=== PATIENT | female | born 1930 | race Caucasian/White ===

== ENCOUNTER 2016-11-13 17:50 | Observation (INO) | payer MEDICARE, OTHER ==
[2016-11-13] MEDS ORDERED: NITROGLYCERIN 0.4 MG 25 EA TAB SL ONE (18:14)
[2016-11-13] MEDS ORDERED: ASPIRIN TABLET 325 MG TAB PO ONE (18:14)
[2016-11-13] MEDS ORDERED: SODIUM CHLORIDE 0.9% (FLUSH) 10 ML SYG IV PRN ×2 (18:14→20:46)
--- NOTE | 2016-11-13 18:24 | ED.PDOC ---
History of Present Illness - General Source: patient, RN notes reviewed, Vital Signs reviewed Exam Limitations: no limitations - History of Present Illness Initial Comments: Patient reports as she was sitting down to dinner she hit her left elbow and developed numbness in her L hand and forearm. She then got some L neck, jaw and tongue numbness. This occurs with her migraines but she did not develop a migraine. She went to the nurses station at the assisted living facility. Her vitals were normal but her heart rate was noted to be irregular. No chest pain, SOB, nausea or diaphoresis. She does report that a week or so ago the nurse noted her heart rate was irregular too. She was cardioverted last year by Dr. Salvador in [place]. Symptoms are currently completely resolved. Timing/Duration: 1/2 hour Severity: mild Improving Factors: nothing Worsening Factors: nothing Associated Symptoms: denies symptoms <Diane Vaughan - Last Filed: 11/13/16 18:57> <Phyllis Davey - Last Filed: 11/13/16 20:25> - General Chief Complaint: Respiratory Problem Stated Complaint: palpatations, left arm numbness and face prior Time Seen by Provider: 11/13/16 18:11 - History of Present Illness Allergies/Adverse Reactions: Allergies Sulfa Antibiotics Allergy (Verified 11/13/16 18:03) Lorazepam [From Ativan] Adverse Reaction (Unknown, Verified 04/01/16 12:35) Other Makes her mean Aspirin Adverse Reaction (Verified 11/13/16 18:03) Celecoxib [From Celebrex] Adverse Reaction (Verified 11/13/16 18:03) Morphine Adverse Reaction (Verified 04/01/16 12:35) Other Home Medications: Ambulatory Orders Atenolol 25 mg PO DAILY 09/17/12 Estradiol 0.5 mg PO DAILY 10/25/15 Saline [Florence Saline Nasal] 1 gel NA PRN PRN 10/26/15 Ipratropium/Albuterol [Duoneb] 3 ml INH Q4H PRN 10/27/15 Pryor-3 Fatty Acids [[place] Oil-1000 200 mg] 1 cap PO DAILY 10/27/15 Apixaban [Eliquis] 2.5 mg PO BID #60 tab 10/29/15 Atorvastatin Calcium [Lipitor] 10 mg PO DAILY 04/01/16 Flecainide Acetate 50 mg PO BID 04/01/16 Furosemide [Lasix] 20 mg PO QAM PRN 04/01/16 Tramadol HCl 25 mg PO BEDTIME 04/01/16 Umeclidinium-Vilanterol [Anoro Ellipta 62.5-25 Mcg/INH] 1 aer INH DAILY Anoro Ellipta 62.5-25 Mcg/INH 11/13/16 Apixaban [Eliquis] 2.5 mg PO 11/13/16 Furosemide [Lasix] 20 mg PO 11/13/16 Review of Systems - Review of Systems Constitutional: States: no symptoms reported. Denies: diaphoresis, malaise, weakness EENTM: States: no symptoms reported Respiratory: States: no symptoms reported. Denies: orthopnea, short of breath Cardiology: States: no symptoms reported. Denies: chest pain, palpitations, syncope Gastrointestinal/Abdominal: States: no symptoms reported. Denies: nausea Musculoskeletal: States: no symptoms reported Skin: States: no symptoms reported Neurological: States: see HPI, numbness - now resolved. Denies: headache, paresthesia, tingling, tremors, weakness Endocrine: States: no symptoms reported <Diane Vaughan - Last Filed: 11/13/16 18:57> Past Medical History (General) - Patient Medical History Hx Seizures: No Hx Stroke: No Hx Dementia: No Hx Asthma: No Hx of COPD: Yes Hx Cardiac Disorders: Yes Hx Congestive Heart Failure: Yes Hx Pacemaker: No Hx Hypertension: Yes Hx Thyroid Disease: No Hx Diabetes: No Hx Gastroesophageal Reflux: No Hx Renal Disease: No Hx Cancer: Yes - Lung - R pneumonectomy (top 1/3 removed) Hx of HIV: No Hx MRSA: No - Vaccination History Hx Tetanus, Diphtheria Vaccination: Yes Hx Influenza Vaccination: Yes Hx Pneumococcal Vaccination: Yes Immunizations Up to Date: Yes - Social History Hx Tobacco Use: No Hx Chewing Tobacco Use: No Hx Alcohol Use: No Hx Substance Use: No Hx Substance Use Treatment: No Hx Depression: No Feels Threatened In Home Enviroment: No Feels Threatened In a Relationship: No Hx Physical Abuse: No Hx Emotional Abuse: No Hx Suspected Abuse: No - Female History Patient is a Female of Child Bearing Age (10 -59 yrs old): No Patient : No <Diane Vaughan - Last Filed: 11/13/16 18:57> Family Medical History - Family History Father Living Status: Hx Cardiac Disease: Yes <Diane Vaughan - Last Filed: 11/13/16 18:57> Physical Exam - Physical Exam General Appearance: Alert, Comfortable, No apparent distress, Well Developed, Well Groomed, Well Hydrated, Well Nourished Ears, Nose, Throat: hearing grossly normal, normal ENT inspection Neck: non-tender, full range of motion, supple, normal inspection Respiratory: chest non-tender, lungs clear, normal breath sounds, no respiratory distress, no accessory muscle use Cardiovascular/Chest: normal peripheral pulses, no edema, no gallop, no JVD, no murmur, irregularly irregular Gastrointestinal/Abdominal: normal bowel sounds, non tender, soft, no organomegaly Back Exam: normal inspection, CVA tenderness (R) Extremity: normal range of motion, non-tender, normal inspection, no pedal edema Neurologic: no motor/sensory deficits, alert, normal mood/affect, oriented x 3 Skin Exam: normal color, warm/dry Comments: Vital Signs - 24 hr 11/13/16 11/13/16 18:08 18:13 Temperature 98 F Pulse Rate [ 99 H Left Radial] Respiratory 20 20 Rate O2 Sat by Pulse 98 Oximetry <Diane Vaughan - Last Filed: 11/13/16 18:57> Progress - Progress Progress: 11/13/16 18:57 Labs pending. Care to Dr. Davey. - EKG/XRAY/CT EKG: Sinus, Tachy, nonspecific ST T wave Chg, Unchanged from - 04/01/16 Comments: quality assurance monitor shows frequent PVC's but none seen on EKG XRAY: chest - No acute process <Diane Vaughan - Last Filed: 11/13/16 18:57> - Results/Orders Results/Orders: 11/13/16 11/13/16 11/13/16 18:08 18:13 19:00 Temperature 98 F Pulse Rate [ 99 H 93 H Left Radial] Respiratory 20 20 20 Rate Blood Pressure 136/56 [Right Arm] O2 Sat by Pulse 98 Oximetry 11/13/16 20:00 Temperature Pulse Rate [ 93 H Left Radial] Respiratory 20 Rate Blood Pressure 130/74 [Right Arm] O2 Sat by Pulse 94 L Oximetry 11/13/16 18:14 Sodium Chloride 0.9% (Flush) [Saline Flush Syringe] 10 ml IV PRN PRN 11/13/16 18:15 IV Care:Saline Lock per Protoc QSHIFT Telemetry .ONCE EKG Stat Pulse Ox Stat 11/13/16 18:16 Pulse Oximetry Assessment DAILY Laboratory Results WBC 6.9 K/mm3 (4.8-10.8) 11/13/16 18:20 RBC 5.31 M/mm3 (4.20-5.40) 11/13/16 18:20 Hgb 16.0 gm/dL (12.0-16.0) 11/13/16 18:20 Hct 47.6 % (36.0-47.0) H 11/13/16 18:20 MCV 89.5 fl (81.0-99.0) 11/13/16 18:20 MCH 30.1 pg (27.0-31.0) 11/13/16 18:20 MCHC 33.7 g/dL (33.0-37.0) 11/13/16 18:20 RDW 13.5 % (11.5-14.5) 11/13/16 18:20 Plt Count 214 K/mm3 (130-400) 11/13/16 18:20 MPV 8.2 fl (7.40-10.4) 11/13/16 18:20 Absolute Neuts (auto) 3.80 K/uL (1.8-6.8) 11/13/16 18:20 Absolute Lymphs (auto) 2.50 K/uL (1.0-3.4) 11/13/16 18:20 Absolute Monos (auto) 0.50 K/uL (0.2-0.8) 11/13/16 18:20 Absolute Eos (auto) 0.10 K/uL (0.0-0.4) 11/13/16 18:20 Absolute Basos (auto) 0.00 K/uL (0.0-0.1) 11/13/16 18:20 Neutrophils % 54.5 % (42.0-78.0) 11/13/16 18:20 Lymphocytes % 36.5 % (20.0-50.0) 11/13/16 18:20 Monocytes % 7.4 % (2.0-9.0) 11/13/16 18:20 Eosinophils % 1.0 % (1.0-5.0) 11/13/16 18:20 Basophils % 0.6 % (0.0-2.0) 11/13/16 18:20 PT 12.2 SECONDS (9.4-12.5) 11/13/16 18:20 INR 1.080 11/13/16 18:20 PTT (SP) 39.4 SECONDS (25.1-36.5) H 11/13/16 18:20 Sodium 132 mmol/L (135-145) L 11/13/16 18:20 Potassium 4.4 mmol/L (3.6-5.0) 11/13/16 18:20 Chloride 95 mmol/L (101-111) L 11/13/16 18:20 Carbon Dioxide 28 mmol/L (21-31) 11/13/16 18:20 Anion Gap 13.4 (12-18) 11/13/16 18:20 BUN 14 mg/dL (7-18) 11/13/16 18:20 Creatinine 0.49 mg/dL (0.6-1.3) L 11/13/16 18:20 BUN/Creatinine Ratio 28.6 (10-20) H 11/13/16 18:20 Random Glucose 114 mg/dL (70-105) H 11/13/16 18:20 Serum Osmolality 265.9 mOsm/L (275-295) L 11/13/16 18:20 Calcium 9.8 mg/dL (8.4-10.2) 11/13/16 18:20 Magnesium 1.9 mg/dL (1.8-2.5) 11/13/16 18:20 Creatine Kinase 93 IU/L (26-140) 11/13/16 18:20 CK-MB (CK-2) 4.6 ng/mL (0.0-4.4) H* 11/13/16 18:20 CK-MB (CK-2) % 4.95 % (0.0-4.3) H 11/13/16 18:20 Troponin I < 0.02 ng/mL (0.01-0.05) 11/13/16 18:20 B-Natriuretic Peptide 377.0 pg/ml (0-100) H* 11/13/16 18:20 <Phyllis Davey - Last Filed: 11/13/16 20:25> Departure <Diane Vaughan - Last Filed: 11/13/16 18:57> - Departure Time of Disposition: 20:24 <Phyllis Davey - Last Filed: 11/13/16 20:25> - Departure Clinical Impression: Bigeminy, Hyponatremia CHF (congestive heart failure) Qualifiers: Congestive heart failure type: unspecified congestive heart failure type Congestive heart failure chronicity: chronic Qualified Code(s): I50.9 - Heart failure, unspecified Disposition: Admit Patient Departure Forms: ED Discharge - Pt. Copy, Patient Portal Self Enrollment Referrals: Bora Brown MD [Primary Care Provider] - 1-2 Weeks Home Medications: Ambulatory Orders Atenolol 25 mg PO DAILY 09/17/12 Estradiol 0.5 mg PO DAILY 10/25/15 Saline [[place]orence Saline Nasal] 1 gel NA PRN PRN 10/26/15 Ipratropium/Albuterol [Duoneb] 3 ml INH Q4H PRN 10/27/15 Pryor-3 Fatty Acids [[place] Oil-1000 200 mg] 1 cap PO DAILY 10/27/15 Apixaban [Eliquis] 2.5 mg PO BID #60 tab 10/29/15 Atorvastatin Calcium [Lipitor] 10 mg PO DAILY 04/01/16 Flecainide Acetate 50 mg PO BID 04/01/16 Furosemide [Lasix] 20 mg PO QAM PRN 04/01/16 Tramadol HCl 25 mg PO BEDTIME 04/01/16 Umeclidinium-Vilanterol [Anoro Ellipta 62.5-25 Mcg/INH] 1 aer INH DAILY Anoro Ellipta 62.5-25 Mcg/INH 11/13/16 Apixaban [Eliquis] 2.5 mg PO 11/13/16 Furosemide [Lasix] 20 mg PO 11/13/16 Decision To Admit - Decistion To Admit Decision to Admit Reason: Medical Nature Decision to Admit Date: 11/13/16 Decision to Admit Time: 20:15 <Phyllis Davey - Last Filed: 11/13/16 20:25>
--- NOTE | 2016-11-13 18:47 | RAD ---
EXAM DESCRIPTION: Chest,1 View CLINICAL HISTORY: shortness of breath COMPARISON: October 26, 2015 FINDINGS: Cardiac silhouette is within normal limits. There are surgical clips in the right hilum with right apical capping unchanged compared with the prior exam and compatible with partial lung resection. There is atherosclerosis. EKG leads project over the chest. There is no focal parenchymal or pleural disease. There is no acute osseous process visualized. IMPRESSION: No evidence of acute cardiopulmonary disease. Electronically signed by: Oh Pedroza MD 11/13/2016 6:46 PM CDT
[2016-11-13] MEDS ORDERED: SODIUM CHLORIDE 0.9% 1000ML 1,000 ML IVS PRN (20:46)
[2016-11-13] MEDS ORDERED: LEVALBUTEROL NEBS 0.63 MG/3 ML VIAL INH PRN (20:46)
[2016-11-13] MEDS ORDERED: HYDROcodone 5MG/APAP 325MG 1 EA TAB PO PRN (20:46)
[2016-11-13] MEDS ORDERED: MAGNESIUM HYDROXIDE 30 ML UD PO PRN (20:46)
[2016-11-13] MEDS ORDERED: traMADol HCL 50 MG TAB PO SCH (21:00)
[2016-11-13] MEDS ORDERED: IV SET AND CAP CHANGE INJ INJ SCH (21:00)
[2016-11-13] MEDS: APIXABAN 2.5 MG TAB PO SCH (22:09)
[2016-11-13] MEDS: FUROSEMIDE INJ 20 MG/2 ML VIAL IV SCH (22:09)
[2016-11-14] MEDS ORDERED: LEVALBUTEROL NEBS 1.25 MG/3 ML VIAL INH SCH
[2016-11-14 04:00] VITALS: O2SAT 98
[2016-11-14 06:13] VITALS: BP 106/61; TEMP 98
[2016-11-14] MEDS ORDERED: OMEPRAZOLE CAP 20 MG CAP PO SCH (06:30)
[2016-11-14] MEDS ORDERED: ATENOLOL 25 MG TAB PO SCH (09:00)
[2016-11-14] MEDS: APIXABAN 2.5 MG TAB PO SCH (09:43)
[2016-11-14] MEDS: FUROSEMIDE INJ 20 MG/2 ML VIAL IV SCH (09:43)
--- NOTE | 2016-11-14 18:11 | SSS ---
DATE OF ADMISSION: 11/13/16 DIAGNOSES ON DISCHARGE: 1. Hyponatremia. 2. Cardiac dysrhythmia with PVCs and history of atrial fibrillation. 3. Chronic history of recurring atrial fibrillation on rate control medications as well as Eliquis anticoagulation being followed by Dr. Salvador, apprentice. 4. Mild trauma to the elbow resulting in paresthesias, now resolved. 5. History of chronic obstructive pulmonary disease currently stable. 6. History of hypertension. 7. History of osteoporosis. 8. History of lung cancer in the past with lung resection of the right lobe in 1998. 9. History of migraine headaches with associated neurological symptoms of paresthesias, currently stable. 10. History of chronic hyponatremia showing improvement with gentle fluid restrictions and slight loop diuresis. HISTORY OF PRESENT ILLNESS: This 86 year-old white female was placed in the hospital for overnight observation from the Emergency Room after coming from [place] where she is a resident. She was in the dining room and hit her elbow on the back of a chair and had acute paresthesias extending from the fingers up to the elbow and eventually up to the arm. She eventually noted some numbness on the left cheek and to both sides of her mouth which has subsequently resolved completely even before arriving into the Emergency Room. Nurse at [place] noted some irregularities of her pulse and in the Emergency Room was found to have some isolated PVCs and/or PACs which have been noted in the past. History of atrial fibrillation with an ablation therapy in the past by Dr. Salvador currently on rate control as well as anticoagulant medications. Her sodium was a little on the low side at 132 and was placed for observation to make sure that this did not worsen. She is on special outpatient treatment for her chronic obstructive pulmonary disease and h.s. oxygen. PAST MEDICAL HISTORY: 1. Chronic obstructive pulmonary disease. 2. Peripheral vascular disease. 3. Elevated lipids. 4. Hypertension. 5. Osteoporosis. 6. Osteoarthritis. 7. Lung cancer with right lobe removed in 1998. 8. Chronic migraine headaches. PAST SURGICAL HISTORY: 1. Appendectomy in 1947. 2. Hysterectomy in 1977 with bilateral salpingo-oophorectomy. 3. Right upper lobe lung resection in 1998. 4. Bladder suspension. 5. Cataracts removal bilaterally in 2014. CURRENT MEDICATIONS: Please refer to nurses' notes for an up to date list of medications verified as being taken at home. ALLERGIES: ADVAIR DISKUS, ATIVAN, MACROBID AND MORPHINE. FAMILY HISTORY: Mother of ovarian cancer. SOCIAL HISTORY: The patient is . History of use of tobacco but quit in 1998. REVIEW OF SYSTEMS: Essentially unremarkable compared to previous results. PHYSICAL EXAMINATION: VITAL SIGNS: Afebrile, pulse 78, blood pressure 108/65, pulse oximetry 96% on room air. Weight is 54.4 kilos. GENERAL: The patient is awake, alert and oriented, and communicative and in no acute distress with no paresthesias noted after her elbow was injured at the [facility]. HEENT: Unremarkable. NECK: Supple. No carotid bruits. CHEST: Lungs have some slightly diminished breath sounds, otherwise fairly clear. CARDIOVASCULAR: Heart tones are fairly regular with an occasional extra systole noted in the Emergency Room, but on the morning of discharge was fairly regular with no extra systoles noted. ABDOMEN: Soft with no organomegaly, masses or tenderness. EXTREMITIES: Normal with no significant edema state. NEUROLOGIC: No focal neurological deficits. The patient is awake, alert and oriented, and communicative. LABORATORY: White count is normal at 5,100, hemoglobin 14.2. INR 1.08. Chemistries showed sodium up to 135, potassium 4.1, BUN normal at 12, creatinine 0.41, glucose 91. Serum osmolality is up to 270. Bilirubin 1.1. Troponin zero. Beta natriuretic peptide 377. Albumin 3.6, TSH 3.19. Urine is clean. No cultures obtained. Chest x-ray was unremarkable at this time. HOSPITAL COURSE: The patient was feeling much improved on the morning of discharge and was very much wishing to continue with outpatient therapy. PLAN: The patient is discharged back to [place] to have continued followup with Home Health and with Dr. Brown within the next 2 weeks. To followup with Dr. Salvador if the irregular rapid pulses reoccur. Stay active. Walk daily. Check pulse oximetry while walking at home to see if she needs oxygen and to avoid over using oxygen at bedtime. Return if not improving. #[id number] [facility]
== END 2016-11-14 12:00 ==
LOC: ER 17:50 → MS 20:30 → INTOOBSV 20:30
PROVIDERS: ADMIT Emergency Medicine; ATTEND Emergency Medicine
DX: E87.1 Hypo-osmolality and hyponatremia (principal); I48.91 Unspecified atrial fibrillation; I49.3 Ventricular premature depolarization; R06.02 Shortness of breath; S59.909A Unspecified injury of unspecified elbow, initial encounter; R20.2 Paresthesia of skin; J44.9 Chronic obstructive pulmonary disease, unspecified; I10 Essential (primary) hypertension; M81.0 Age-related osteoporosis without current pathological fracture; G43.909 Migraine, unspecified, not intractable, without status migrainosus; M19.90 Unspecified osteoarthritis, unspecified site; I73.9 Peripheral vascular disease, unspecified; W22.03XA Walked into furniture, initial encounter; Y92.128 Other place in nursing home as the place of occurrence of the external cause; Z79.01 Long term (current) use of anticoagulants; Z79.899 Other long term (current) drug therapy; Z88.3 Allergy status to other anti-infective agents; Z88.6 Allergy status to analgesic agent; Z88.8 Allergy status to other drugs, medicaments and biological substances; Z87.891 Personal history of nicotine dependence; Z85.118 Personal history of other malignant neoplasm of bronchus and lung; Z90.2 Acquired absence of lung [part of]; Z90.49 Acquired absence of other specified parts of digestive tract; Z90.710 Acquired absence of both cervix and uterus; Z98.42 Cataract extraction status, left eye; Z98.41 Cataract extraction status, right eye; Z80.41 Family history of malignant neoplasm of ovary
CPT/HCPCS: 36415 ×3; 71010; 80048; 80053; 81001; 82550; 82553; 83880; 84443; 84484 ×2; 85025 ×2; 85610; 85730; 93005; 94760; 96361 ×2; 96374; 96376; 97116; 97162; 99284; G0378; G8978; G8979; G8980; J1940 ×2; J7030

== ENCOUNTER → 2017-02-20 | Outpatient (CLI) | payer MEDICARE, OTHER | END | disposition home or self-care (01) | LOC: GMAM 10:28 | PROVIDERS: ATTEND Family Medicine | DX: G44.209 Tension-type headache, unspecified, not intractable (principal) ==

== ENCOUNTER → 2017-02-22 | Outpatient (CLI) | payer MEDICARE, OTHER ==
--- NOTE | 2017-02-22 20:18 | CT ---
PROCEDURE: Head HISTORY: HEADACHE Indication: Same as above Comparison: None Technique: CT of the head was done without intravenous contrast was done in the axial plane only This exam was performed according to our departmental dose-optimization program, which includes automated exposure control, adjustment of the mA and/or KV according to the patient's size and/or use of iterative reconstruction technique. FINDINGS: There is no intracranial hemorrhage, midline shift mass effect or acute focal infarct. There is prominence of the sylvian fissures and the cortical sulci reflecting age related volume loss. There is minimal periventricular and deep white matter low attenuation, most likely related to small vessel white matter ischemic disease. Benign intracranial vascular wall calcifications are seen. If clinical concern exists regarding an acute ischemic/vascular pathology being responsible for patient's symptomatology, an MRI of the brain is more sensitive than the current study, in ruling out such a possibility. There is good cabral/white matter differentiation. The ventricular system is normal. The mastoid air cells are unremarkable . The paranasal sinuses are unremarkable . There is no visualization of acute fractures involving the calvarium or the skull base. IMPRESSION: There is no acute intracranial abnormality. Age related and chronic involutional changes are seen. Electronically signed by: Alonso Hernandez MD 02/22/2017 8:17 PM CDT Workstation: [id number]
--- NOTE | 2017-02-22 20:32 | CT ---
PROCEDURE: Sinuses CLINICAL HISTORY: HEADACHE INDICATION: Same as above Comparison: CT of the head done on the same day . TECHNIQUE: CT of the paranasal sinuses was done without intravenous contrast, followed by orthogonal reconstructions. This exam was performed according to our departmental dose-optimization program, which includes automated exposure control, adjustment of the mA and/or KV according to the patient's size and/or use of iterative reconstruction technique. FINDINGS: There is no mucoperiosteal thickening in the bilateral maxillary sinuses. No air-fluid levels are seen in the maxillary sinuses. The ostiomeatal complexes are patent bilaterally . The ethmoidal air cells are unremarkable . The frontal sinus is hypoplastic . The sphenoid sinus is unremarkable . The bony nasal septum is shows minimal deviation to the right side in its anterior one third . There is no significant turbinate hypertrophy. There is no visualization of any nasopharyngeal mass. The visualized mastoid air cells are unremarkable . There are no soft tissue facial abscesses. The visualized portions of the brain are unremarkable. The remaining soft tissues, bilateral orbital and visualized osseous structures are unremarkable IMPRESSION: Unremarkable CT of the paranasal sinuses . Place of interpretation: [facility]. Electronically signed by: Alonso Hernandez MD 02/22/2017 8:30 PM CDT Workstation: [id number]
== END | disposition home or self-care (01) ==
LOC: CT 09:15
PROVIDERS: ATTEND Family Medicine
DX: G44.209 Tension-type headache, unspecified, not intractable (principal)

== ENCOUNTER → 2017-05-16 | Outpatient (CLI) | payer MEDICARE, OTHER | LOC: BFHH 09:47 | PROVIDERS: ATTEND Family Medicine | DX: R73.9 Hyperglycemia, unspecified (principal); I11.0 Hypertensive heart disease with heart failure; I48.91 Unspecified atrial fibrillation; I50.20 Unspecified systolic (congestive) heart failure; E78.5 Hyperlipidemia, unspecified ==

== ENCOUNTER → 2017-07-17 | Outpatient (CLI) | payer MEDICARE, OTHER | LOC: GMA 18:16 | PROVIDERS: ATTEND Nurse Practitioner Family | DX: R32 Unspecified urinary incontinence (principal) ==

== ENCOUNTER 2017-07-27 16:07 | Inpatient (IN) | payer MEDICARE, OTHER ==
[2017-07-27] MEDS ORDERED: IPRATROPIUM/ALBUTEROL 3 ML VIAL NEB ONE (17:09)
[2017-07-27] MEDS ORDERED: methylPREDNISolone SODIUM SUC 125 MG/2 ML VIAL IM ONE (17:11)
[2017-07-27] MEDS ORDERED: diltiaZEM DRIP 125 MG in SODIUM CHLORIDE 0.9% 100ML 100 ML IVPB SCH (17:30)
--- NOTE | 2017-07-27 17:41 | RAD ---
EXAM DESCRIPTION: Chest,1 View CLINICAL HISTORY: SOB COMPARISON: 13 Nov 2016, 05 July 2017 TECHNIQUE: AP portable chest FINDINGS: The exam reveals evidence of partial right lung resection with elevation of the right hemidiaphragm. A background of chronic interstitial lung disease is observed in both lungs. The heart is within range of normal.Mild pulmonary vascular congestion is observed. No overt pulmonary edema is seen. The heart is within range of normal. IMPRESSION: Mild pulmonary vascular congestion is observed with out pulmonary edema. Electronically signed by: Scotty العراقي MD 07/27/2017 5:40 PM [facility]
[2017-07-27] MEDS ORDERED: methylPREDNISolone SODIUM SUC 125 MG/2 ML VIAL IV ONE (17:47)
--- NOTE | 2017-07-27 19:07 | ED.PDOC ---
History of Present Illness - General Chief Complaint: Respiratory Problem Stated Complaint: SHORT OF BREATH, EDEMA, ANOREXIA, WEAKNESS Time Seen by Provider: 07/27/17 17:05 Source: patient Exam Limitations: no limitations - History of Present Illness Comments: SOB SINCE JULY 05. HAS BEEN SEEN HERE AND BY HER PCP. SHE WAS PLACED ON ANTIBIOTICS BUT SHE IS STILL NOT IMPROVING. SHE HAS COPD AND USES OXYGEN AT NIGHT. SHE TESTED NEGATIVE FOR THE FLU. Timing/Duration: other - ONSET SINCE Cough Quality/Degree: moderate, productive cough Possible Cause: no prior episodes Improving Factors: nothing Worsening Factors: nothing Associated Symptoms: cough, shortness of breath, wheezing Respiratory Risk Factors: no cause identified Allergies/Adverse Reactions: Allergies Sulfa Antibiotics Allergy (Verified 11/13/16 18:03) Lorazepam [From Ativan] Adverse Reaction (Unknown, Verified 04/01/16 12:35) Other Makes her mean Aspirin Adverse Reaction (Verified 11/13/16 18:03) Celecoxib [From Celebrex] Adverse Reaction (Verified 11/13/16 18:03) Morphine Adverse Reaction (Verified 04/01/16 12:35) Other Home Medications: Ambulatory Orders Estradiol 0.5 mg PO DAILY 10/25/15 Saline [[place] Saline Nasal] 1 gel NA PRN PRN 10/26/15 Ipratropium/Albuterol [Duoneb] 3 ml INH Q4H PRN 10/27/15 [place]-3 Fatty Acids [[place] Oil-1000 200 mg] 1 cap PO DAILY 10/27/15 Apixaban [Eliquis] 2.5 mg PO BID #60 tab 10/29/15 Atorvastatin Calcium [Lipitor] 10 mg PO DAILY 04/01/16 Flecainide Acetate 50 mg PO BID 04/01/16 Tramadol HCl 50 mg PO Q6HR PRN 04/01/16 Calcium 1 ea DAILY 11/13/16 Furosemide [Lasix] 20 mg PO DAILY PRN 11/13/16 Multiple Vitamin [Multi Vitamin] 1 tab PO DAILY 11/13/16 Ophthalmic Salt Solution [Dacriose] 1 applic BOTH_EYES DAILY 11/13/16 Umeclidinium-Vilanterol [Anoro Ellipta 62.5-25 Mcg/INH] 1 puff INH DAILY Fexofenadine HCl [Jesi Allergy] 180 mg PO DAILY 07/27/17 Flecainide [Tambocor] 25 mg PO BID 07/27/17 Fluticasone Prop 0.05% Nasal [Flonase Nasal Whitney] 50 mcg BRANDON DAILY 07/27/17 Metoprolol Succinate [Toprol Xl] 25 mg PO DAILY 07/27/17 SUMAtriptan SUCCINATE [Imitrex] 50 mg PO DAILY PRN 07/27/17 Trolamine Salicylate [Aspercreme Nighttime] 10 % EX DAILY PRN 07/27/17 Review of Systems - Review of Systems Constitutional: States: no symptoms reported EENTM: States: no symptoms reported Respiratory: States: cough, short of breath, wheezing Cardiology: States: no symptoms reported, edema Gastrointestinal/Abdominal: States: no symptoms reported Genitourinary: States: no symptoms reported Musculoskeletal: States: no symptoms reported Skin: States: no symptoms reported Neurological: States: no symptoms reported Endocrine: States: no symptoms reported Hematologic/Lymphatic: States: no symptoms reported Past Medical History (General) - Patient Medical History Hx Seizures: No Hx Stroke: No Hx Dementia: No Hx Asthma: No Hx of COPD: Yes Hx Cardiac Disorders: Yes Hx Congestive Heart Failure: Yes Hx Pacemaker: No Hx Hypertension: Yes Hx Thyroid Disease: No Hx Diabetes: No Hx Gastroesophageal Reflux: No Hx Renal Disease: No Hx Cancer: Yes - Lung - R pneumonectomy (top 1/3 removed) Hx of HIV: No Hx MRSA: No - Vaccination History Hx Tetanus, Diphtheria Vaccination: Yes Hx Influenza Vaccination: Yes Hx Pneumococcal Vaccination: Yes - Social History Hx Tobacco Use: No Hx Chewing Tobacco Use: No Hx Alcohol Use: No Hx Substance Use: No Hx Substance Use Treatment: No Hx Depression: No Hx Physical Abuse: No Hx Emotional Abuse: No Hx Suspected Abuse: No - Activities of Daily Living Snf/Assisted Living (if applicable):: [place] - Female History Patient : No Family Medical History - Family History Father Living Status: Hx Family Asthma: No Hx Family Congestive Heart Failure: Yes Hx Family Hypertension: Yes Hx Family Stroke: No Hx Cardiac Disease: Yes Hx Family Diabetes: No Hx Family Cancer: No Physical Exam - Physical Exam General Appearance: Alert, Ill Appearing, Well Hydrated, Well Nourished Eye Exam: bilateral normal ENT Exam: normal ENT inspection, TMs normal, pharynx normal, nasal congestion Neck: non-tender, full range of motion, supple, normal inspection, trachea midline Respiratory: chest non-tender, rhonchi, wheezing Cardiovascular/Chest: normal peripheral pulses, tachycardia, irregularly irregular Gastrointestinal/Abdominal: normal bowel sounds, non tender, soft, no organomegaly, no pulsatile mass Extremity: normal range of motion, swelling - SWELLING OF THE FEET Neurologic: no motor/sensory deficits, normal mood/affect, oriented x 3 Skin Exam: normal color, warm/dry Lymphatic: no adenopathy Progress - Results/Orders Results/Orders: THE PATIENT ARRIVED ON ATRIAL FIB WITH RVR AND RESPONDED TO 20 MG OF CARDIZEM. SHE HAS AN ELEVATED BNP AND HAS RECIEVED LASIX. HER CXR WITH MILD VASCULAR CONGESTION. SHE ALSO HAS A HYPONATREMIA OF 121. SHE WILL BE OBSERVED. THE CASE WAS DISCUSSED WITH BECK ELAINE RN-WILL ADMIT Departure - Departure Clinical Impression: COPD (chronic obstructive pulmonary disease) with acute bronchitis, Atrial fibrillation with rapid ventricular response, Hyponatremia CHF (congestive heart failure) Qualifiers: Congestive heart failure type: unspecified congestive heart failure type Congestive heart failure chronicity: acute on chronic Qualified Code(s): I50.9 - Heart failure, unspecified Disposition: Admit Patient Condition: Fair Departure Forms: ED Discharge - Pt. Copy, Patient Portal Self Enrollment Referrals: Bora Brown MD [Primary Care Provider] - 1-2 Weeks Home Medications: Ambulatory Orders Estradiol 0.5 mg PO DAILY 10/25/15 Saline [[place] Saline Nasal] 1 gel NA PRN PRN 10/26/15 Ipratropium/Albuterol [Duoneb] 3 ml INH Q4H PRN 10/27/15 [place]-3 Fatty Acids [[place] Oil-1000 200 mg] 1 cap PO DAILY 10/27/15 Apixaban [Eliquis] 2.5 mg PO BID #60 tab 10/29/15 Atorvastatin Calcium [Lipitor] 10 mg PO DAILY 04/01/16 Flecainide Acetate 50 mg PO BID 04/01/16 Tramadol HCl 50 mg PO Q6HR PRN 04/01/16 Calcium 1 ea DAILY 11/13/16 Furosemide [Lasix] 20 mg PO DAILY PRN 11/13/16 Multiple Vitamin [Multi Vitamin] 1 tab PO DAILY 11/13/16 Ophthalmic Salt Solution [Dacriose] 1 applic BOTH_EYES DAILY 11/13/16 Umeclidinium-Vilanterol [Anoro Ellipta 62.5-25 Mcg/INH] 1 puff INH DAILY Fexofenadine HCl [Jesi Allergy] 180 mg PO DAILY 07/27/17 Flecainide [Tambocor] 25 mg PO BID 07/27/17 Fluticasone Prop 0.05% Nasal [Flonase Nasal [place]] 50 mcg BRANDON DAILY 07/27/17 Metoprolol Succinate [Toprol Xl] 25 mg PO DAILY 07/27/17 SUMAtriptan SUCCINATE [Imitrex] 50 mg PO DAILY PRN 07/27/17 Trolamine Salicylate [Aspercreme Nighttime] 10 % EX DAILY PRN 07/27/17 Decision To Admit - Decistion To Admit Decision to Admit Reason: Admit from ER Decision to Admit Date: 07/27/17 Decision to Admit Time: 19:26
[2017-07-27] MEDS ORDERED: FUROSEMIDE INJ 40 MG/4 ML VIAL IV ONE (19:12)
--- NOTE | 2017-07-27 20:53 | HP ---
SUPERVISING PHYSICIAN: CHIEF COMPLAINT: Shortness of breath, lower extremity edema, anorexia, weakness. HISTORY OF PRESENT ILLNESS: Ms. Martínez is an 87 year-old female patient who presented to the Emergency Department from [facility]. She noted she had been short of breath since July 05. She has been seen previously by her primary care physician and has been placed on antibiotics at some point but has not had any significant improvement. She does have a history of chronic obstructive pulmonary disease and uses oxygen at night. She was recently tested for the flu in the last week and was reported as negative. Laboratory studies initially in the Emergency Department showed that she was with a normal white count of 10,400 but had a left shift. Chemistries showed she was hyponatremic with a sodium of 121 with a serum osmolality of 248. Liver functions showed some slight elevation including AST, ALT and alkaline phosphatase. Troponin showed to be within normal limits at 0.02 but her BNP was elevated at 607. Vital signs initially on presentation showed she was having a heart rate of 148 with temperature of 97.8, blood pressure 147/76, saturation 98% on room air with respirations of 20. She has a history of chronic atrial fibrillation and on Eliquis. EKG showed atrial fibrillation with a rapid ventricular response. She was then given a dose of Cardizem which did convert her to a slower rhythm with a controlled ventricular rate. X-ray completed showed there was some mild pulmonary vascular congestion reserve without any pulmonary edema per radiology interpretation of single view of chest. In addition to the Cardizem she was given a dose of Lasix 40 mg as well as started on a Duoneb treatment and some Solu-Medrol. She is now being admitted to the medical/surgical floor for exacerbation of chronic obstructive pulmonary disease having failed outpatient management along with exacerbation of congestive heart failure with an elevated BNP along with atrial fibrillation that showed a rapid ventricular rate requiring control with Cardizem. She is now being admitted in stable condition. PAST MEDICAL HISTORY: 1. Chronic obstructive pulmonary disease. 2. Peripheral vascular disease. 3. Chronic hyponatremia. 4. Chronic history of recurrent atrial fibrillation on rate controlled medication including anticoagulation with Eliquis and followed by Dr. Salvador, glaze handler.. 5. Hypertension. 6. Osteoporosis. 7. History of lung cancer in the past with lung resection of right lobe in 1998. 8. History of migraine headaches.that have been associated with neurological symptoms in the past with some paresthesias. PAST SURGICAL HISTORY: 1. Appendectomy in 1947. 2. Hysterectomy in 1977 with bilateral salpingo-oophorectomy. 3. Lung resection in 1998 on the right upper lobe. 4. Bladder suspension. 5. Cataracts removal bilaterally in 2014. CURRENT MEDICATIONS: 1. Saline nasal spray as needed. 2. Flecainide acetate 25 mg b.i.d. 3. Lasix 20 mg daily. 4. Tramadol 50 mg every 6 hours as needed for pain. 5. Dacriose one applied to both eyes daily. 6. Aspercreme nighttime 10% as needed. 7. Multivitamin daily. 8. [place] 3 fatty acids, one capsule daily. 9. Estradiol 0.5 mg daily. 10. Calcium one tablet daily. 11. Eliquis 2.5 mg b.i.d. 12. [place] Ellipta 62.5-25 mcg, 1puff inhaled daily. 13. Imitrex 50 mg as needed for headaches. 14. Flonase nasal spray, 50 mcg daily. 15. Lipitor 10 mg daily. 16. Jesi.allergy 180 mg daily. 17. Metoprolol 25 mg daily. 18. Duoneb 3 mLs inhaled every 4 hours as needed. ALLERGIES: Sulfa antibiotics, Lorazepam, aspirin, Celebrex, morphine, Advair Diskus, Macrobid. FAMILY HISTORY: Father and mother are both . Father at age 90 from advanced age. Mother 90 years of age from ovarian cancer. She has a brother who is healthy. She has 5 children, 3 , one stillborn girl. 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 She does have a history of tobacco abuse but quit in 1998. She denies any recent alcohol or illicit drug use. REVIEW OF SYSTEMS: CONSTITUTIONAL: Denies fevers, chills or unintentional weight loss but does note she had some weakness. HEENT: She does have some rhinorrhea intermittently but denies sore throats or cough. CARDIOVASCULAR: Denies chest pains, palpitations but does have a longstanding history of atrial fibrillation on Eliquis with some reported edema. GASTROINTESTINAL: Denies constipation, diarrhea or nausea. GENITOURINARY: Denies dysuria or urinary symptoms. NEUROLOGICAL: Has a history of migraines but no reported vision changes or neurological deficits. She does have some notable weakness but no reported focal weaknesses or any sensory deficits. PHYSICAL EXAMINATION: VITAL SIGNS: Temperature 97.5, pulse initially 148, blood pressure 147/76, respirations 20, saturation 90% on room air. After 25 mg of Cardizem, heart rate was 84, blood pressure 123/61, saturation 97% on 2 liter nasal cannula at rest with respirations of 16. Admission weight 54.4 kg. GENERAL: The patient appears frail and ill but well hydrated and well- nourished. HEENT: Tympanic membranes clear bilaterally. Oropharynx pink, moist with no notable lesions. There was some nasal congestion noted bilaterally. NECK: Full range of motion, non-tender, no jugular venous distention. CHEST: There are some very faint expiratory wheezing heard throughout with some rhonchi heard towards the bilateral bases. CARDIOVASCULAR: Irregular rate and rhythm without appreciable murmurs, rubs, or gallops. ABDOMEN: Soft, non-tender, positive bowel sounds. EXTREMITIES: There is noted nonpitting edema to the bilateral extremities but clubbing or cyanosis. NEUROLOGIC: She is alert and oriented x3 with no notable motor or sensory deficits. Cranial nerves II through XII are grossly intact. Facial features were symmetrical. Extraocular movement within normal limits. No notable nystagmus. LABORATORY: CBC showed normal white count of 10,400 with hemoglobin 14, head trauma 40.1 with platelet count 334,000. Differential does show a left shift. Chemistries showed a hyponatremia with sodium 121, potassium 4.9, carbon dioxide 26, BUN 13, creatinine 0.5, glucose 178, serum osmolality low at 248. Calcium 9.6. Liver functions showed elevation of total bilirubin at 1.3. AST 66, ALT 95, alkaline phosphatase 153, troponin 0.2, BNP initially 607. Urinalysis showed to be within normal limits. MICROBIOLOGY: Sputum culture pending along with blood cultures pending. RADIOLOGY: Chest x-ray single view in the Emergency Department per radiology interpretation showed mild pulmonary vascular congestion without pulmonary edema. ASSESSMENT: 1. Electrolyte imbalance with a moderate hyponatremia with patient possibly being chronically hyponatremic on current multiple medications. 2. Chronic atrial fibrillation with initial rapid ventricular rate controlled with Cardizem on chronic Eliquis. 3. Exacerbation of chronic obstructive pulmonary disease with concerns early pneumonia versus bronchitis having failed outpatient management with a negative flu test requiring initiation of parenteral antibiotics and cortical steroids along with bronchodilators and aggressive pulmonary hygiene. 4. Congestive heart failure acute on chronic, uncertain etiology with no current echocardiogram available for review with radiographic evidence for vascular congestion but no obvious edema requiring initiation of loop diuretics and fluid restriction. 5. Peripheral vascular disease with some peripheral neuropathy. 6. Hyperlipidemia. 7. Hypertension. 8. Osteoporosis and osteoarthritis. 9. History of lung cancer with a previous lung resection of the right lobe in 1998. 10. History of migraine headaches. PLAN: The patient will be admitted to the medical/surgical floor for further evaluation and treatment again with concerns for chronic obstructive pulmonary disease exacerbation with early pneumonia complicated by acute on chronic congestive heart failure exacerbation. She will be started on aggressive pulmonary hygiene every 8 hours, Xopenex p.r.n. as needed along with aggressive pulmonary hygiene and initiating of antibiotic therapy with Rocephin and azithromycin awaiting sputum cultures. She was given 40 of Lasix in the Emergency Department, this will be continued to help assist with removal of some of the vascular congestion and exacerbation of her congestive heart failure with continued Lasix at 40 mg b.i.d. tomorrow. We will plan to repeat x -ray in the morning and repeat laboratory studies. I have also started her on continued Solu-Medrol as she was showing some exacerbation of chronic obstructive pulmonary disease with some wheezing. She will have DVT prophylaxis as per protocol along with the Eliquis. We will anticipate her length of stay to be at least 2 to 3 days and until clinically stable, will continue to monitor nad treat appropriately. #[id number] [facility]
[2017-07-27] MEDS ORDERED: ONDANSETRON INJ 4 MG/2 ML VIAL IV PRN (21:25)
[2017-07-27] MEDS ORDERED: NITROGLYCERIN 0.4 MG 25 EA TAB SL PRN (21:25)
[2017-07-27] MEDS ORDERED: ACETAMINOPHEN 325 MG TAB PO PRN (21:25)
[2017-07-27] MEDS ORDERED: LEVALBUTEROL NEBS 1.25 MG/3 ML VIAL NEB PRN (21:56)
[2017-07-27] MEDS ORDERED: AZITHROMYCIN IV 500 MG in SODIUM CHLORIDE 0.9% 250ML 250 ML IVPB SCH (22:30)
[2017-07-27] MEDS ORDERED: SODIUM CHL 0.9% 100ML MINI-BAG 100 ML IVPB ONE (23:01)
[2017-07-27] MEDS: cefTRIAXone SODIUM 2 GM in SODIUM CHL 0.9% 100ML MINI-BAG 100 ML IVPB SCH (23:04)
[2017-07-27] MEDS: SODIUM CHLORIDE 0.9% (FLUSH) 10 ML SYG IV PRN (23:05)
[2017-07-27] MEDS: IV SET AND CAP CHANGE INJ INJ SCH (23:05)
[2017-07-27] MEDS ORDERED: traMADol HCL 50 MG TAB PO PRN (23:26)
--- NOTE | 2017-07-27 23:28 | PCM.CORE ---
Physician DVT/VTE - Prophylaxis Currently: Patient already on anticoagulation therapy - connie - Nurse DVT Assessment & Total Each Risk Factor Represents 3 Points: Age over 75 years, Medical PT with Hx of [place], CHF, Severe infection/sepsis Each Risk Factor Represents 1 Point: Medical PT at Bed Rest Each Risk Factor is 1 Point: Serious Lung disease (pnemonia <1month, COPD, emphysema,etc) DVT Assessment Score: 8 - 5 or more Very High Risk Treatments: Early Ambulation *, Sequential Compression Device
[2017-07-28] MEDS ORDERED: AZITHROMYCIN IV 500 MG VIAL IVPB ONE ×2 (00:13→23:39)
[2017-07-28] MEDS ORDERED: SODIUM CHLORIDE 0.9% 250ML 250 ML ONE ×2 (00:13→23:38)
[2017-07-28] MEDS: methylPREDNISolone SODIUM SUC 125 MG/2 ML VIAL IV SCH ×3 (00:19→12:17)
[2017-07-28] MEDS: SODIUM CHLORIDE 0.9% (FLUSH) 10 ML SYG IV PRN ×2 (00:19→23:44)
[2017-07-28] MEDS: APIXABAN 2.5 MG TAB PO SCH ×3 (00:25→21:24)
[2017-07-28] MEDS: FLECAINIDE 50 MG TAB PO SCH ×3 (00:25→21:25)
[2017-07-28] MEDS: LEVALBUTEROL NEBS 1.25 MG/3 ML VIAL NEB SCH ×4 (00:58→23:47)
--- NOTE | 2017-07-28 06:32 | RAD ---
EXAM DESCRIPTION: Chest,1 View CLINICAL HISTORY: CHF COMPARISON: 07/27/2017 TECHNIQUE: AP portable chest FINDINGS: Partial right lung resection with elevation of the right hemidiaphragm. A background of chronic interstitial lung disease is observed in both lungs. The heart is not enlarged.Pulmonary vascular congestion. No definite pulmonary edema is seen. No pneumothorax. Leads overlie the chest. Atherosclerotic calcification of the aortic arch. Upper abdominal soft tissues are stable. IMPRESSION: Stable appearance of the chest. Electronically signed by: Fer Arndt 07/28/2017 6:31 AM [facility]
[2017-07-28] MEDS ORDERED: METOPROLOL SUCCINATE XL 25 MG TAB PO SCH (09:00)
[2017-07-28] MEDS: MULTIPLE VITAMIN 1 EA TAB PO SCH (09:25)
[2017-07-28] MEDS: FISH OIL 1,200 MG CAP PO SCH (09:26)
[2017-07-28] MEDS: CALCIUM CARBONATE-VITAMIN D 500 MG TAB PO SCH (09:26)
[2017-07-28] MEDS: ESTRADIOL TAB 1 MG PO SCH (09:26)
[2017-07-28] MEDS: FUROSEMIDE INJ 40 MG/4 ML VIAL IV SCH ×2 (09:27→17:37)
[2017-07-28] MEDS: SODIUM CHLORIDE 0.9% (FLUSH) 10 ML SYG IV SCH ×2 (09:27→21:24)
[2017-07-28] MEDS: NON-FORMULARY MEDICATION 1 EA MIS (Fexofenadine Hcl [Allegra Allergy] 180 MG) PO SCH (09:28)
[2017-07-28] MEDS: OPHTHALMIC SALT SOLUTION 120 ML BTTL BOTH_EYES SCH (09:28)
[2017-07-28] MEDS: FLUTICASONE PROP 0.05% NASAL 16 GM BTTL BNAS SCH (09:28)
[2017-07-28] MEDS: NON-FORMULARY MEDICATION 1 EA MIS (Umeclidinium-Vilanterol [Anoro Ellipta 62.5-25 Mcg/Inh] INH SCH (15:35)
[2017-07-28] MEDS ORDERED: METOPROLOL TARTRATE 50 MG TAB PO SCH ×2 (17:00→21:00)
--- NOTE | 2017-07-28 19:00 | PN ---
DATE: 07/28/17 SUPERVISING PHYSICIAN: Bora Brown M.D. SUBJECTIVE: The patient is sitting up in her bed. She is eating her meal. Continues complaints of shortness of breath and congestion as well as weakness. Denies chest pain, nausea, vomiting, diarrhea or constipation. OBJECTIVE: VITAL SIGNS: She is afebrile, heart rate 101. It was as high as 135 this morning. Blood pressure 93/69, respiratory rate 18 but was 22 earlier today. O2 sat is 94% on 2 liters nasal cannula. The patient has had a negative I and O of about 4 liters and she has lost 2.3 kg since admission. RESPIRATORY: The patient is slightly dyspneic. Her lungs are diminished at the bases with a few scattered crackles. CARDIAC: Irregular rhythm, slightly tachycardic rate. GASTROINTESTINAL: Abdomen is soft, nondistended, non-tender. Bowel sounds are positive. EXTREMITIES: No cyanosis, clubbing or edema. NEUROLOGIC: She is awake, alert and oriented times three. LABORATORY: Sodium has improved from 121 yesterday to 126 today with potassium of 4, chloride 88, carbon dioxide 28, BUN 12, creatinine 0.5, glucose 169, serum osmolality 257. AST 51, ALT 82, alkaline phosphatase 123. WBCs are 6 with hemoglobin 13.6, hematocrit 39.4, neutrophils 86.2%. Sputum culture is pending. RADIOLOGY: Chest x-ray per radiology interpretation shows a stable appearance of the chest. All other labs and films have been reviewed via the EMR. ASSESSMENT: 1. Electrolyte imbalance with a moderate hyponatremia with patient possibly being chronically hyponatremic on current multiple medications. 2. Chronic atrial fibrillation with initial rapid ventricular rate controlled with Cardizem on chronic Eliquis. 3. Exacerbation of chronic obstructive pulmonary disease with concerns early pneumonia versus bronchitis having failed outpatient management with a negative flu test requiring initiation of parenteral antibiotics and cortical steroids along with bronchodilators and aggressive pulmonary hygiene. 4. Congestive heart failure acute on chronic, uncertain etiology with no current echocardiogram available for review with radiographic evidence for vascular congestion but no obvious edema requiring initiation of loop diuretics and fluid restriction. 5. Peripheral vascular disease with some peripheral neuropathy. 6. Hyperlipidemia. 7. Hypertension. 8. Osteoporosis and osteoarthritis. 9. History of lung cancer with a previous lung resection of the right lobe in 1998. 10. History of migraine headaches. PLAN: We will continue present supportive care. I have ordered routine labs for in the morning. She has received 40 mg of Lasix IV twice today. Tomorrow I will give her 40 mg IV. Hopefully by Sunday we will restart her home dosage of Lasix with just 20 mg. She may need to have a higher dose on discharge. She received IV Cardizem today because her heart rate went back up, so I have discontinued her Metoprolol succinate and I have changed it to Metoprolol tartrate, and I have increased it to 50 mg b.i.d. I have also added salt to her dietary tray. I have added Mucinex to help with her coughing. We will continue to monitor her closely and follow as needed. Dr. Brown is the collaborating physician available for consultation. #[id number] [facility]
[2017-07-28] MEDS: guaiFENesin ER TAB 600 MG TAB PO SCH (21:24)
[2017-07-28] MEDS: ATORVASTATIN 10 MG TAB PO SCH (21:24)
[2017-07-28] MEDS: traMADol HCL 50 MG TAB PO PRN (21:25)
[2017-07-28] MEDS ORDERED: SODIUM CHL 0.9% 100ML MINI-BAG 100 ML IVPB ONE (22:16)
[2017-07-28] MEDS: cefTRIAXone SODIUM 2 GM in SODIUM CHL 0.9% 100ML MINI-BAG 100 ML IVPB SCH (22:21)
[2017-07-28] MEDS ORDERED: AZITHROMYCIN IV 500 MG in SODIUM CHLORIDE 0.9% 250ML 250 ML IVPB SCH (23:30)
[2017-07-29] MEDS: NON-FORMULARY MEDICATION 1 EA MIS (Umeclidinium-Vilanterol [Anoro Ellipta 62.5-25 Mcg/Inh] INH SCH (08:36)
[2017-07-29] MEDS: LEVALBUTEROL NEBS 1.25 MG/3 ML VIAL NEB SCH ×2 (08:36→14:24)
[2017-07-29] MEDS ORDERED: FUROSEMIDE 40 MG TAB PO SCH (09:00)
[2017-07-29] MEDS: FLECAINIDE 50 MG TAB PO SCH ×2 (10:34→20:17)
[2017-07-29] MEDS: guaiFENesin ER TAB 600 MG TAB PO SCH ×2 (10:34→20:17)
[2017-07-29] MEDS: FLUTICASONE PROP 0.05% NASAL 16 GM BTTL BNAS SCH (10:34)
[2017-07-29] MEDS: OPHTHALMIC SALT SOLUTION 120 ML BTTL BOTH_EYES SCH (10:34)
[2017-07-29] MEDS: CALCIUM CARBONATE-VITAMIN D 500 MG TAB PO SCH (10:34)
[2017-07-29] MEDS: APIXABAN 2.5 MG TAB PO SCH ×2 (10:34→20:17)
[2017-07-29] MEDS: MULTIPLE VITAMIN 1 EA TAB PO SCH (10:34)
[2017-07-29] MEDS: NON-FORMULARY MEDICATION 1 EA MIS (Fexofenadine Hcl [Allegra Allergy] 180 MG) PO SCH (10:34)
[2017-07-29] MEDS: SODIUM CHLORIDE 0.9% (FLUSH) 10 ML SYG IV SCH ×2 (10:35→20:20)
[2017-07-29] MEDS: ESTRADIOL TAB 1 MG PO SCH (10:35)
[2017-07-29] MEDS: FISH OIL 1,200 MG CAP PO SCH (10:35)
[2017-07-29] MEDS: POTASSIUM CHLORIDE 20 MEQ TAB PO SCH (10:43)
[2017-07-29] MEDS ORDERED: FUROSEMIDE 40 MG TAB ONE (11:15)
[2017-07-29] MEDS ORDERED: CEFEPIME 2 GM VIAL IVPB ONE ×2 (15:42→20:01)
[2017-07-29] MEDS ORDERED: SODIUM CHL 0.9% 50ML MIN-BAG+ 50 ML IVPB ONE ×2 (15:42→20:01)
[2017-07-29] MEDS: CEFEPIME 2 GM in SODIUM CHL 0.9% 50ML MIN-BAG+ 50 ML IVPB SCH ×2 (15:44→23:47)
[2017-07-29] MEDS: FUROSEMIDE 40 MG TAB PO SCH (16:39)
[2017-07-29] MEDS: METOPROLOL TARTRATE 50 MG TAB PO SCH (16:39)
[2017-07-29] MEDS: traMADol HCL 50 MG TAB PO PRN (20:15)
[2017-07-29] MEDS: ATORVASTATIN 10 MG TAB PO SCH (20:17)
[2017-07-29] MEDS: BIFIDOBACTERIUM INFANTIS 4 MG CAP PO SCH (20:18)
--- NOTE | 2017-07-29 20:54 | PN ---
DATE: 07/29/17 SUPERVISING PHYSICIAN: Bora Brown M.D. SUBJECTIVE: The patient is sitting up in her hospital bed. She is eating her meal. Continues complaints of some weakness with a very productive cough. She has no complaints of chest pain, wheezing, abdominal pain, nausea or vomiting. OBJECTIVE: VITAL SIGNS: Temperature 96, heart rate 100, blood pressure 111/61, respiratory rate 18, O2 sat is 985 on 2 liters nasal cannula. She is -1.5 liters on her I and O and her weight has dropped 4.2 kg since admission. RESPIRATORY: Scattered rhonchi throughout with a few scattered crackles, very coarse breath sounds. Slightly dyspneic with talking. She can only speak in short phrases. CARDIAC: Regular rate, irregular rhythm. GASTROINTESTINAL: Abdomen is soft, nondistended, non-tender. Bowel sounds are positive. EXTREMITIES: No cyanosis, clubbing or edema. NEUROLOGIC: She is awake, alert and oriented times three. LABORATORY: WBCs are 13.9 with hemoglobin 13.9, hematocrit 40.6, neutrophils 89.6%. Sodium has improved to 131 with potassium 3.6, chloride 89, carbon dioxide 32, BUN 17, creatinine 0.53. Glucoses have run between 169 and 178. Magnesium 1.9. Preliminary sputum culture shows gram-negative rods. Lab reported that it was suspicious for Pseudomonas. All other labs and films have been reviewed via the EMR. ASSESSMENT: 1. Electrolyte imbalance with a moderate hyponatremia with patient possibly being chronically hyponatremic on current multiple medications and improving with fluid restrictions. 2. Chronic atrial fibrillation with initial rapid ventricular rate controlled with Cardizem and on chronic Eliquis. 3. Exacerbation of chronic obstructive pulmonary disease with concerns for early pneumonia versus bronchitis having failed outpatient management with a negative flu test requiring initiation of parenteral antibiotics and cortical steroids along with bronchodilators and aggressive pulmonary hygiene. Sputum culture is now concerning for questionable Pseudomonas. 4. Congestive heart failure acute on chronic, uncertain etiology with no current echocardiogram available for review. 5. Peripheral vascular disease with some peripheral neuropathy. 6. Hyperlipidemia. 7. Hypertension. 8. Osteoporosis and osteoarthritis. 9. History of lung cancer with a previous lung resection of the right lobe in 1998. 10. History of migraine headaches. PLAN: We will continue present supportive care. I have ordered lab for in the morning. Due to the concerns for possible Pseudomonas infection on her sputum, I have added Cefipime and discontinued her azithromycin and Ceftriaxone. I have also added Align and restarted her Anoro. We have also added percussion and I have consulted Physical Therapy tomorrow to get her up and moving around. She was changed to 40 mg of Lasix p.o. today from her IV Lasix and she will most likely need to go home on a higher dose of Lasix. Her blood sugars have also been elevated. If they continue to be elevated we may need to add sliding scale. I have also ordered a chest x-ray for in the morning and encouraged good pulmonary hygiene. We discussed fluid restrictions again. I encouraged her to continue to monitor her free water intake. We will continue to monitor the patient closely and follow as needed. Dr. Brown is the collaborating physician available for consultation. #[id number] [facility]
[2017-07-30] MEDS: LEVALBUTEROL NEBS 1.25 MG/3 ML VIAL NEB SCH ×4 (00:30→23:31)
[2017-07-30] MEDS ORDERED: ALPRAZolam 0.25 MG TAB PO PRN (06:51)
--- NOTE | 2017-07-30 07:25 | RAD ---
EXAM DESCRIPTION: Chest,1 View CLINICAL HISTORY: Congestive heart failure FINDINGS/ IMPRESSION: Comparison 07/28/2017 and 10/26/2015 Heart size normal. Postsurgical change with clips in the right hilum. 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 There is no acute infiltrate, pulmonary edema or large effusion Electronically signed by: Bora Carrera MD 07/30/2017 7:24 AM [facility]
[2017-07-30] MEDS ORDERED: CEFEPIME 2 GM VIAL IVPB ONE ×2 (08:05→19:39)
[2017-07-30] MEDS ORDERED: SODIUM CHL 0.9% 50ML MIN-BAG+ 50 ML IVPB ONE ×2 (08:05→19:39)
[2017-07-30] MEDS: NON-FORMULARY MEDICATION 1 EA MIS (Umeclidinium-Vilanterol [Anoro Ellipta 62.5-25 Mcg/Inh] INH SCH (08:25)
[2017-07-30] MEDS: POTASSIUM CHLORIDE 20 MEQ TAB PO SCH (08:47)
[2017-07-30] MEDS: CEFEPIME 2 GM in SODIUM CHL 0.9% 50ML MIN-BAG+ 50 ML IVPB SCH ×2 (08:47→20:44)
[2017-07-30] MEDS: METOPROLOL TARTRATE 50 MG TAB PO SCH ×2 (08:47→17:55)
[2017-07-30] MEDS ORDERED: BIFIDOBACTERIUM INFANTIS 4 MG CAP ONE (08:55)
[2017-07-30] MEDS: ESTRADIOL TAB 1 MG PO SCH (09:00)
[2017-07-30] MEDS: BIFIDOBACTERIUM INFANTIS 4 MG CAP PO SCH ×2 (09:00→20:35)
[2017-07-30] MEDS: APIXABAN 2.5 MG TAB PO SCH ×2 (09:01→20:35)
[2017-07-30] MEDS: FUROSEMIDE 40 MG TAB PO SCH ×2 (09:01→17:55)
[2017-07-30] MEDS: guaiFENesin ER TAB 600 MG TAB PO SCH ×2 (09:01→20:34)
[2017-07-30] MEDS: CALCIUM CARBONATE-VITAMIN D 500 MG TAB PO SCH (09:01)
[2017-07-30] MEDS: FISH OIL 1,200 MG CAP PO SCH (09:02)
[2017-07-30] MEDS: MULTIPLE VITAMIN 1 EA TAB PO SCH (09:02)
[2017-07-30] MEDS: SODIUM CHLORIDE 0.9% (FLUSH) 10 ML SYG IV SCH ×2 (09:03→20:35)
[2017-07-30] MEDS: FLECAINIDE 50 MG TAB PO SCH ×2 (09:04→20:33)
[2017-07-30] MEDS: FLUTICASONE PROP 0.05% NASAL 16 GM BTTL BNAS SCH ×2 (09:05→09:06)
[2017-07-30] MEDS ORDERED: methylPREDNISolone SODIUM SUC 125 MG/2 ML VIAL IV ONE (11:56)
[2017-07-30] MEDS: NON-FORMULARY MEDICATION 1 EA MIS (Fexofenadine Hcl [Allegra Allergy] 180 MG) PO SCH (14:45)
[2017-07-30] MEDS: OPHTHALMIC SALT SOLUTION 120 ML BTTL BOTH_EYES SCH (14:45)
--- NOTE | 2017-07-30 18:38 | PN ---
DATE: 07/30/17 SUPERVISING PHYSICIAN: Naman Vazquez M.D. SUBJECTIVE: The patient is resting in the chair. She just finished with physical therapy. She said she is feeling somewhat better, but still has some shortness of breath. She has been afebrile. OBJECTIVE: VITAL SIGNS: Temperature 97.2, pulse 94, blood pressure 115/89, respirations 22, satting 97% on nasal cannula at rest. I's and O's show a negative balance of 622 with 1003 in, 1625 out. Weight is 50.2 kg. CHEST: Lungs are somewhat improved today with very faint rhonchi heard on the bilateral bases with the patient showing no obvious distress. HEART: Slightly irregular rate and rhythm with a controlled ventricular rate as noted on the bedside monitor. ABDOMEN: Soft, non-tender. Positive bowel sounds. EXTREMITIES: No cyanosis, clubbing or edema. NEUROLOGIC: She is alert and oriented times three. LABORATORY: White count is down to 11,600, hemoglobin 14.3, hematocrit 41.0, platelet count 329,000. Differential continues to show a left shift. Chemistries show a persistent hyponatremia although improved at 131 with potassium 3.8. Carbon dioxide was elevated at 33 with BUN 21, creatinine 0.58 with serum osmolality 267, calcium 8.5, magnesium 1.9. MICROBIOLOGY: Final sputum culture showed Pseudomonas aeruginosa with it being sensitive to Cefepime, but resistant to Penicillins, Cefazolin, Ceftriaxone and sensitive to Levaquin, Cipro, Gentamicin and Imipenem and resistant to Tetracycline and Bactrim. Please see that report for full details. RADIOLOGY: Repeat chest x-ray today per radiology interpretation showed superior retraction of the right hilum with right apical pleural-parenchymal opacity compatible with postsurgical/postinflammatory fibrosis pleural thickening. There is no acute infiltrate, pulmonary edema or large effusion. ASSESSMENT: 1. Electrolyte imbalance with a persistent hyponatremia showing improvement with the patient being chronically hyponatremic on multiple medications showing improvement with fluid restrictions and loop diuretics. 2. Chronic atrial fibrillation initially presenting with a rapid ventricular response controlled with Cardizem and on chronic Eliquis showing continued controlled ventricular rhythm. 3. Exacerbation of chronic obstructive pulmonary disease with concerns for pneumonia versus bronchitis having failed to respond to outpatient treatment measures with flu being negative and showing a culture of the sputum with a Pseudomonas aeruginosa with the patient showing good improvement with current antibiotic therapy with Cefepime. 4. Congestive heart failure acute on chronic, uncertain etiology with no current echocardiogram available for review showing good response to loop diuretics and fluid restrictions. 5. Peripheral vascular disease with some peripheral neuropathy. 6. Hyperlipidemia. 7. Hypertension, stable. 8. Osteoporosis and osteoarthritis. 9. History of lung cancer with a previous lung resection of the right lobe in 1998. 10. History of migraine headaches. PLAN: Will continue with aggressive pulmonary hygiene and current antibiotic therapy with Cefepime. She has been started on Align. She now is on p.o. Lasix 40 with consideration to having to increase her home Lasix at discharge. Will plan to repeat labs in the morning as well as chest x-ray. Until then, continue to monitor and treat appropriately. #[id number] [facility]
[2017-07-30] MEDS: ATORVASTATIN 10 MG TAB PO SCH (20:35)
[2017-07-30] MEDS: traMADol HCL 50 MG TAB PO PRN (20:35)
[2017-07-30] MEDS: IV SET AND CAP CHANGE INJ INJ SCH (20:44)
[2017-07-31] MEDS: POTASSIUM CHLORIDE 20 MEQ TAB PO SCH (07:58)
[2017-07-31] MEDS: METOPROLOL TARTRATE 50 MG TAB PO SCH (07:58)
[2017-07-31] MEDS: LEVALBUTEROL NEBS 1.25 MG/3 ML VIAL NEB SCH (08:40)
[2017-07-31] MEDS: NON-FORMULARY MEDICATION 1 EA MIS (Umeclidinium-Vilanterol [Anoro Ellipta 62.5-25 Mcg/Inh] INH SCH (08:40)
[2017-07-31] MEDS ORDERED: SODIUM CHL 0.9% 50ML MIN-BAG+ 50 ML IVPB ONE (08:44)
[2017-07-31] MEDS ORDERED: CEFEPIME 2 GM VIAL IVPB ONE (08:45)
[2017-07-31] MEDS: APIXABAN 2.5 MG TAB PO SCH (09:41)
[2017-07-31] MEDS: FISH OIL 1,200 MG CAP PO SCH (09:41)
[2017-07-31] MEDS: BIFIDOBACTERIUM INFANTIS 4 MG CAP PO SCH (09:41)
[2017-07-31] MEDS: CALCIUM CARBONATE-VITAMIN D 500 MG TAB PO SCH (09:41)
[2017-07-31] MEDS: FLECAINIDE 50 MG TAB PO SCH (09:41)
[2017-07-31] MEDS: ESTRADIOL TAB 1 MG PO SCH (09:41)
[2017-07-31] MEDS: guaiFENesin ER TAB 600 MG TAB PO SCH (09:42)
[2017-07-31] MEDS: MULTIPLE VITAMIN 1 EA TAB PO SCH (09:42)
[2017-07-31] MEDS: NON-FORMULARY MEDICATION 1 EA MIS (Fexofenadine Hcl [Allegra Allergy] 180 MG) PO SCH (09:43)
[2017-07-31] MEDS: OPHTHALMIC SALT SOLUTION 120 ML BTTL BOTH_EYES SCH (09:43)
[2017-07-31] MEDS: FLUTICASONE PROP 0.05% NASAL 16 GM BTTL BNAS SCH (09:44)
[2017-07-31] MEDS: SODIUM CHLORIDE 0.9% (FLUSH) 10 ML SYG IV SCH (09:45)
[2017-07-31] MEDS: FUROSEMIDE 40 MG TAB PO SCH (10:06)
[2017-07-31] MEDS: CEFEPIME 2 GM in SODIUM CHL 0.9% 50ML MIN-BAG+ 50 ML IVPB SCH (10:07)
[2017-07-31] MEDS ORDERED: levoFLOXacin 500 MG TAB PO ONE (10:32)
[2017-07-31 11:49] VITALS: BP 91/58; TEMP 97.7; O2SAT 99
--- NOTE | 2017-08-01 10:41 | DS ---
SUPERVISING PHYSICIAN: Naman Vazquez MD DISCHARGE DIAGNOSIS: 1. Chronic hyponatremia, improving on Acute Care with fluid restriction and loop diuretics, felt to be secondary to multiple medications and chronic lung disease 2. Chronic atrial fibrillation, showing a controlled ventricular rate on admission to Swing Bed on chronic Eliquis, requiring initially on admission Cardizem for ventricular control. 3. Exacerbation of chronic obstructive pulmonary disease with concerns for pneumonia with sputum cultures growing Pseudomonas aeruginosa with the patient having some bronchitis, initially failing to respond to outpatient treatment, having been negative for flu, showing good response to treatment on Acute Care with cefepime, transitioned to oral antibiotics to include Levaquin prior to admission to Swing Bed, requiring admission to Swing Bed for significant deconditioning and weakness. 4. Congestive heart failure acute on chronic, uncertain etiology with no current echocardiogram available at time of admission, but showing good response to loop diuretics and fluid restrictions, but continuing to deconditioning and weakness requiring admission to Swing Bed. 5. Peripheral vascular disease with some peripheral neuropathy. 6. Hyperlipidemia. 7. Hypertension, stable. 8. Osteoporosis and osteoarthritis. 9. History of lung cancer with a previous lung resection of the right upper lobe in 1998. 10. History of migraine headaches. REASON FOR HOSPITALIZATION: Ms. Martínez is an 87-year-old female patient who presented to the Emergency Department from [facility] on 07/27/17 and admitted to Acute Care. It was noted she had been having shortness of breath over several weeks prior to admission and started around July 05. She had been seen previously by her primary care physician and had been placed on antibiotics at some point but had not had any significant improvement. She does have a history of chronic obstructive pulmonary disease and uses oxygen at night. She was recently tested for the flu in the week previous and was reported as negative. Laboratory studies initially in the Emergency Department showed that she had a normal white count of 10,400 but had a left shift. Chemistries were significant for hyponatremia with a sodium of 121 with a serum osmolality of 248. Liver functions were slightly elevated including AST, ALT and alkaline phosphatase. Initial troponin was within normal limits at 0.02, but her BNP was elevated at 607. Vital signs initially on Acute Care showed she was in atrial fibrillation with a rapid ventricular rate of 148 with temperature of 97.8, blood pressure 147/76, saturation 98% on room air with respirations of 20. She has a history of chronic atrial fibrillation and on Eliquis. EKG showed atrial fibrillation with a rapid ventricular response. She was then given a dose of Cardizem which did convert her to a slower rhythm with a controlled ventricular rate. X-ray completed in the Emergency Room showed there was some mild pulmonary vascular congestion without any pulmonary edema as noted on single portable chest. In addition to the Cardizem, she was given a dose of Lasix 40 mg as well as started on a DuoNeb treatment and some Solu-Medrol. She was then admitted to the medical/ surgical floor for exacerbation of chronic obstructive pulmonary disease having failed outpatient management along with exacerbation of congestive heart failure with atrial fibrillation that showed a rapid ventricular rate requiring control with Cardizem. She was admitted in stable condition. She was treated with antibiotics, Lasix and fluid restrictions and showed good clinical response. However, again, with physical therapy consultation, it was noted she was significantly deconditioned and weak from her previous baseline. It was recommended by physical therapy that the patient be admitted to Swing Bed. She was discharged from Acute Care after stabilizing clinically and admitted to Swing Bed. LABORATORY: While on Acute Care, initial white count was 10,400. It did go up to maximum of 13,900, but prior to discharge was down to 3,000. Hemoglobin 15, hematocrit 43.7 which was stable at discharge. Platelet count 317,000. Initial differential did show a left shift. However, this resolved prior to admission to Swing Bed. Chemistries showed a persistent hyponatremia with initial sodium of 121. After treatment with fluid restrictions and diuretics, her sodium was 132. BUN 15, creatinine 0.44. Initial serum osmolality was 248 and at discharge was 268. Calcium normal at 8.7. She did have some elevated liver enzymes with total bilirubin 1.6, AST 66, alkaline phosphatase 153, ALT 95 , which they showed good response with treatment and returning to baseline status prior to discharge. Her BNP was 607 and troponin 0.02. Urinalysis was within normal limits. Dig level less than 0.3. MICROBIOLOGY: Sputum culture, final results showed Pseudomonas aeruginosa that was fairly resistant, but sensitive to cefepime and Levaquin. Please see that final result for full details. RADIOLOGY: Initial chest x-ray in the Emergency Room per radiologic interpretation showed mild pulmonary vascular congestion observed without pulmonary edema. She had multiple chest x-rays and the last x-ray on 07/30/17 per radiologic interpretation showed no acute infiltrate, pulmonary edema or large effusion. Her EKG on admission showed atrial fibrillation with rapid ventricular response. HOSPITAL COURSE: Ms. Janice Martínez was admitted as noted above on 07/27/17 for both underlying congestive heart failure and chronic obstructive pulmonary disease exacerbations. She was started on antibiotics to include Rocephin. After sputum culture showed she had Pseudomonas growth, she was transitioned to cefepime. She responded well to her antibiotic therapy and her leukocytosis resolved. For the congestive heart failure, she was treated with Lasix 40 mg b.i.d. as well as fluid restrictions. She showed good results with diuresis and was improved in regard to her respiratory status as well as radiographically. She had progressed clinically well and was felt to be clinically stable to be discharged, however, physical therapy assessment indicated that she was significantly weak and not safe to go home. Therefore, plans were made for her to be discharged to Swing Bed. PLAN: The patient will be discharged from Acute Care on 07/31/17 and admitted to Swing Bed on the same day for continued physical therapy for significant deconditioning and rehabilitation secondary to underlying exacerbation of congestive heart failure and chronic obstructive pulmonary disease. She was in stable condition at time of discharge. #[id number] [facility]
== END 2017-07-31 12:08 | disposition swing bed (61) | DRG 190 ==
LOC: ER 16:07 → OBSVTOIN 20:52 → MS 20:52
PROVIDERS: ADMIT Nurse Practitioner Family; ATTEND Nurse Practitioner Family
DX: J44.1 Chronic obstructive pulmonary disease with (acute) exacerbation (principal); J18.9 Pneumonia, unspecified organism; E87.1 Hypo-osmolality and hyponatremia; J20.9 Acute bronchitis, unspecified; B96.5 Pseudomonas (aeruginosa) (mallei) (pseudomallei) as the cause of diseases classified elsewhere; Z16.24 Resistance to multiple antibiotics; J44.0 Chronic obstructive pulmonary disease with (acute) lower respiratory infection; I48.2 Chronic atrial fibrillation; I50.9 Heart failure, unspecified; I73.9 Peripheral vascular disease, unspecified; G62.9 Polyneuropathy, unspecified; E78.5 Hyperlipidemia, unspecified; I11.0 Hypertensive heart disease with heart failure; M19.90 Unspecified osteoarthritis, unspecified site; M81.0 Age-related osteoporosis without current pathological fracture; Z85.118 Personal history of other malignant neoplasm of bronchus and lung; Z90.2 Acquired absence of lung [part of]; Z88.2 Allergy status to sulfonamides; Z88.6 Allergy status to analgesic agent; Z88.5 Allergy status to narcotic agent; Z88.8 Allergy status to other drugs, medicaments and biological substances; Z79.899 Other long term (current) drug therapy

== ENCOUNTER 2017-07-31 12:10 | Inpatient (IN) | payer MEDICARE, OTHER ==
[2017-07-31] MEDS ORDERED: LEVALBUTEROL NEBS 1.25 MG/3 ML VIAL INH PRN (13:09)
[2017-07-31] MEDS ORDERED: SODIUM PHOS/BIPHOS ENEMA ADULT 133 ML BTTL PR PRN (13:09)
[2017-07-31] MEDS ORDERED: MAGNESIUM HYDROXIDE 30 ML UD PO PRN (13:09)
[2017-07-31] MEDS ORDERED: ACETAMINOPHEN 500 MG TAB PO PRN (13:09)
--- NOTE | 2017-07-31 13:19 | PCM.CORE ---
Physician DVT/VTE - Prophylaxis Currently: Patient already on anticoagulation therapy - connie - Nurse DVT Assessment & Total Each Risk Factor Represents 3 Points: Age over 75 years, Medical PT with Hx of MS, CHF, Severe infection/sepsis Each Risk Factor is 1 Point: Serious Lung disease (pnemonia <1month, COPD, emphysema,etc) DVT Assessment Score: 7 - 5 or more Very High Risk Treatments: Early Ambulation *, Sequential Compression Device
[2017-07-31] MEDS: LEVALBUTEROL NEBS 1.25 MG/3 ML VIAL INH SCH (17:29)
[2017-07-31] MEDS ORDERED: traMADol HCL 50 MG TAB PO PRN (20:24)
[2017-07-31] MEDS: guaiFENesin ER TAB 600 MG TAB PO SCH (20:55)
[2017-07-31] MEDS: APIXABAN 2.5 MG TAB PO SCH (20:55)
[2017-07-31] MEDS: FLECAINIDE 50 MG TAB PO SCH (20:55)
[2017-07-31] MEDS: BIFIDOBACTERIUM INFANTIS 4 MG CAP PO SCH (20:57)
--- NOTE | 2017-07-31 21:16 | HP ---
SUPERVISING PHYSICIAN: Naman Vazquez M.D. HISTORY OF PRESENT ILLNESS: Ms. Martínez is an 87 year-old female patient that was initially brought to the Emergency Room from [facility] on 07/27/17. She noted that she had been having some shortness of breath over several weeks which started around July 05. She had previously been seen by her primary care physician and had been placed on antibiotics at some point, but had not had any significant improvement. She has a significant history of obstructive pulmonary disease and uses oxygen at night. She had recently been tested for the flu a week previous which was reported negative. Her lab studies in the Emergency Room showed that she was with a normal white count of 10,400 but had a left shift. Her chemistries were noted to be significant for hyponatremia with sodium 121 and serum osmolality of 248. Liver functions were slightly elevated, including AST, ALT and alkaline phosphatase. Initial troponins showed to be within normal limits at 0.02 with an elevated BNP at 607. Initial vital signs showed that she was in atrial fibrillation with a rapid ventricular rate at 148 with temperature of 97.8, blood pressure 147/76, satting 98% on room air with respirations 20. She does have a history of chronic atrial fibrillation and has been on Eliquis. Her EKG again showed atrial fibrillation with rapid ventricular response. At that point, she was given Cardizem and did convert to a slower rhythm with controlled ventricular rate. Her x-ray completed in the Emergency Department showed that she had some mild pulmonary vascular congestion without any pulmonary edema as noted above on single portable chest. In addition to Cardizem, she had a dose of Lasix 40 mg, DuoNeb treatments and Solu-Medrol. She was then admitted to the Medical/Surgical floor for an exacerbation of COPD having failed outpatient management along with exacerbation of congestive heart failure with an elevated BNP with atrial fibrillation showing rapid ventricular response requiring rate control with Cardizem. She was admitted in stable condition. She was treated with antibiotics, Lasix and fluid restrictions and showed good clinical response, however after Physical Therapy consultation it was noted that she was significantly weak and deconditioned, and was not at her baseline status. It was recommended per Physical Therapy that the patient be admitted to Swing Bed for at least 3 to 4 days of physical therapy to assist in returning the patient home to a safe condition. PAST MEDICAL HISTORY: 1. Chronic obstructive pulmonary disease. 2. Peripheral vascular disease. 3. Chronic hyponatremia. 4. Chronic history of recurrent atrial fibrillation on rate control medications as well as anticoagulation with [facility] currently being followed by Dr. Salvador, her lot technician . 5. Hypertension. 6. Osteoporosis. 7. History of lung cancer in the past with lung resection of the right lobe in 1998. 8. History of migraine headaches and having been associated with neurological symptoms in the past with some paresthesias. PAST SURGICAL HISTORY: 1. Appendectomy in 1947. 2. Hysterectomy in 1977 with bilateral salpingo-oophorectomy. 3. Lung resection in 1998 of the right upper lobe. 4. Bladder suspension. 5. Cataract removal bilaterally in 2014. CURRENT MEDICATIONS: Please see the electronic medical records for an updated list of medications. ALLERGIES: SULFA ANTIBIOTICS, LORAZEPAM, ASPIRIN, CELEBREX, MORPHINE, ADVAIR DISKUS AND MACROBID. FAMILY HISTORY: Father and mother are both , father at age 90 from advanced age, mother at 90 years of age as well from ovarian cancer. She also has a brother who is healthy and has 5 children, 3 and 1 stillborn girl. SOCIAL HISTORY: The patient is . 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 She does have a history of tobacco abuse but quit in 1998. She denies any recent alcohol or illicit drug use. PHYSICAL EXAMINATION: VITAL SIGNS: Temperature 97.8, pulse 80, blood pressure 101/58, respirations 18 , satting 99% on nasal cannula at 1 liter and 96% on room air. Admission weight is 49.8 kg. GENERAL: The patient on admission to [facility] Bed was without any acute distress. Well nourished, well hydrated. Clinically stable but showing significant deconditioning and weakness. HEENT: Tympanic membranes are clear bilaterally. Oropharynx was pink and moist without any lesions. NECK: There is no jugular venous distention. CHEST: Lungs were clear to auscultation, just diminished towards the bases bilaterally. CARDIOVASCULAR: Slightly irregular rate and rhythm but with a controlled ventricular rate as noted on bedside monitor prior to discharge from Acute Care. ABDOMEN: Soft, non-tender. Positive bowel sounds. EXTREMITIES: No cyanosis, clubbing or edema. NEUROLOGIC: She was alert and oriented times three. LABORATORY: No additional laboratory studies were pending at time of admission. MICROBIOLOGY: She had a sputum culture on Acute Care that showed Pseudomonas aeruginosa that was sensitive to Cefepime but resistant to Penicillin and cephalosporins, also showing sensitive to Levaquin, Cipro, Gentamicin and Imipenem. RADIOLOGY: No additional radiographic studies on admission. ASSESSMENT: 1. Chronic hyponatremia showing improvement on Acute Care after fluid restrictions and loop diuretics felt to be secondary to multiple medications and chronic lung disease. 2. Chronic atrial fibrillation showing controlled ventricular rate on admission to Swing Bed on chronic Eliquis. 3. Exacerbation of chronic obstructive pulmonary disease with concerns for pneumonia with sputum culture growing Pseudomonas aeruginosa with the patient having some bronchitis initially failing to respond initially to outpatient treatment being negative for flu showing good response to treatment on Acute Care with Cefepime transitioning to oral antibiotics to include Levaquin on admission to Swing Bed, but continuing to show significant deconditioning and weakness, therefore requiring admission to Swing Bed for reconditioning. 4. Congestive heart failure acute on chronic with uncertain etiology with no current echocardiogram available at time of admission but showing good response to loop diuretics and fluid restrictions, but showing continued deconditioning and weakness requiring admission to Swing Bed. 5. Peripheral vascular disease with some peripheral neuropathies. 6. Hyperlipidemia. 7. Hypertension, stable. 8. Osteoarthritis and osteoporosis. 9. History of lung cancer with previous lung resection of the right upper lobe in 1998. 10. History of migraine headaches. PLAN: The patient showed good response to treatment on Acute Care but continues to show significant weakness and deconditioning. After evaluation with Physical Therapy prior to discharge, it was recommended that the patient would benefit from admission to Swing Bed to ensure that once discharged she was safe and decreased risk for falls, and was able to function more at her baseline status. The patient is now going to be admitted to Swing Bed for conditioning, rehabilitation and physical therapy. Physical Therapy consultation with be secured. She will be started on home medications once those have been updated and re-verified. She is already on Eliquis. She will be continued on SCDs and ambulation. Will continue with antibiotic therapy to include Levaquin 250 mg daily for 14 days. She was given a 500 mg loading dose before admission to Swing Bed. Will continue to monitor the patient closely and hold off on any current laboratories as the patient was showing to be stable. Will anticipate length of stay to be at least 3 to 5 days. Once able to be discharged, she will need close clinical followup with her primary care provider, Dr. Brown. Again, she will be continued on antibiotic therapy along with some pulmonary hygiene. Until discharge, will continue to monitor and treat appropriately. #[id number] [facility]
[2017-08-01] MEDS: LEVALBUTEROL NEBS 1.25 MG/3 ML VIAL INH SCH ×3 (08:35→18:00)
[2017-08-01] MEDS: NON-FORMULARY MEDICATION 1 EA MIS (Umeclidinium-Vilanterol [Anoro Ellipta 62.5-25 Mcg/Inh] INH SCH (08:52)
[2017-08-01] MEDS ORDERED: FISH OIL 1,200 MG CAP PO SCH (09:00)
[2017-08-01] MEDS ORDERED: traMADol HCL 50 MG TAB PO PRN (09:00)
[2017-08-01] MEDS ORDERED: NON-FORMULARY MEDICATION 1 EA MIS (Fexofenadine Hcl [Allegra Allergy] 180 MG) PO SCH (09:00)
[2017-08-01] MEDS ORDERED: NON-FORMULARY MEDICATION 1 EA MIS (Umeclidinium-Vilanterol [Anoro Ellipta 62.5-25 Mcg/Inh] INH SCH (09:00)
[2017-08-01] MEDS: levoFLOXacin 500 MG TAB PO SCH (09:47)
[2017-08-01] MEDS: APIXABAN 2.5 MG TAB PO SCH ×2 (09:47→21:50)
[2017-08-01] MEDS: DOCUSATE SODIUM 100 MG CAP PO SCH (09:47)
[2017-08-01] MEDS: FUROSEMIDE 40 MG TAB PO SCH (09:48)
[2017-08-01] MEDS: ATORVASTATIN 10 MG TAB PO SCH (09:48)
[2017-08-01] MEDS: BIFIDOBACTERIUM INFANTIS 4 MG CAP PO SCH ×2 (09:49→21:50)
[2017-08-01] MEDS: ESTRADIOL TAB 1 MG PO SCH (09:50)
[2017-08-01] MEDS: CALCIUM CARBONATE-VITAMIN D 500 MG TAB PO SCH (09:51)
[2017-08-01] MEDS: FLECAINIDE 50 MG TAB PO SCH ×2 (09:51→21:50)
[2017-08-01] MEDS: guaiFENesin ER TAB 600 MG TAB PO SCH ×2 (09:51→21:50)
[2017-08-01] MEDS: METOPROLOL SUCCINATE XL 25 MG TAB PO SCH (10:13)
[2017-08-01] MEDS: MULTIPLE VITAMIN 1 EA TAB PO SCH (10:13)
[2017-08-02] MEDS: LEVALBUTEROL NEBS 1.25 MG/3 ML VIAL INH SCH ×3 (00:22→18:30)
[2017-08-02] MEDS: NON-FORMULARY MEDICATION 1 EA MIS (Umeclidinium-Vilanterol [Anoro Ellipta 62.5-25 Mcg/Inh] INH SCH (08:59)
[2017-08-02] MEDS: FISH OIL 1,200 MG CAP PO SCH (09:04)
[2017-08-02] MEDS: LORATADINE 10 MG TAB PO SCH (09:05)
[2017-08-02] MEDS: BIFIDOBACTERIUM INFANTIS 4 MG CAP PO SCH ×2 (09:05→20:53)
[2017-08-02] MEDS: ATORVASTATIN 10 MG TAB PO SCH (09:05)
[2017-08-02] MEDS: DOCUSATE SODIUM 100 MG CAP PO SCH (09:05)
[2017-08-02] MEDS: MULTIPLE VITAMIN 1 EA TAB PO SCH (09:05)
[2017-08-02] MEDS: ESTRADIOL TAB 1 MG PO SCH (09:05)
[2017-08-02] MEDS: CALCIUM CARBONATE-VITAMIN D 500 MG TAB PO SCH (09:06)
[2017-08-02] MEDS: levoFLOXacin 500 MG TAB PO SCH (09:06)
[2017-08-02] MEDS: FUROSEMIDE 40 MG TAB PO SCH (09:06)
[2017-08-02] MEDS: METOPROLOL SUCCINATE XL 25 MG TAB PO SCH (09:06)
[2017-08-02] MEDS: guaiFENesin ER TAB 600 MG TAB PO SCH ×2 (09:06→20:52)
[2017-08-02] MEDS: APIXABAN 2.5 MG TAB PO SCH ×2 (09:06→20:53)
[2017-08-02] MEDS: FLECAINIDE 50 MG TAB PO SCH ×2 (10:06→20:53)
[2017-08-02] MEDS: traMADol HCL 50 MG TAB PO PRN (20:53)
[2017-08-03] MEDS: LEVALBUTEROL NEBS 1.25 MG/3 ML VIAL INH SCH ×4 (00:30→22:48)
[2017-08-03] MEDS: NON-FORMULARY MEDICATION 1 EA MIS (Umeclidinium-Vilanterol [Anoro Ellipta 62.5-25 Mcg/Inh] INH SCH (09:15)
[2017-08-03] MEDS: FLECAINIDE 50 MG TAB PO SCH ×2 (09:44→20:33)
[2017-08-03] MEDS: guaiFENesin ER TAB 600 MG TAB PO SCH ×2 (09:44→20:34)
[2017-08-03] MEDS: LORATADINE 10 MG TAB PO SCH (09:44)
[2017-08-03] MEDS: METOPROLOL SUCCINATE XL 25 MG TAB PO SCH (09:44)
[2017-08-03] MEDS: BIFIDOBACTERIUM INFANTIS 4 MG CAP PO SCH ×2 (09:44→20:34)
[2017-08-03] MEDS: CALCIUM CARBONATE-VITAMIN D 500 MG TAB PO SCH (09:45)
[2017-08-03] MEDS: FISH OIL 1,200 MG CAP PO SCH (09:45)
[2017-08-03] MEDS: FUROSEMIDE 40 MG TAB PO SCH (09:45)
[2017-08-03] MEDS: MULTIPLE VITAMIN 1 EA TAB PO SCH (09:45)
[2017-08-03] MEDS: ATORVASTATIN 10 MG TAB PO SCH (09:45)
[2017-08-03] MEDS: ESTRADIOL TAB 1 MG PO SCH (09:45)
[2017-08-03] MEDS: DOCUSATE SODIUM 100 MG CAP PO SCH (09:45)
[2017-08-03] MEDS: levoFLOXacin 500 MG TAB PO SCH (09:45)
[2017-08-03] MEDS: APIXABAN 2.5 MG TAB PO SCH ×2 (09:45→20:35)
--- NOTE | 2017-08-03 11:37 | PN ---
SUPERVISING PHYSICIAN: Naman Vazquez MD DATE: 08/03/17 SUBJECTIVE: The patient is sitting in her hospital bed. She has no complaints of chest pain, nausea, vomiting, diarrhea or constipation. She does get occasionally short of breath with exertion and she continues to feel very weak. She is concerned about going home at this time as well as her son is also concerned with her going home due to safety issues. OBJECTIVE: VITAL SIGNS: Afebrile. Heart rate 84. Blood pressure 139/74. Respiratory rate 18. O2 saturation 94% on room air. LUNGS: Diminished breath sounds throughout. A few fine, scattered crackles. CARDIAC: Regular rate and irregular rhythm. GASTROINTESTINAL: Abdomen is soft, nondistended, nontender. Bowel sounds are positive. EXTREMITIES: No cyanosis, clubbing or edema. NEUROLOGIC: Awake, alert and oriented times three. LABORATORY: There are no labs and films to report at this time. ASSESSMENT: 1. Chronic hyponatremia showing improvement on Acute Care after fluid restrictions and loop diuretics felt to be secondary to multiple medications and chronic lung disease. 2. Chronic atrial fibrillation showing controlled ventricular rate on admission to Swing Bed on chronic Eliquis. 3. Exacerbation of chronic obstructive pulmonary disease with concerns for pneumonia with sputum culture growing Pseudomonas aeruginosa with the patient having some bronchitis initially failing to respond initially to outpatient treatment being negative for flu showing good response to treatment on Acute Care with cefepime transitioning to oral antibiotics to include Levaquin on admission to Swing Bed, but continuing to show significant deconditioning and weakness, therefore requiring admission to Swing Bed for reconditioning. 4. Congestive heart failure acute on chronic with uncertain etiology with no current echocardiogram available at time of admission but showing good response to loop diuretics and fluid restrictions, but showing continued deconditioning and weakness requiring admission to Swing Bed. 5. Peripheral vascular disease with some peripheral neuropathies. 6. Hyperlipidemia. 7. Hypertension, stable. 8. Osteoarthritis and osteoporosis. 9. History of lung cancer with previous lung resection of the right upper lobe in 1998. 10. History of migraine headaches. PLAN: We will continue present supportive care. She will continue strengthening and conditioning with physical therapy. The plan is to discharge her to [place] on Sunday if she continues to progress well with her physical therapy. Otherwise, we will continue to monitor the patient closely and follow as needed. Dr. Vazquez is the collaborating physician and available for consultation. #[id number] [facility]
[2017-08-03] MEDS: traMADol HCL 50 MG TAB PO PRN (20:37)
[2017-08-04] MEDS: LEVALBUTEROL NEBS 1.25 MG/3 ML VIAL INH SCH ×2 (08:26→18:33)
[2017-08-04] MEDS: NON-FORMULARY MEDICATION 1 EA MIS (Umeclidinium-Vilanterol [Anoro Ellipta 62.5-25 Mcg/Inh] INH SCH (08:26)
[2017-08-04] MEDS: LORATADINE 10 MG TAB PO SCH (08:43)
[2017-08-04] MEDS: ESTRADIOL TAB 1 MG PO SCH (08:43)
[2017-08-04] MEDS: levoFLOXacin 500 MG TAB PO SCH (08:44)
[2017-08-04] MEDS: CALCIUM CARBONATE-VITAMIN D 500 MG TAB PO SCH (08:44)
[2017-08-04] MEDS: guaiFENesin ER TAB 600 MG TAB PO SCH ×2 (08:44→20:30)
[2017-08-04] MEDS: FLECAINIDE 50 MG TAB PO SCH ×2 (08:44→20:30)
[2017-08-04] MEDS: FUROSEMIDE 40 MG TAB PO SCH (08:44)
[2017-08-04] MEDS: MULTIPLE VITAMIN 1 EA TAB PO SCH (08:44)
[2017-08-04] MEDS: DOCUSATE SODIUM 100 MG CAP PO SCH (08:44)
[2017-08-04] MEDS: APIXABAN 2.5 MG TAB PO SCH ×2 (08:44→20:30)
[2017-08-04] MEDS: BIFIDOBACTERIUM INFANTIS 4 MG CAP PO SCH ×2 (08:45→20:30)
[2017-08-04] MEDS: FISH OIL 1,200 MG CAP PO SCH (08:45)
[2017-08-04] MEDS: ATORVASTATIN 10 MG TAB PO SCH (08:45)
[2017-08-04] MEDS: METOPROLOL SUCCINATE XL 25 MG TAB PO SCH (08:45)
[2017-08-04] MEDS: traMADol HCL 50 MG TAB PO PRN (20:34)
[2017-08-05] MEDS: LORATADINE 10 MG TAB PO SCH (09:01)
[2017-08-05] MEDS: guaiFENesin ER TAB 600 MG TAB PO SCH ×2 (09:02→21:04)
[2017-08-05] MEDS: FUROSEMIDE 40 MG TAB PO SCH (09:02)
[2017-08-05] MEDS: DOCUSATE SODIUM 100 MG CAP PO SCH (09:02)
[2017-08-05] MEDS: levoFLOXacin 500 MG TAB PO SCH (09:03)
[2017-08-05] MEDS: FISH OIL 1,200 MG CAP PO SCH (09:04)
[2017-08-05] MEDS: ESTRADIOL TAB 1 MG PO SCH (09:04)
[2017-08-05] MEDS: BIFIDOBACTERIUM INFANTIS 4 MG CAP PO SCH ×2 (09:04→21:04)
[2017-08-05] MEDS: NON-FORMULARY MEDICATION 1 EA MIS (Umeclidinium-Vilanterol [Anoro Ellipta 62.5-25 Mcg/Inh] INH SCH (09:05)
[2017-08-05] MEDS: FLECAINIDE 50 MG TAB PO SCH ×2 (09:05→21:04)
[2017-08-05] MEDS: ATORVASTATIN 10 MG TAB PO SCH (09:06)
[2017-08-05] MEDS: APIXABAN 2.5 MG TAB PO SCH ×2 (09:06→21:04)
[2017-08-05] MEDS: METOPROLOL SUCCINATE XL 25 MG TAB PO SCH (09:06)
[2017-08-05] MEDS: CALCIUM CARBONATE-VITAMIN D 500 MG TAB PO SCH (09:06)
[2017-08-05] MEDS: MULTIPLE VITAMIN 1 EA TAB PO SCH (09:06)
[2017-08-05] MEDS: LEVALBUTEROL NEBS 1.25 MG/3 ML VIAL INH SCH ×3 (11:15→15:35)
[2017-08-05] MEDS: traMADol HCL 50 MG TAB PO PRN (21:08)
[2017-08-06] MEDS: LEVALBUTEROL NEBS 1.25 MG/3 ML VIAL INH SCH ×2 (00:32→11:33)
[2017-08-06] MEDS: BIFIDOBACTERIUM INFANTIS 4 MG CAP PO SCH (08:20)
[2017-08-06] MEDS: LORATADINE 10 MG TAB PO SCH (08:20)
[2017-08-06] MEDS: FUROSEMIDE 40 MG TAB PO SCH (08:20)
[2017-08-06] MEDS: levoFLOXacin 500 MG TAB PO SCH (08:21)
[2017-08-06] MEDS: METOPROLOL SUCCINATE XL 25 MG TAB PO SCH (08:21)
[2017-08-06] MEDS: ATORVASTATIN 10 MG TAB PO SCH (08:21)
[2017-08-06] MEDS: guaiFENesin ER TAB 600 MG TAB PO SCH (08:21)
[2017-08-06] MEDS: APIXABAN 2.5 MG TAB PO SCH (08:22)
[2017-08-06] MEDS: DOCUSATE SODIUM 100 MG CAP PO SCH (08:22)
[2017-08-06] MEDS: FLECAINIDE 50 MG TAB PO SCH (08:22)
[2017-08-06] MEDS: MULTIPLE VITAMIN 1 EA TAB PO SCH (08:22)
[2017-08-06] MEDS: CALCIUM CARBONATE-VITAMIN D 500 MG TAB PO SCH (08:23)
[2017-08-06] MEDS: ESTRADIOL TAB 1 MG PO SCH (08:23)
[2017-08-06] MEDS: FISH OIL 1,200 MG CAP PO SCH (08:27)
[2017-08-06] MEDS: NON-FORMULARY MEDICATION 1 EA MIS (Umeclidinium-Vilanterol [Anoro Ellipta 62.5-25 Mcg/Inh] INH SCH (09:07)
[2017-08-06 10:21] VITALS: BP 112/78; TEMP 97.9; O2SAT 95
--- NOTE | 2017-08-07 08:40 | DS ---
SUPERVISING PHYSICIAN: Bora Brown MD DISCHARGE DIAGNOSIS: 1. Chronic atrial fibrillation with a controlled ventricular rate on Eliquis. 2. Chronic hyponatremia on Acute Care showing improvement with fluid restrictions and diuretics, felt to be secondary to multiple medications and chronic lung disease. 3. Exacerbation of chronic obstructive pulmonary disease with concerns for pneumonia with sputum culture growing Pseudomonas aeruginosa with the patient having some bronchitis having failed to respond to outpatient treatment previously being negative for flu having been admitted to Acute Care and treated with cefepime and transitioned to Levaquin and admitted to Swing Bed for ongoing strengthening and conditioning with the patient continuing to show improvement. 4. Congestive heart failure, acute on chronic, with uncertain etiology with no current echocardiogram available at time of admission, but showing good response to loop diuretics and fluid restrictions and needing some physical therapy for deconditioning and weakness, showing improvement and stable. 5. Peripheral vascular disease with some peripheral neuropathies. 6. Hyperlipidemia. 7. Hypertension, stable. 8. Osteoarthritis and osteoporosis. 9. History of lung cancer with previous lung resection of the right upper lobe in 1998. 10. History of migraine headaches. REASON FOR HOSPITALIZATION: Ms. Martínez is an 87-year-old female patient that was initially brought to the Emergency Room from [facility] on 07/27/17. She noted that she had been having some shortness of breath over several weeks which started around July 05. She had previously been seen by her primary care physician and had been placed on antibiotics at some point, but had not had any significant improvement. She has a significant history of obstructive pulmonary disease and uses oxygen at night. She had recently been tested for the flu a week previous which was reported negative. Her lab studies in the Emergency Room showed that she was with a normal white count of 10,400 but had a left shift. Liver functions were slightly elevated, including AST, ALT and alkaline phosphatase. Initial troponins showed to be within normal limits at 0.02 with an elevated BNP at 607. She was admitted to the Medical/Surgical Floor for treatment of atrial fibrillation as her EKG showed she was in rapid ventricular response. At some point, she was given Cardizem in the Emergency Room and converted to a slower rhythm with controlled ventricular rate. Her x-ray completed in the Emergency Department showed that she had some mild pulmonary vascular congestion without any pulmonary edema. In addition to Cardizem, she had a dose of Lasix 40 mg, DuoNeb treatments and Solu-Medrol. She was then admitted to the Medical/ Surgical floor for an exacerbation of chronic obstructive pulmonary disease having failed outpatient management along with exacerbation of congestive heart failure with an elevated BNP with atrial fibrillation showing rapid ventricular response requiring rate control with Cardizem. She was admitted in stable condition. She was treated with antibiotics, Lasix and fluid restrictions and showed good clinical response, however, she needed continued physical therapy as she was showing significant deconditioning and weakness from her baseline status. It was recommended per Physical Therapy that the patient be admitted to Swing Bed for at least 3 to 4 days of physical therapy to assist in returning the patient home to a safe condition. LABORATORY: There were no laboratory studies. RADIOLOGY: There were no radiographic studies on Swing Bed. HOSPITAL COURSE: Ms. Martínez was admitted to Swing Bed on 07/31/17 for severe deconditioning and weakness. She was able to perform her physical therapy exercises and progressed well and met her goals on 08/06/17. She was felt well enough and safe to be discharged home to continue with home health with [facility]. PLAN: Ms. Martínez was discharged to have close clinical followup with Dr. Brown on 08/13/17 at 9:45 AM. She was to have continued care and physical therapy and [facility] and resume her home medications as instructed. She was to take her new prescriptions as directed. She was told to return to the hospital should she have any concerning symptoms or call Dr. Brown's office. At discharge, she was to continue on antibiotics for treatment of underlying Pseudomonas that grew out of her sputum for a total of 14 days with Levaquin 250 mg for an additional 8 days to complete the course. All other medications prior to admission were continued as previous. Diet at discharge was regular diet as tolerated. She was to increase activity as tolerated. Condition at discharge was stable and improved. #[id number] [facility]
== END 2017-08-06 10:22 | disposition home health service (06) | DRG 947 ==
LOC: MS 12:10
PROVIDERS: ADMIT Nurse Practitioner Family; ATTEND Nurse Practitioner Family
DX: R53.1 Weakness (principal); J15.1 Pneumonia due to Pseudomonas; E87.1 Hypo-osmolality and hyponatremia; J44.0 Chronic obstructive pulmonary disease with (acute) lower respiratory infection; I48.2 Chronic atrial fibrillation; I11.0 Hypertensive heart disease with heart failure; I50.9 Heart failure, unspecified; G62.9 Polyneuropathy, unspecified; M81.0 Age-related osteoporosis without current pathological fracture; M19.90 Unspecified osteoarthritis, unspecified site; E78.5 Hyperlipidemia, unspecified; Z99.81 Dependence on supplemental oxygen; Z85.118 Personal history of other malignant neoplasm of bronchus and lung; Z79.01 Long term (current) use of anticoagulants; Z90.2 Acquired absence of lung [part of]; Z88.2 Allergy status to sulfonamides; Z88.6 Allergy status to analgesic agent; Z88.5 Allergy status to narcotic agent; Z88.1 Allergy status to other antibiotic agents; Z88.8 Allergy status to other drugs, medicaments and biological substances; Z87.891 Personal history of nicotine dependence

== ENCOUNTER → 2017-08-13 | Outpatient (CLI) | payer MEDICARE, OTHER | LOC: GMAM 14:35 | PROVIDERS: ATTEND Family Medicine | DX: I50.32 Chronic diastolic (congestive) heart failure (principal) ==

== ENCOUNTER → 2018-01-08 | Outpatient (CLI) | payer MEDICARE, OTHER | LOC: GMAJS 14:23 | PROVIDERS: ATTEND Physician Assistant | DX: N39.0 Urinary tract infection, site not specified (principal); Z91.81 History of falling ==

== ENCOUNTER 2018-03-08 13:25 | Emergency (ER) | payer MEDICARE, OTHER ==
[2018-03-08 14:06] VITALS: TEMP 97.6
--- NOTE | 2018-03-08 15:10 | CT ---
EXAM DESCRIPTION: Head CLINICAL HISTORY: 87 years, Female, fell and hit head-on anti-coagulant COMPARISON: February 22, 2017 TECHNIQUE: Head CT was performed without IV contrast. This exam was performed according to our departmental dose-optimization program, which includes automated exposure control, adjustment of the mA and/or kV according to patient size and/or use of iterative reconstruction technique. FINDINGS: There is no acute intracranial hemorrhage. No midline shift or other mass effect. The ventricles and basilar cisterns are well maintained. No posterior fossa lesion. Chronic ischemic changes are noted in the periventricular white matter without cortical infarct or intracranial mass. Visualized paranasal sinuses and orbits are unremarkable. Vascular calcifications are present. No calvarial fracture. IMPRESSION: Vascular calcifications and chronic ischemic changes, but no acute intracranial abnormality at this time. If symptoms persist or worsen, followup head CT in 24 hr or MRI is recommended. Electronically signed by: Jorge Luis Montana MD 03/08/2018 3:09 PM CDT
[2018-03-08] MEDS ORDERED: LIDOCAINE 2 % GEL 5 ML TUBE TOP ONE (15:28)
--- NOTE | 2018-03-08 15:39 | ED.PDOC ---
History of Present Illness - General Chief Complaint: Head Injury Stated Complaint: fell and hit head-laceration to top of head Time Seen by Provider: 03/08/18 15:25 Source: patient Exam Limitations: no limitations - History of Present Illness Initial Comments: Janice Martínez 87 y/o female sted that she slipped and fell at her apartment today as she was turning around and hit her head on a side table noted bleeding on his scalp after incident.No LOC,remembers incident ,no headache no blurry vision,No N/V. Occurred: just prior to arrival Severity: moderate Head Injury Location: parietal Method of Injury: fell Other Pain/Injuries: none Loss of Consciousness: no loss of consciousness Associated Symptoms: denies symptoms Allergies/Adverse Reactions: Allergies Sulfa Antibiotics Allergy (Verified 07/27/17 22:29) Lorazepam [From Ativan] Adverse Reaction (Unknown, Verified 07/27/17 22:29) Other Makes her mean Aspirin Adverse Reaction (Verified 07/27/17 22:29) Celecoxib [From Celebrex] Adverse Reaction (Verified 07/27/17 22:29) Morphine Adverse Reaction (Verified 07/27/17 22:29) Other Home Medications: Ambulatory Orders Estradiol 0.5 mg PO DAILY 10/25/15 Ipratropium/Albuterol [Duoneb] 3 ml INH Q4H PRN 10/27/15 [place]-3 Fatty Acids [Blain Oil-1000 200 mg] 1 cap PO DAILY 10/27/15 Apixaban [Eliquis] 2.5 mg PO BID #60 tab 10/29/15 Atorvastatin Calcium [Lipitor] 10 mg PO DAILY 04/01/16 Flecainide Acetate 25 mg PO BID 04/01/16 Tramadol HCl 50 mg PO Q6HR PRN 04/01/16 Calcium 1 ea DAILY 11/13/16 Furosemide [Lasix] 20 mg PO DAILY 11/13/16 Multiple Vitamin [Multi Vitamin] 1 tab PO DAILY 11/13/16 Ophthalmic Salt Solution [Dacriose] 1 applic BOTH_EYES DAILY PRN 11/13/16 Umeclidinium-Vilanterol [Anoro Ellipta 62.5-25 Mcg/INH] 1 puff INH DAILY Fexofenadine HCl [Jesi Allergy] 180 mg PO DAILY 07/27/17 Metoprolol Succinate [Toprol Xl] 25 mg PO DAILY 07/27/17 Trolamine Salicylate [Aspercreme Nighttime] 10 % EX DAILY PRN 07/27/17 Bifidobacterium Infantis [Align] 4 mg PO BID cap 07/31/17 Levofloxacin [Levaquin] 250 mg PO DAILY #13 tablet 07/31/17 guaiFENesin ER TAB [Mucinex Tab] 1,200 mg PO BID tab 07/31/17 levoFLOXacin [Levaquin] 250 mg PO DAILY #8 tab 08/06/17 Review of Systems - Review of Systems Constitutional: States: no symptoms reported EENTM: States: no symptoms reported Respiratory: States: no symptoms reported Cardiology: States: no symptoms reported Gastrointestinal/Abdominal: States: no symptoms reported Genitourinary: States: no symptoms reported Musculoskeletal: States: no symptoms reported Skin: States: see HPI Neurological: States: no symptoms reported Endocrine: States: no symptoms reported Past Medical History (General) - Patient Medical History Hx Seizures: No Hx Stroke: No Hx Dementia: No Hx Asthma: No Hx of COPD: Yes Hx Cardiac Disorders: Yes Hx Congestive Heart Failure: Yes Hx Pacemaker: No Hx Hypertension: Yes Hx Thyroid Disease: No Hx Diabetes: No Hx Gastroesophageal Reflux: No Hx Renal Disease: No Hx Cancer: Yes - Lung - R pneumonectomy (top 1/3 removed) Hx of HIV: No Hx MRSA: No Surgical History: appendectomy, cholecystectomy, other - hysterectomy; pneumonectomy - Vaccination History Hx Tetanus, Diphtheria Vaccination: - unknown Hx Influenza Vaccination: Yes Hx Pneumococcal Vaccination: Yes - Social History Hx Tobacco Use: Yes Hx Chewing Tobacco Use: No Hx Alcohol Use: No Hx Substance Use: No Hx Substance Use Treatment: No Hx Depression: No Hx Physical Abuse: No Hx Emotional Abuse: No Hx Suspected Abuse: No - Activities of Daily Living Intermediate/Assisted Living (if applicable):: [place] - Female History Patient : No Family Medical History - Family History Father Living Status: Hx Family Asthma: No Hx Family Congestive Heart Failure: Yes Hx Family Hypertension: Yes Hx Family Stroke: No Hx Cardiac Disease: Yes Hx Family Diabetes: No Hx Family Cancer: Yes - mom-ovarian;prostate-ddad Physical Exam - Physical Exam General Appearance: Alert, Comfortable, No apparent distress Head Injury: other - scalp laceration Eye Exam: bilateral normal ENT Exam: hearing grossly normal, no evidence of ENT injury, no dental injury Neck Exam: non-tender, full range of motion, normal alignment, normal inspection Cardiovascular/Respiratory: no M/R/G, normal breath sounds, no respiratory distress, irregularly irregular Gastrointestinal/Abdominal: normal bowel sounds, non tender, soft, no organomegaly Back Exam: normal inspection, no CVA tenderness Extremity: normal range of motion, no pedal edema, no calf tenderness 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, 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: normal hearing, normal speech, PERRL Coordination/Gait: normal gait Motor/Sensory: no motor deficit, no sensory deficit, no pronator drift Skin Exam: normal color, warm/dry Lymphatic: no adenopathy - [place] Coma Score Best Eye Response (Loma): (4) open spontaneously Best Verbal Response (Vivien): (5) oriented Best Motor Response (Vivien): (6) obeys commands [place] Total: 15 Progress - Progress Progress: 03/08/18 15:42 Vital Signs - 8 hr 03/08/18 14:02 Temperature 97.6 F Pulse Rate [ 94 H Right Brachial] Respiratory 20 Rate Blood Pressure 132/59 [Right Arm] O2 Sat by Pulse 93 L Oximetry - EKG/XRAY/CT CT Ordered: Yes - head-no hemorrhage or infarct;vascular calcification Procedures - Laceration/Wound Repair Parietal Wound Length (cm): 3 - scalp Wound's Depth, Shape: superficial Wound Explored: no foreign body removed Irrigated w/ Saline (cc's): 20 Betadine Prep?: No Anesthesia: 1% Lidocaine Volume Anesthetic (cc's): 2 - GEL Wound Repaired With: heber Number of Sutures: 7 Layer Closure?: No Sterile Dressing Applied?: Yes Departure - Departure Clinical Impression: Laceration of scalp without complication Qualifiers: Encounter type: initial encounter Qualified Code(s): S01.01XA - Laceration without foreign body of scalp, initial encounter Fall Qualifiers: Encounter type: initial encounter Qualified Code(s): W19.XXXA - Unspecified fall, initial encounter Time of Disposition: 16:08 Disposition: Discharge to Home or Self Care Departure Forms: ED Discharge - Pt. Copy, Patient Portal Self Enrollment Instructions: DI for Closed Head Injury, Laceration Repair With [place] ([place]) Referrals: Bora Brown MD [Primary Care Provider] - 1-2 Weeks Home Medications: Ambulatory Orders Estradiol 0.5 mg PO DAILY 10/25/15 Ipratropium/Albuterol [Duoneb] 3 ml INH Q4H PRN 10/27/15 [place]-3 Fatty Acids [Blain Oil-1000 200 mg] 1 cap PO DAILY 10/27/15 Apixaban [Eliquis] 2.5 mg PO BID #60 tab 10/29/15 Atorvastatin Calcium [Lipitor] 10 mg PO DAILY 04/01/16 Flecainide Acetate 25 mg PO BID 04/01/16 Tramadol HCl 50 mg PO Q6HR PRN 04/01/16 Calcium 1 ea DAILY 11/13/16 Furosemide [Lasix] 20 mg PO DAILY 11/13/16 Multiple Vitamin [Multi Vitamin] 1 tab PO DAILY 11/13/16 Ophthalmic Salt Solution [Dacriose] 1 applic BOTH_EYES DAILY PRN 11/13/16 Umeclidinium-Vilanterol [Anoro Ellipta 62.5-25 Mcg/INH] 1 puff INH DAILY Fexofenadine HCl [Jesi Allergy] 180 mg PO DAILY 07/27/17 Metoprolol Succinate [Toprol Xl] 25 mg PO DAILY 07/27/17 Trolamine Salicylate [Aspercreme Nighttime] 10 % EX DAILY PRN 07/27/17 Bifidobacterium Infantis [Align] 4 mg PO BID cap 07/31/17 Levofloxacin [Levaquin] 250 mg PO DAILY #13 tablet 07/31/17 guaiFENesin ER TAB [Mucinex Tab] 1,200 mg PO BID tab 07/31/17 levoFLOXacin [Levaquin] 250 mg PO DAILY #8 tab 08/06/17 Additional Instructions: Removal of heber 15 March 2018 [facility] ER;may take Tylenol 500 mg one tablet every 6 hours as needed for pain;May use ice pack to affected area 20 minutes 3 x a day every 3 hours during waking hours only for today
[2018-03-08] MEDS ORDERED: TETANUS,DIPHTHERIA,PERTUSSIS 1 EA SYG IM ONE (16:07)
[2018-03-08 16:32] VITALS: BP 160/84; O2SAT 98
== END 2018-03-08 16:32 | disposition home or self-care (01) ==
LOC: ER 13:25
DX: S01.01XA Laceration without foreign body of scalp, initial encounter (principal); J44.9 Chronic obstructive pulmonary disease, unspecified; I50.9 Heart failure, unspecified; I11.0 Hypertensive heart disease with heart failure; Z87.891 Personal history of nicotine dependence; Z79.899 Other long term (current) drug therapy; Z85.118 Personal history of other malignant neoplasm of bronchus and lung; Z88.2 Allergy status to sulfonamides; Z88.8 Allergy status to other drugs, medicaments and biological substances; Z88.6 Allergy status to analgesic agent; Z88.5 Allergy status to narcotic agent; W01.0XXA Fall on same level from slipping, tripping and stumbling without subsequent striking against object, initial encounter; Y92.039 Unspecified place in apartment as the place of occurrence of the external cause

== ENCOUNTER → 2018-08-27 | Outpatient (CLI) | payer MEDICARE, OTHER | LOC: BFHH 08:36 | PROVIDERS: ATTEND Family Medicine | DX: I11.0 Hypertensive heart disease with heart failure (principal); I50.20 Unspecified systolic (congestive) heart failure; E11.9 Type 2 diabetes mellitus without complications; E78.5 Hyperlipidemia, unspecified ==

== ENCOUNTER → 2018-10-03 | Outpatient (CLI) | payer MEDICARE, OTHER ==
--- NOTE | 2018-10-03 15:37 | US ---
EXAM DESCRIPTION: Venous,Lower Extremity LT CLINICAL HISTORY: UNSP PVD COMPARISON: None Available. TECHNIQUE: Left lower extremity venous duplex FINDINGS: Doppler evaluation of the left lower extremity deep veins was performed. Normal color flow is seen in the common femoral, superficial femoral, profunda femoral and greater saphenous veins. Normal flow is seen in the popliteal vein and veins below the knee in the calf. Normal venous compressibility and flow augmentation. IMPRESSION: Negative for evidence of deep venous thrombosis on left lower extremity venous Doppler sonogram. Electronically signed by: Shakeel Thakkar MD 10/03/2018 3:34 PM CDT
--- NOTE | 2018-10-03 15:41 | US ---
Exam: Bilateral lower extremity arterial Doppler sonogram CLINICAL HISTORY: Unspecified peripheral vascular disease TECHNIQUE: Doppler sonographic evaluation of the right lower extremities was performed. FINDINGS: Right Submitted sonographic images reveal calcified plaque in the right common femoral and superficial femoral arteries with extensive calcified plaque in the popliteal artery. Calcified vessels below the right knee. The following peak systolic flow flow velocity measurements were obtained: Common femoral artery velocity equals 114 centimeters per second , triphasic. Superficial femoral artery velocity equals 92-114 centimeters per second , biphasic. Popliteal artery velocity equals 73 centimeters per second , biphasic. Peroneal artery velocity equals 41 centimeters per second , monophasic. Posterior tibial artery velocity equals 41 centimeters per second , monophasic. Dorsalis pedis artery velocity equals 27 centimeters per second , monophasic. IMPRESSION: Monophasic flow in the right lower extremity arteries below the knee. Moderate atherosclerotic plaque in the common femoral and superficial femoral arteries with more severe plaque in the popliteal artery. Electronically signed by: Shakeel Thakkar MD 10/03/2018 3:38 PM CDT
--- NOTE | 2018-10-03 15:45 | US ---
EXAM DESCRIPTION: Venous,Lower Extremity RT CLINICAL HISTORY: UNSP PVD COMPARISON: None Available. TECHNIQUE: Right lower extremity venous duplex FINDINGS: Doppler evaluation of the right lower extremity deep veins was performed. Normal color flow is seen in the common femoral, superficial femoral, profunda femoral and greater saphenous veins. Normal flow is seen in the popliteal vein and veins below the knee in the calf. Normal venous compressibility and flow augmentation. IMPRESSION: Negative for evidence of deep venous thrombosis on right lower extremity venous Doppler sonogram. Electronically signed by: Shakeel Thakkar MD 10/03/2018 3:42 PM CDT
--- NOTE | 2018-10-03 15:45 | US ---
Exam: Bilateral lower extremity arterial Doppler sonogram CLINICAL HISTORY: Unspecified peripheral vascular disease TECHNIQUE: Doppler sonographic evaluation of the left lower extremity was performed. FINDINGS: Left Submitted sonographic images reveal extensive calcified plaque in the left common femoral artery with milder plaque in the superficial femoral artery. Prominent plaque in the left popliteal artery. Calcified vessels below the left knee. The following peak systolic flow flow velocity measurements were obtained: Common femoral artery velocity equals 132 centimeters per second , biphasic. Superficial femoral artery velocity equals 62-104 centimeters per second , biphasic. Popliteal artery velocity equals 74 centimeters per second , biphasic. Peroneal artery velocity equals 22 centimeters per second , monophasic. Posterior tibial artery velocity equals 51 centimeters per second , monophasic. Dorsalis pedis artery velocity equals 21 centimeters per second , biphasic. IMPRESSION: Atherosclerotic plaque in the common femoral and superficial femoral and popliteal arteries. No focal high-grade stenosis. Monophasic flow in the posterior tibial and peroneal arteries. Electronically signed by: Shakeel Thakkar MD 10/03/2018 3:42 PM CDT
== END ==
LOC: US 09:39
PROVIDERS: ATTEND Family Medicine
DX: I70.201 Unspecified atherosclerosis of native arteries of extremities, right leg (principal); R60.0 Localized edema

== ENCOUNTER → 2018-10-25 | Outpatient (CLI) | payer MEDICARE, OTHER | LOC: GMAM 13:29 | PROVIDERS: ATTEND Family Medicine | DX: R06.02 Shortness of breath (principal) ==

== ENCOUNTER → 2019-03-19 | Outpatient (CLI) | payer MEDICARE, OTHER | LOC: BFHOS 08:31 | PROVIDERS: ATTEND Family Medicine | DX: J44.1 Chronic obstructive pulmonary disease with (acute) exacerbation (principal); I11.0 Hypertensive heart disease with heart failure; I50.32 Chronic diastolic (congestive) heart failure; I50.20 Unspecified systolic (congestive) heart failure; I25.10 Atherosclerotic heart disease of native coronary artery without angina pectoris; I48.2 Chronic atrial fibrillation; R73.09 Other abnormal glucose ==

== ENCOUNTER 2019-04-17 07:01 | Observation (INO) | payer MEDICARE, OTHER ==
--- NOTE | 2019-04-17 07:53 | CT ---
EXAM DESCRIPTION: Head CLINICAL HISTORY: Aphasia, right arm paresthesia COMPARISON: March 08, 2018 TECHNIQUE: Non contrast cranial CT This exam was performed according to our departmental dose-optimization program, which includes automated exposure control, adjustment of the mA and/or kV according to patient size and/or use of iterative reconstruction technique. FINDINGS: Age-related atrophic changes with modest prominence of the ventricular system and sylvian fissures without mass effect or midline shift is present. Periventricular white matter low-density changes of aging and small vessel disease slightly more prominent on the left than the right are unchanged from previous years study. No parenchymal or subarachnoid or subdural or ventricular hemorrhage or mass effect is seen. Periventricular low density is most prominent in the left trigone region and in the right supraventricular region but both areas little changed from previous February 2018 study. Bony calvarium is intact. Petrous ridges and upper paranasal sinuses are stable without acute consolidation or inflammation. The third and fourth ventricles remain midline. IMPRESSION: 1. Age-related changes with atrophy and periventricular low-density changes of small vessel disease and normal aging with no acute intracranial process noted. Electronically signed by: Bora Arita MD 04/17/2019 7:52 AM CDT
--- NOTE | 2019-04-17 08:56 | ED.PDOC ---
History of Present Illness - General Chief Complaint: General Stated Complaint: right sided weakness x's 2 days Time Seen by Provider: 04/17/19 07:15 Source: patient, RN notes reviewed, Vital Signs reviewed Exam Limitations: clinical condition - History of Present Illness Timing/Duration: other - 2 days of RUE weakness. With new aphasia this AM per the patient and facial droop per assisted living. Severity: mild Improving Factors: nothing Worsening Factors: nothing Associated Symptoms: denies symptoms Allergies/Adverse Reactions: Allergies Fluticasone [From Advair Diskus] Allergy (Verified 04/17/19 07:13) Macrolides and Ketolides Allergy (Verified 04/17/19 07:13) Milk Protein Extract [From Advair Diskus] Allergy (Verified 04/17/19 07:13) Salmeterol [From Advair Diskus] Allergy (Verified 04/17/19 07:13) Sulfa Antibiotics Allergy (Verified 04/17/19 07:13) Sulfacetamide [From Sulfacet-R] Allergy (Verified 04/17/19 07:13) Sulfur [From Sulfacet-R] Allergy (Verified 04/17/19 07:13) Lorazepam [From Ativan] Adverse Reaction (Unknown, Verified 04/17/19 07:13) Other Makes her mean Aspirin Adverse Reaction (Verified 10/11/18 10:11) Celecoxib [From Celebrex] Adverse Reaction (Verified 04/17/19 07:13) Morphine Adverse Reaction (Verified 04/17/19 07:13) Other Home Medications: Ambulatory Orders Estradiol 0.5 mg PO DAILY 10/25/15 Ipratropium/Albuterol [Duoneb] 3 ml INH Q4H PRN 10/27/15 [place]-3 Fatty Acids [[place] Oil-1000 200 mg] 1 cap PO DAILY 10/27/15 Apixaban [Eliquis] 2.5 mg PO BID #60 tab 10/29/15 Atorvastatin Calcium [Lipitor] 10 mg PO BEDTIME 04/01/16 Tramadol HCl 50 mg PO Q6HR PRN 04/01/16 Calcium 1 ea DAILY 11/13/16 Furosemide [Lasix] 20 mg PO DAILY 11/13/16 Umeclidinium-Vilanterol [Anoro Ellipta 62.5-25 Mcg/INH] 1 puff INH DAILY 11/13/16 Fexofenadine HCl [Jesi Allergy] 180 mg PO DAILY 07/27/17 Metoprolol Succinate [Toprol Xl] 25 mg PO DAILY 07/27/17 Trolamine Salicylate [Aspercreme Nighttime] 10 % EX DAILY PRN 07/27/17 Docusate Sodium 100 mg PO DAILY PRN 10/11/18 Flecainide Acetate 100 mg PO BID 10/11/18 Gabapentin 100 mg PO BID 10/11/18 Sumatriptan Succinate 50 mg PO DAILY PRN 10/11/18 guaiFENesin ER TAB [Mucinex Tab] 1,200 mg PO BID PRN 10/11/18 Review of Systems - Review of Systems Constitutional: States: no symptoms reported EENTM: States: no symptoms reported Respiratory: States: no symptoms reported Cardiology: States: no symptoms reported Gastrointestinal/Abdominal: States: no symptoms reported Genitourinary: States: no symptoms reported Musculoskeletal: States: no symptoms reported Skin: States: no symptoms reported Neurological: States: see HPI, paresthesia Endocrine: States: no symptoms reported Hematologic/Lymphatic: States: no symptoms reported Past Medical History (General) - Patient Medical History Hx Seizures: No Hx Stroke: No Hx Dementia: No Hx Asthma: No Hx of COPD: Yes Hx Cardiac Disorders: Yes - A-Fib, tachycardia, Hx Congestive Heart Failure: Yes Hx Pacemaker: No Hx Hypertension: Yes Hx Thyroid Disease: No Hx Diabetes: No Hx Gastroesophageal Reflux: Yes Hx Renal Disease: No Hx Cancer: No Hx of HIV: No Hx Hepatitis C: No Hx MRSA: No Surgical History: noncontributory - Vaccination History Hx Tetanus, Diphtheria Vaccination: - unknown Hx Influenza Vaccination: Yes - 2018 Hx Pneumococcal Vaccination: Yes - Social History Hx Tobacco Use: Yes - Quit 1997 Hx Chewing Tobacco Use: No Hx Alcohol Use: No Hx Substance Use: No Hx Substance Use Treatment: No Hx Depression: No Hx Physical Abuse: No Hx Emotional Abuse: No Hx Suspected Abuse: No - Activities of Daily Living Alf/Assisted Living (if applicable):: [place] - Female History Patient : No Family Medical History - Family History Father Family History: Unknown Living Status: Hx Family Asthma: No Hx Family Congestive Heart Failure: Yes Hx Family Hypertension: Yes Hx Family Stroke: No Hx Cardiac Disease: Yes Hx Family Diabetes: No Hx Family Cancer: Yes - mom-ovarian;prostate-ddad Physical Exam - Physical Exam General Appearance: Alert, Comfortable, No apparent distress Eye Exam: bilateral normal Neck: non-tender, full range of motion Respiratory: chest non-tender, lungs clear Cardiovascular/Chest: normal peripheral pulses, regular rate, rhythm Gastrointestinal/Abdominal: non tender, soft 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 Also with mild aphasia for NIH 3. CT head, EKG, labs without acute changes. Also possibly on Eliquis or other anticoagulant for Afib. Discussed with Gena Raygoza and Dr. Brown regarding findings who recommend tele neuro consult and admission for MRI head. 04/17/19 09:11 Dr. Mata with neurology recommends MRI, will see patient via telemetry, and drop a note. - EKG/XRAY/CT EKG: Sinus, LBBB CT: no acute changes. Departure - Departure Clinical Impression: CVA (cerebral vascular accident) Disposition: Discharge to Home or Self Care Departure Forms: ED Discharge - Pt. Copy, Patient Portal Self Enrollment Referrals: Bora Brown MD [Primary Care Provider] - 1-2 Weeks Home Medications: Ambulatory Orders Estradiol 0.5 mg PO DAILY 10/25/15 Ipratropium/Albuterol [Duoneb] 3 ml INH Q4H PRN 10/27/15 [place]-3 Fatty Acids [[place] Oil-1000 200 mg] 1 cap PO DAILY 10/27/15 Apixaban [Eliquis] 2.5 mg PO BID #60 tab 10/29/15 Atorvastatin Calcium [Lipitor] 10 mg PO BEDTIME 04/01/16 Tramadol HCl 50 mg PO Q6HR PRN 04/01/16 Calcium 1 ea DAILY 11/13/16 Furosemide [Lasix] 20 mg PO DAILY 11/13/16 Umeclidinium-Vilanterol [Anoro Ellipta 62.5-25 Mcg/INH] 1 puff INH DAILY 11/13/16 Fexofenadine HCl [Jesi Allergy] 180 mg PO DAILY 07/27/17 Metoprolol Succinate [Toprol Xl] 25 mg PO DAILY 07/27/17 Trolamine Salicylate [Aspercreme Nighttime] 10 % EX DAILY PRN 07/27/17 Docusate Sodium 100 mg PO DAILY PRN 10/11/18 Flecainide Acetate 100 mg PO BID 10/11/18 Gabapentin 100 mg PO BID 10/11/18 Sumatriptan Succinate 50 mg PO DAILY PRN 10/11/18 guaiFENesin ER TAB [Mucinex Tab] 1,200 mg PO BID PRN 10/11/18 Decision To Admit - Decistion To Admit Decision to Admit Reason: Admit from ER - CVA symptoms, needing MRI Decision to Admit Date: 04/17/19 Decision to Admit Time: 09:12
--- NOTE | 2019-04-17 09:25 | HP ---
SUPERVISING PHYSICIAN: Fer Silveira M.D. CHIEF COMPLAINT: Right sided weakness. HISTORY OF PRESENT ILLNESS: This is an 89 year-old female patient that lives at [facility]. She has had 2 to 3 days of right upper extremity weakness that has progressively worsened. She has also had some aphasia with slurred speech. The staff at [facility] reported that she had a facial droop. In the Emergency Room, her initial vital signs showed temperature 97.6, heart rate 80, blood pressure 177/78, respiratory rate 18, O2 sat 97%. Lab studies were done and her electrolytes were basically within normal limits. Her troponin was negative. CBC was within normal limits. Urinalysis was negative. Head CT was obtained that showed age-related changes with atrophy and periventricular low density changes of small vessel disease with normal aging. No acute intracranial process noted. Telemedicine for Neurology was consulted and after her examination they felt that she would benefit from admitting to the hospital under observation and obtaining an MRI with some neurologic checks overnight. I was called for admission. The patient was placed in observation. PAST MEDICAL HISTORY: 1. Chronic obstructive pulmonary disease. 2. Peripheral vascular disease. 3. Atrial fibrillation with a controlled rate on Metoprolol and Eliquis, followed by Dr. Salvador. 4. Hypertension. 5. Osteoporosis. 6. History of lung cancer in the past with a lung resection. 7. History of migraine headaches. 8. Congestive heart failure of diastolic etiology. Last echocardiogram on record was from 2006 and showed a 55% ejection fraction. PAST SURGICAL HISTORY: 1. Appendectomy. 2. Hysterectomy. 3. Lung resection of the right upper lobe secondary to lung cancer. 4. Bladder suspension. 5. Cataract removal. OUTPATIENT MEDICATIONS: Per the EMR and awaiting verification. ALLERGIES: FLUTICASONE, MACROLIDES, SULFA, LORAZEPAM, ASPIRIN, CELEBREX AND MORPHINE. SOCIAL HISTORY: She lives at [facility]. She is . She quit smoking in 1998. She denies any alcohol or illicit drug use. REVIEW OF SYSTEMS: GENERAL: Denies fever, fatigue or weight changes. HEENT: Negative for sinus symptoms, ear pain, vision changes or sore throat. RESPIRATORY: Negative for coughing, wheezing or shortness of breath. CARDIAC: Negative for palpitations, tachycardia or chest pain. GASTROINTESTINAL: Negative for nausea, vomiting or diarrhea. GENITOURINARY: Negative for hematuria, dysuria or polyuria. SKIN: Negative for lesions or rashes. NEUROLOGIC: As per the history of present illness. PHYSICAL EXAMINATION: VITAL SIGNS: Temperature 97.6, heart rate 79, blood pressure 148/62, respiratory rate 18, O2 sat 95% on room air. GENERAL: This is an 89 year-old female patient who is lying in her hospital bed. She is in no acute distress. HEENT: Normocephalic and atraumatic. Pupils are equal and reactive. Oropharynx is clear. NECK: Supple without mass. RESPIRATORY: Essentially clear to auscultation bilaterally. CHEST: There is equal rise and fall of the chest with inspiration and expiration. CARDIOVASCULAR: Regular rate, slightly irregular rhythm. GASTROINTESTINAL: Abdomen is soft, nondistended, non-tender. Bowel sounds are positive. NEUROLOGIC: Cranial nerves II-XII are grossly intact. There is a facial droop. 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 There is no drift. SKIN: Warm and dry. LABORATORY: As per the history of present illness. RADIOLOGY: Brain MRI shows age appropriate atrophy with moderate old small vessel ischemic type changes. No MRI evidence of acute intracranial ischemia, mass or mass effect. Chest x-ray shows no acute infiltrate or consolidation. All other labs and films have been reviewed via the EMR. ASSESSMENT: 1. Transient ischemic attack with slurred/slow speech, mild facial drooping and mild right sided weakness. 2. Chronic obstructive pulmonary disease without exacerbation. 3. History of atrial fibrillation with a controlled rate on Eliquis and Metoprolol. 4. Peripheral vascular disease with peripheral neuropathy. 5. Hypertension that is controlled on medications. 6. History of lung cancer with a right upper lobe lung resection. 7. Congestive heart failure without signs or symptoms of exacerbation. Her last echocardiogram on the chair that she has mild diastolic dysfunction with an ejection fraction of 55%. PLAN: We will admit the patient to the hospital and place her in observation. The TIA guidelines have been initiated and her MRI has been completed. We will get a carotid ultrasound and her Eliquis has been continued. She is on an aspirin so I do not think she needs any further antiplatelet aggregation. I will schedule her for p.r.n. breathing treatments. 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 In addition to the carotid ultrasound in the morning I will also do an echocardiogram as we do not have a recent echo on the chart. I have added a PPI for ulcer prophylaxis. Will continue to monitor closely and follow as needed. #[id number] BETTY
[2019-04-17] MEDS ORDERED: SODIUM CHLORIDE 0.9% (FLUSH) 10 ML SYG IV PRN (09:45)
[2019-04-17] MEDS ORDERED: ONDANSETRON INJ 4 MG/2 ML VIAL IV PRN (09:45)
[2019-04-17] MEDS ORDERED: HALOPERIDOL LACTATE INJ 5 MG/ML VIAL IM ONE (09:53)
[2019-04-17] MEDS ORDERED: IV SET AND CAP CHANGE INJ INJ SCH (10:00)
--- NOTE | 2019-04-17 12:32 | MRI ---
EXAM DESCRIPTION: Brain w/oContrast CLINICAL HISTORY: tia COMPARISON: None TECHNIQUE: Multiplanar, multi sequence MR images of the head are obtained without IV gadolinium contrast using standard imaging protocol. FINDINGS: The midline structures are not displaced. Sulci are age appropriate. The lateral, third, and fourth ventricles are normal in size, shape, and anatomic positioning. Normal cabral-white differentiation is seen. Normal flow voids are seen in the major intracranial vessels including the dural venous sinuses. There is no evidence of mass, mass effect, hydrocephalus, or acute intracranial hemorrhage. No abnormal extra-axial fluid collections are seen. Moderate confluent and scattered focal areas of increased FLAIR/T2 signal are seen in the periventricular white matter and white matter of the centrum semiovale. No diffusion restriction is seen. Gradient echo images show no abnormal signal. The pituitary is unremarkable. Visualized paranasal sinuses are unremarkable. The visualized orbits and mastoid air cells are unremarkable. IMPRESSION: Age-appropriate atrophy with moderate old small vessel ischemic type changes. No MRI evidence of acute intracranial ischemia, mass, or mass effect. Electronically signed by: Cr Castano MD 04/17/2019 12:30 PM CDT
--- NOTE | 2019-04-17 12:58 | RAD ---
EXAM DESCRIPTION: Chest,1 View CLINICAL HISTORY: ams COMPARISON: October 14, 2018 IMPRESSION: Single AP portable upright view of the chest shows cardiac silhouette and pulmonary vasculature to be within normal limits. Lungs are hyperinflated. Surgical clips in the right hilar region with elevation of the hilum is seen. Moderate apical pleural thickening in the medial aspect of the right chest is similar to previous exam given differences in patient positioning with mild shift of the trachea towards the right. No bone destructive changes. No acute infiltrate or consolidation. No pleural effusion or pneumothorax. Electronically signed by: Cr Castano MD 04/17/2019 12:56 PM CDT
[2019-04-17] MEDS ORDERED: [UNRECOGNIZED DRUG - OTHER] PO PRN (18:55)
[2019-04-17] MEDS ORDERED: TROLAMINE SALICYLATE 10% EX PRN (18:55)
[2019-04-17] MEDS ORDERED: SUMAtriptan SUCCINATE 50 MG TAB PO PRN (18:55)
[2019-04-17] MEDS ORDERED: traMADol HCL 50 MG TAB PO PRN (18:55)
[2019-04-17] MEDS ORDERED: NYSTATIN POWDER 15GM BTTL TOP SCH (19:00)
[2019-04-17] MEDS ORDERED: POLYETHY-PROP GLYCOL OPHTH SOL 1 DROP BOTH_EYES SCH (19:00)
[2019-04-17] MEDS ORDERED: APIXABAN 5 MG TAB PO ONE (19:34)
[2019-04-17] MEDS ORDERED: FLECAINIDE 50 MG TAB PO ONE (19:35)
[2019-04-17] MEDS: FLECAINIDE ACETATE 100 MG PO SCH (20:51)
[2019-04-17] MEDS: SODIUM CHLORIDE 0.9% (FLUSH) 10 ML SYG IV SCH (20:52)
[2019-04-17] MEDS: NON-FORMULARY MEDICATION 1 EA MIS (Apixaban [Eliquis] 2.5 MG) PO SCH (20:52)
[2019-04-18] MEDS ORDERED: PANTOPRAZOLE SODIUM IV 40 MG VIAL IV SCH (06:30)
[2019-04-18] MEDS ORDERED: METOPROLOL TARTRATE 25 MG TAB PO SCH (09:00)
[2019-04-18] MEDS ORDERED: OMEGA PO SCH (09:00)
[2019-04-18] MEDS ORDERED: FATTY ACIDS PO SCH (09:00)
[2019-04-18] MEDS ORDERED: NON-FORMULARY MEDICATION 1 EA MIS (Fluticasone-Umeclidinium-Vilan [Trelegy Ellipta 100-62. INH SCH (09:00)
[2019-04-18] MEDS ORDERED: APIXABAN 5 MG TAB PO ONE (09:44)
[2019-04-18] MEDS ORDERED: FLECAINIDE 50 MG TAB PO ONE (09:44)
[2019-04-18] MEDS ORDERED: FISH OIL 1,200 MG CAP ONE (09:45)
[2019-04-18] MEDS ORDERED: METOPROLOL TARTRATE 25 MG TAB ONE (09:45)
[2019-04-18] MEDS: FLECAINIDE ACETATE 100 MG PO SCH (09:52)
[2019-04-18] MEDS: NON-FORMULARY MEDICATION 1 EA MIS (Apixaban [Eliquis] 2.5 MG) PO SCH (09:53)
[2019-04-18] MEDS ORDERED: [UNRECOGNIZED DRUG - OTHER] PO PRN (09:53)
[2019-04-18] MEDS: SODIUM CHLORIDE 0.9% (FLUSH) 10 ML SYG IV SCH (09:54)
[2019-04-18 14:17] VITALS: O2SAT 97
--- NOTE | 2019-04-18 14:29 | US ---
EXAM DESCRIPTION: Carotid Duplex CLINICAL HISTORY: 89 years, Female, tia with r-sided weakness COMPARISON: [None.] FINDINGS: Indirect estimation of percent stenosis is inferred from velocity parameters and cross referenced to published or self-generated correlations among velocity parameters. Peak systolic velocity right common carotid artery 118 centimeters/second. Peak systolic velocity right internal carotid artery 98 centimeters/second. Right ICA to CCA ratio 0.8. Antegrade flow in the right vertebral artery. Grayscale images show a moderate amount of plaque in the right carotid bifurcation. Peak systolic velocity left common carotid artery 114 centimeters/second. Peak systolic velocity left internal carotid artery 148 centimeters/second. Left ICA to CCA ratio 1.3. [Antegrade] flow in the left vertebral artery. Grayscale images show a small amount of plaque in the left carotid bifurcation. IMPRESSION: Mild (less than 50%) right-sided carotid artery stenosis and moderate (50-69%) left-sided carotid artery stenosis by velocity criteria. Grayscale images demonstrate stenosis in the right carotid bifurcation approaching 60%.. Electronically signed by: Jorge Luis Montana MD 04/18/2019 2:27 PM CDT
[2019-04-18 14:58] VITALS: BP 131/72; TEMP 98.1
[2019-04-18] MEDS ORDERED: FLECAINIDE 50 MG TAB PO SCH (21:00)
[2019-04-18] MEDS ORDERED: APIXABAN 5 MG TAB PO SCH (21:00)
--- NOTE | 2019-04-20 14:29 | DS ---
SUPERVISING PHYSICIAN: Fer Silveira MD ADMISSION DIAGNOSES: 1. Transient ischemic attack with slurred/slow speech, mild facial drooping and mild right sided weakness. 2. Chronic obstructive pulmonary disease without exacerbation. 3. History of atrial fibrillation with a controlled rate on Eliquis and Metoprolol. 4. Peripheral vascular disease with peripheral neuropathy. 5. Hypertension that is controlled on medications. 6. History of lung cancer with a right upper lobe lung resection. 7. Congestive heart failure without signs or symptoms of exacerbation. Her last echocardiogram on the chair that she has mild diastolic dysfunction with an ejection fraction of 55%. DISCHARGE DIAGNOSES: 1. Transient ischemic attack with slurred/slow speech, mild facial drooping and mild right sided weakness with complete resolution of symptoms and no recurrence during hospitalization. 2. Chronic obstructive pulmonary disease without exacerbation. 3. History of atrial fibrillation with a controlled rate on Eliquis and Metoprolol. 4. Peripheral vascular disease with peripheral neuropathy. 5. Hypertension that is controlled on medications. 6. History of lung cancer with a right upper lobe lung resection. 7. History of congestive heart failure with current echocardiogram showing a preserved ejection fraction of 55 to 60%. REASON FOR HOSPITALIZATION: This is an 89 year-old female patient that lives at [facility]. She has had 2 to 3 days of right upper extremity weakness that has progressively worsened. She has also had some aphasia with slurred speech. The staff at [facility] reported that she had a facial droop. In the Emergency Room, her initial vital signs showed temperature 97.6, heart rate 80, blood pressure 177/78, respiratory rate 18, O2 sat 97%. Lab studies were done and her electrolytes were basically within normal limits. Her troponin was negative. CBC was within normal limits. Urinalysis was negative. Head CT was obtained that showed age-related changes with atrophy and periventricular low density changes of small vessel disease with normal aging. No acute intracranial process noted. Telemedicine for Neurology was consulted and after her examination they felt that she would benefit from admitting to the hospital under observation and obtaining an MRI with some neurologic checks overnight. The patient was placed in observation in stable condition. LABORATORY: CBC was showing to be unremarkable with white count of 7,600, hemoglobin 14.8, hematocrit 45.1. Coagulation showed to be within normal limits.Chemistries on discharge showed a mildly low sodium of 134, otherwise electrolytes were within normal limits. BUN 0.47. Liver functions all within normal limits. Glucose 112, calcium 8.9. HDL 69, LDL 77, cholesterol 168, triglycerides 57. Urinalysis showed to be within normal limits. RADIOLOGY: CT of the head without contrast on admission to the Emergency Room and per radiology interpretation showed age-related changes of atrophy and periventricular low density changes of small vascular disease and normal aging with no acute intracranial process noted. This was followed up with a brain MRI with and without contrast and per radiology interpretation showed no MRI evidence of intracranial ischemia, mass or mass effect. She also had a carotid artery ultrasound study completed that showed mild less than 50% right-sided carotid artery stenosis and moderate 50 to 60% left-sided carotid artery stenosis with the right carotid bifurcation approach of 60%. She also had a chest x-ray and per radiology interpretation showed no acute infiltrate or consolidations for effusions or pneumothorax. EKG showed a sinus rhythm with a left bundle branch block. Previous comparison showed atrial fibrillation with patient having chronic atrial fibrillation with rate being controlled on this admission. HOSPITAL COURSE: Ms. Martínez was admitted for possible TIA-like symptoms. She was worked up completely with imaging studies, diagnostics, and found to have no acute findings. Her symptoms had essentially resolved prior to admission from the Emergency Room. She had no recurrence of symptoms. She had neurological checks every 4 hours, she was on telemetry and showing to be stable with no other acute findings and was felt able to continue with outpatient management. She was started on Lipitor but aspirin has been held due to the fact that she was on anticoagulation with Eliquis for her chronic atrial fibrillation and given her age of 89 and she is high-risk for falls, further anticoagulation with aspirin was relatively contraindicated. Given that no acute symptoms were noted and she had no other symptoms occur, she was felt clinically stable enough to discharge to outpatient management. PLAN: Ms. Martínez is discharged on 04/18/19 to return back to [facility]. She was to resume a low-cholesterol, low-fat diet. She was to increase activities as tolerated by physical therapy. She was to start Lipitor 20 mg daily and to followup with Dr. Brown in 7 days or sooner in as needed or in regards to continuation of the medication. All other medications including Eliquis were to be continued on discharge as prior to hospitalization. Condition on discharge was stable and improved. Disposition: The patient is discharged back to [facility]. #[id number] MTDD
== END 2019-04-18 15:45 ==
LOC: ER 07:01 → MS 09:19
PROVIDERS: ADMIT Nurse Practitioner Acute Care; ATTEND Nurse Practitioner Family
DX: G45.9 Transient cerebral ischemic attack, unspecified (principal); R47.81 Slurred speech; M62.81 Muscle weakness (generalized); J44.9 Chronic obstructive pulmonary disease, unspecified; I48.91 Unspecified atrial fibrillation; I73.9 Peripheral vascular disease, unspecified; G62.9 Polyneuropathy, unspecified; I11.0 Hypertensive heart disease with heart failure; I50.30 Unspecified diastolic (congestive) heart failure; I44.7 Left bundle-branch block, unspecified; I44.0 Atrioventricular block, first degree; I34.0 Nonrheumatic mitral (valve) insufficiency; I36.1 Nonrheumatic tricuspid (valve) insufficiency; M81.0 Age-related osteoporosis without current pathological fracture; K21.9 Gastro-esophageal reflux disease without esophagitis; Z79.01 Long term (current) use of anticoagulants; Z79.51 Long term (current) use of inhaled steroids; Z79.82 Long term (current) use of aspirin; Z79.899 Other long term (current) drug therapy; Z85.118 Personal history of other malignant neoplasm of bronchus and lung; Z90.2 Acquired absence of lung [part of]; Z90.49 Acquired absence of other specified parts of digestive tract; Z90.710 Acquired absence of both cervix and uterus; Z88.2 Allergy status to sulfonamides; Z88.6 Allergy status to analgesic agent; Z88.8 Allergy status to other drugs, medicaments and biological substances; Z87.891 Personal history of nicotine dependence; Z82.49 Family history of ischemic heart disease and other diseases of the circulatory system; Z80.41 Family history of malignant neoplasm of ovary; Z80.42 Family history of malignant neoplasm of prostate
CPT/HCPCS: 96374; 96372; J1630; 80053 ×2; 80061; 36415 ×2; 81001; 85025 ×2; 85730; 85610; 84484; 71045; 70450; 93880; 94760 ×2; 97162; 99285; 93306; 70551; 93005

== ENCOUNTER 2019-04-21 21:33 | Observation (INO) | payer MEDICARE, OTHER ==
--- NOTE | 2019-04-21 23:00 | RAD ---
EXAM DESCRIPTION: Abdomen Series CLINICAL HISTORY: 89 years Female confusion, aggitation COMPARISON: Radiograph of the chest dated April 17, 2019. TECHNIQUE: Three images of the abdomen were obtained which included an AP view of the chest FINDINGS: Gas is seen throughout the bowel. Bowel is normal in caliber. No intraperitoneal free air. Surgical clips right hilum with retraction right hilum superiorly and loss of volume right hemithorax. Apical pleural thickening and nodularity on right. Additional surgical clips right midlung. Appearance unchanged when correlated with the prior study. Fibrotic changes right perihilar region unchanged. Overlying clothing artifact. IMPRESSION: Nonspecific bowel gas pattern. No bowel obstruction or perforation. Postsurgical changes right hemithorax unchanged when correlated with the prior study. No new findings seen. Electronically signed by: Skylar Mcrae MD 04/21/2019 10:59 PM CDT
--- NOTE | 2019-04-21 23:01 | CT ---
EXAM: CT Head Without Intravenous Contrast CLINICAL HISTORY: The patient is 89 years old and is Female; confusion, agitation TECHNIQUE: Axial computed tomography images of the head/brain without intravenous contrast. Sagittal and coronal reformatted images were created and reviewed. This CT exam was performed using one or more of the following dose reduction techniques: automated exposure control, adjustment of the mA and/or kV according to patient size, and/or use of iterative reconstruction technique. COMPARISON: CT of the head April 17, 2019. FINDINGS: BRAIN: Diffuse cerebral atrophy is noted. There are nonspecific periventricular white matter changes, which are likely related to chronic small vessel disease. The cabral-white differentiation is maintained. There are no extra-axial fluid collections or acute hemorrhage. There is diffuse prominence of the ventricles, which is likely related to central atrophy. VENTRICLES: Unremarkable. No ventriculomegaly. BONES/JOINTS: No acute fracture. SOFT TISSUES: Unremarkable. SINUSES: Unremarkable as visualized. No acute sinusitis. MASTOID AIR CELLS: Unremarkable as visualized. No mastoid effusion. ORBITS: Unremarkable as visualized. IMPRESSION: 1. No acute intracranial findings visualized. 2. Nonspecific periventricular white matter changes, likely related to chronic small vessel disease. 3. Diffuse cerebral atrophy. Electronically signed by: Tasha Delcid MD 04/21/2019 10:59 PM CDT
--- NOTE | 2019-04-22 00:26 | ED.PDOC ---
History of Present Illness - General Chief Complaint: Neuro Symptoms/Deficits Stated Complaint: alterered mental status Time Seen by Provider: 04/21/19 21:37 Source: patient, EMS notes reviewed, family Exam Limitations: no limitations - History of Present Illness Initial Comments: the patient is an 89-year-old female presenting to the emergency room secondary to increased agitation essentially over the last couple of days. Additionally over the last 5 days or so the patient has had increasing generalized weakness requiring significantly more help to get around and to get to the bathroom. She was actually hospitalized here last week for strokelike symptoms and had a fairly complete workup at that time. Reports from the son and from the retirement today reports that she has been having some drooling issues. She has been eating seemingly well. They report that she is slurring her speech but she has not done any of that since her arrival here. They report that she was being aggressive toward other people at the retirement and even with her dog. She denies this but her son does agree that she has been more aggressive. She actually saw her primary care doctor earlier today and they are trying to get her into a rehabilitation program for the generalized weakness. She denies any recent trauma. She is alert and active, interactive and joking a lot. Timing/Duration: unsure Severity: moderate Improving Factors: nothing Worsening Factors: nothing Associated Symptoms: weakness Allergies/Adverse Reactions: Allergies Fluticasone [From Advair Diskus] Allergy (Verified 04/17/19 07:13) Macrolides and Ketolides Allergy (Verified 04/17/19 07:13) Milk Protein Extract [From Advair Diskus] Allergy (Verified 04/17/19 07:13) Salmeterol [From Advair Diskus] Allergy (Verified 04/17/19 07:13) Sulfa Antibiotics Allergy (Verified 04/17/19 07:13) Sulfacetamide [From Sulfacet-R] Allergy (Verified 04/17/19 07:13) Sulfur [From Sulfacet-R] Allergy (Verified 04/17/19 07:13) Lorazepam [From Ativan] Adverse Reaction (Unknown, Verified 04/17/19 07:13) Other Makes her mean Aspirin Adverse Reaction (Verified 10/11/18 10:11) Celecoxib [From Celebrex] Adverse Reaction (Verified 04/17/19 07:13) Morphine Adverse Reaction (Verified 04/17/19 07:13) Other Home Medications: Ambulatory Orders Estradiol 0.5 mg PO DAILY 10/25/15 [place]-3 Fatty Acids [[place] Oil-1000 200 mg] 1 cap PO DAILY 10/27/15 Apixaban [Eliquis] 2.5 mg PO BID #60 tab 10/29/15 Tramadol HCl 50 mg PO Q6HR PRN 04/01/16 Calcium 1 ea DAILY 11/13/16 Trolamine Salicylate [Aspercreme Nighttime] 10 % EX DAILY PRN 07/27/17 Docusate Sodium 100 mg PO DAILY PRN 10/11/18 Flecainide Acetate 100 mg PO BID 10/11/18 guaiFENesin ER TAB [Mucinex Tab] 1,200 mg PO BID PRN 10/11/18 Acetaminophen Arthritis [Tylenol Arthritis Pain] 650 mg PO Q8HR PRN 04/17/19 Cgnsvttqyxp-Uyvubcegnlgi-Hqfey [Trelegy Ellipta 100-62.5-25 Mcg/INH] 1 aer INH DAILY 04/17/19 Furosemide [Lasix] 20 mg PO DAILY PRN 04/17/19 Furosemide [Lasix] 20 mg PO NOON PRN 04/17/19 Metoprolol Tartrate 25 mg PO DAILY 04/17/19 Nystatin (Topical) [Nystop] 100,000 unit TOP PRN 04/17/19 Polyethy-Prop Glycol Ophth [Systane Ophth] 1 drop BOTH_EYES PRN 04/17/19 Sumatriptan Succinate [Imitrex] 50 mg PO DAILY PRN 04/17/19 Atorvastatin Calcium [Lipitor] 20 mg PO DAILY #30 tab 04/18/19 Review of Systems - Review of Systems Constitutional: States: weakness - generalized EENTM: States: no symptoms reported Respiratory: States: no symptoms reported Cardiology: States: no symptoms reported Gastrointestinal/Abdominal: States: other - the patient has chronic right lateral abdominal pain that has been present for 3 years. Genitourinary: States: no symptoms reported Musculoskeletal: States: no symptoms reported - chronic issues only aside from the increasing weakness Skin: States: no symptoms reported Neurological: States: see HPI Endocrine: States: no symptoms reported All other Systems: No Change from Baseline Past Medical History (General) - Patient Medical History Hx Seizures: No Hx Stroke: No Hx Dementia: No Hx Asthma: No Hx of COPD: Yes Hx Cardiac Disorders: Yes - A-Fib, tachycardia, Hx Congestive Heart Failure: Yes Hx Pacemaker: No Hx Hypertension: Yes Hx Thyroid Disease: No Hx Diabetes: No Hx Gastroesophageal Reflux: Yes Hx Renal Disease: No Hx Cancer: Yes - lung Hx of HIV: No Hx Hepatitis C: No Hx MRSA: No - Vaccination History Hx Tetanus, Diphtheria Vaccination: - unknown Hx Influenza Vaccination: Yes - 2018 Hx Pneumococcal Vaccination: Yes Immunizations Up to Date: Yes - Social History Hx Tobacco Use: Yes - Quit 1997 Hx Chewing Tobacco Use: No Hx Alcohol Use: No Hx Substance Use: No Hx Substance Use Treatment: No Hx Depression: No Hx Physical Abuse: No Hx Emotional Abuse: No Hx Suspected Abuse: No - Activities of Daily Living Half-Way/Assisted Living (if applicable):: [facility] - Female History Patient is a Female of Child Bearing Age (10 -59 yrs old): No Patient : No Family Medical History - Family History Father Family History: Unknown Living Status: Hx Family Asthma: No Hx Family Congestive Heart Failure: Yes Hx Family Hypertension: Yes Hx Family Stroke: No Hx Cardiac Disease: Yes Hx Family Diabetes: No Hx Family Cancer: Yes - mom-ovarian;prostate-ddad Physical Exam - Physical Exam General Appearance: Alert, Comfortable, Frail, No apparent distress - the patient jokesconstantly Eye Exam: bilateral normal Ears, Nose, Throat: hearing grossly normal, normal ENT inspection Neck: supple, other - she does have significant scoliosis Respiratory: lungs clear, normal breath sounds, no respiratory distress, no accessory muscle use Cardiovascular/Chest: normal peripheral pulses, regular rate, rhythm, no edema Peripheral Pulses: radial,right: 2+, radial,left: 2+, dorsalis pedis,right: 2+, dorsalis pedis,left: 2+ Gastrointestinal/Abdominal: soft, other - mild right lateral abdominal discomfort where the rib cage meets the pelvic rim Rectal Exam: deferred Back Exam: no vertebral tenderness, other - she does have significant scoliosis Extremity: normal range of motion - given her chronic arthritic changes, no pedal edema, normal capillary refill, other Neurologic: cargo agent II-XII nml as tested, alert, oriented x 3 Skin Exam: normal color Comments: Vital Signs - 24 hr 04/21/19 04/22/19 22:05 00:00 Temperature 98.5 F Pulse Rate [ 84 73 Left] Respiratory 18 18 Rate Blood Pressure 111/57 130/47 [Left Arm] O2 Sat by Pulse 99 95 Oximetry Progress - Progress Progress: 04/22/19 00:32 the patient is an 89-year-old female presenting to the emergency room secondary to progressive decline physically along with increased agitation and possibly some mild increased drooling and slurring of speech. She seems to be swallowing well here. Speech is clear here. She is alert and oriented and pleasant here. She does have significant weakness but no focal weakness. The patient will be admitted overnight for observation, to see if she exhibits any significant mental status or neurological changes over the next 24 hours. I'm avoiding sedatives on this patient. Continue routine home medications otherwise. Continue telemetry monitoring. Her primary care doctor can r eevaluate her in the morning. I do believe that she would significantly benefit from a rehabilitation program. 04/22/19 00:35 carmen vance [id number] - Results/Orders Results/Orders: Laboratory Tests 04/21/19 04/21/19 04/21/19 21:56 21:56 21:56 WBC 8.9 RBC 4.83 Hgb 15.2 Hct 44.2 MCV 91.5 MCH 31.5 H MCHC 34.4 RDW 12.5 Plt Count 193 MPV 8.1 Absolute Neuts (auto) 6.10 Absolute Lymphs (auto) 1.60 Absolute Monos (auto) 1.10 H Absolute Eos (auto) 0.00 Absolute Basos (auto) 0.00 Neutrophils % 69.1 Lymphocytes % 18.1 L Monocytes % 12.2 H Eosinophils % 0.2 L Basophils % 0.4 PT 10.4 INR 1.04 PTT (SP) 33.0 H Sodium 132 L Potassium 4.0 Chloride 96 L Carbon Dioxide 24 Anion Gap 16.0 BUN 14 Creatinine 0.49 L BUN/Creatinine Ratio 28.6 H Random Glucose 108 H Serum Osmolality 265.5 L Lactic Acid Calcium 9.5 Magnesium 1.7 L Total Bilirubin 1.0 AST 24 ALT 18 Alkaline Phosphatase 83 Creatine Kinase 71 CK-MB (CK-2) 2.5 CK-MB (CK-2) % Not Reportable Troponin I < 0.02 B-Natriuretic Peptide 345.0 H* Serum Total Protein 7.2 Albumin 3.8 Globulin 3.4 Albumin/Globulin Ratio 1.1 TSH 4.48 04/21/19 21:56 WBC RBC Hgb Hct MCV MCH MCHC RDW Plt Count MPV Absolute Neuts (auto) Absolute Lymphs (auto) Absolute Monos (auto) Absolute Eos (auto) Absolute Basos (auto) Neutrophils % Lymphocytes % Monocytes % Eosinophils % Basophils % PT INR PTT (SP) Sodium Potassium Chloride Carbon Dioxide Anion Gap BUN Creatinine BUN/Creatinine Ratio Random Glucose Serum Osmolality Lactic Acid 1.1 Calcium Magnesium Total Bilirubin AST ALT Alkaline Phosphatase Creatine Kinase CK-MB (CK-2) CK-MB (CK-2) % Troponin I B-Natriuretic Peptide Serum Total Protein Albumin Globulin Albumin/Globulin Ratio TSH head CT shows no acute changes. There are multiple chronic senescent type changes. Head CT is consistent with the one performed last week. No obvious larger territory acute infarct and no hemorrhage. Acute abdominal series shows chronic right lung changes from previous surgery. Nonspecific bowel gas pattern. No free air. No obstruction. EKG shows sinus rhythm at 83 bpm with a first-degree AV block. Poor R progression in anterior leads. No definitive ST segment or T-wave changes indicative of acute ischemia. Normal axis. Departure - Departure Clinical Impression: Inability to perform activities of daily living, Generalized weakness, Agitation Altered mental status, unspecified Qualifiers: Altered mental status type: unspecified Qualified Code(s): R41.82 - Altered mental status, unspecified Disposition: Admit Patient Departure Forms: ED Discharge - Pt. Copy, Patient Portal Self Enrollment Referrals: Bora Vance MD [Primary Care Provider] - 1-2 Weeks Home Medications: Ambulatory Orders Estradiol 0.5 mg PO DAILY 10/25/15 [place]-3 Fatty Acids [[place] Oil-1000 200 mg] 1 cap PO DAILY 10/27/15 Apixaban [Eliquis] 2.5 mg PO BID #60 tab 10/29/15 Tramadol HCl 50 mg PO Q6HR PRN 04/01/16 Calcium 1 ea DAILY 11/13/16 Trolamine Salicylate [Aspercreme Nighttime] 10 % EX DAILY PRN 07/27/17 Docusate Sodium 100 mg PO DAILY PRN 10/11/18 Flecainide Acetate 100 mg PO BID 10/11/18 guaiFENesin ER TAB [Mucinex Tab] 1,200 mg PO BID PRN 10/11/18 Acetaminophen Arthritis [Tylenol Arthritis Pain] 650 mg PO Q8HR PRN 04/17/19 Agemzsoodwu-Mponpftzrrux-Lxuad [Trelegy Ellipta 100-62.5-25 Mcg/INH] 1 aer INH DAILY 04/17/19 Furosemide [Lasix] 20 mg PO DAILY PRN 04/17/19 Furosemide [Lasix] 20 mg PO NOON PRN 04/17/19 Metoprolol Tartrate 25 mg PO DAILY 04/17/19 Nystatin (Topical) [Nystop] 100,000 unit TOP PRN 04/17/19 Polyethy-Prop Glycol Ophth [Systane Ophth] 1 drop BOTH_EYES PRN 04/17/19 Sumatriptan Succinate [Imitrex] 50 mg PO DAILY PRN 04/17/19 Atorvastatin Calcium [Lipitor] 20 mg PO DAILY #30 tab 04/18/19 Decision To Admit - Decistion To Admit Decision to Admit Reason: Medical Nature Decision to Admit Date: 04/22/19 Decision to Admit Time: 00:35
[2019-04-22] MEDS ORDERED: SODIUM CHLORIDE 0.9% (FLUSH) 10 ML SYG IV PRN (02:48)
[2019-04-22] MEDS ORDERED: IV SET AND CAP CHANGE INJ INJ SCH (03:00)
[2019-04-22 05:39] VITALS: O2SAT 100
[2019-04-22] MEDS: ACETAMINOPHEN 500 MG TAB PO PRN ×2 (10:30→17:30)
[2019-04-22] MEDS ORDERED: ACETAMINOPHEN 500 MG TAB ONE (11:37)
--- NOTE | 2019-04-22 14:25 | SSS ---
SUPERVISING PHYSICIAN: Naman Vazquez MD CHIEF COMPLAINT: Weakness and slurred speech. HISTORY OF PRESENT ILLNESS: This is an 89-year-old female who came to the Emergency Room really early this morning secondary to agitation and weakness over the past several days. She was hospitalized here from April 17 through April 19 for a workup for strokes. A CT scan did not show any stroke and it was ruled that it could potentially have been a transient ischemic attack. She has been having some drooling issues as well. She was seen by her primary care physician yesterday and they were thinking about doing rehab, but at the time, she actually did not want to do that. However, due to the continuation of symptoms, she came to the Emergency Room last night. She was seen by the ER physician and was not having those symptoms that were previously described. CT scan of the brain did not show any acute findings. For that reason, she was referred for observation. She is not having any symptoms currently. She is alert and oriented, but still weak. Physical therapy has been consulted to evaluate her as well. PAST MEDICAL HISTORY: 1. Chronic obstructive pulmonary disease. 2. Peripheral vascular disease. 3. Atrial fibrillation on metoprolol and Eliquis. 4. Hypertension. 5. Osteoporosis. 6. History of lung cancer status post lung resection. 7. History of migraine headaches. 8. Diastolic heart failure. PAST SURGICAL HISTORY: 1. Appendectomy. 2. Hysterectomy. 3. Right upper lobe bone resection secondary to cancer. 4. Bladder suspension. 5. Cataract removal. MEDICATIONS: Please see medication reconciliation record once verified in the computer. ALLERGIES: FLUTICASONE, MACROLIDES, SULFA, CLONAZEPAM, ASPIRIN, CELEBREX, MORPHINE. FAMILY HISTORY: Reviewed and noncontributory. SOCIAL HISTORY: The patient lives in [facility]. She is . She quit smoking approximately 20 years ago. No alcohol, no illicit drugs. REVIEW OF SYSTEMS: CONSTITUTIONAL: No fever or chills. No recent weight loss or weight gain. Positive for weakness. HEENT: No headaches, vision changes, ear pain, nasal congestion or throat pain. RESPIRATORY: No cough, hemoptysis or pleuritic chest pain. CARDIOVASCULAR: No chest pain, palpitations or peripheral edema. GASTROINTESTINAL: No nausea, vomiting, diarrhea, constipation or abdominal pain. GENITOURINARY: No dysuria, frequency or flank pain. HEMATOLOGIC: Positive for easy bruising, but no transfusion reaction. SKIN: No rashes, lesions or wounds. ENDOCRINE: No polydipsia, polyuria or polyphagia. No heat or cold intolerance. NEUROLOGIC: Positive for drooling, slurred speech and weakness, but no syncope or paresthesias. PHYSICAL EXAMINATION: VITAL SIGNS: Blood pressure 126/57. Heart rate 75. Respiratory rate 16. Temperature 97.7. Oxygen saturation 100%. GENERAL: Ms. Martínez is an 89-year-old female in no active distress currently. NEUROLOGIC: The patient is alert and oriented. LUNGS: Clear to auscultation bilaterally. CARDIOVASCULAR: Regular rate and rhythm. Normal S1, S2. ABDOMEN: Soft. Positive bowel sounds. GENITOURINARY: Deferred. EXTREMITIES: Lower extremities with no edema. LABORATORY: Labs are reviewed and are unremarkable. RADIOLOGY: CT scan is as above. ASSESSMENT: 1. Altered mental status with slurred speech, which is now resolved. 2. Likely transient ischemic attack. 3. Chronic obstructive pulmonary disease with no exacerbation. 4. History of atrial fibrillation with a controlled rate on anticoagulation. 5. Peripheral vascular disease. 6. Hypertension, which is controlled. 7. History of heart failure with no exacerbation. PLAN: The patient will be admitted for neurologic checks. A pretty complete workup was done last time including MRI which did not show any strokes. She does have weakness and has been suggested she got to rehab by Dr. Brown. I did speak with him this morning and we will actually go ahead with an [facility] evaluation. They have accepted her, and we will transfer as soon as transportation is available. Medications will be continued as well. #[id number] [facility]
[2019-04-22 15:44] VITALS: BP 120/76; TEMP 97.1
== END 2019-04-22 17:55 ==
LOC: ER 21:33 → MS 04-22 00:44
PROVIDERS: ADMIT Nurse Practitioner; ATTEND Nurse Practitioner
DX: R41.82 Altered mental status, unspecified (principal); R47.81 Slurred speech; J44.9 Chronic obstructive pulmonary disease, unspecified; I48.91 Unspecified atrial fibrillation; I73.9 Peripheral vascular disease, unspecified; I11.0 Hypertensive heart disease with heart failure; I50.32 Chronic diastolic (congestive) heart failure; R53.1 Weakness; I44.0 Atrioventricular block, first degree; M81.0 Age-related osteoporosis without current pathological fracture; K21.9 Gastro-esophageal reflux disease without esophagitis; Z79.01 Long term (current) use of anticoagulants; Z79.899 Other long term (current) drug therapy; Z85.118 Personal history of other malignant neoplasm of bronchus and lung; Z90.2 Acquired absence of lung [part of]; Z88.2 Allergy status to sulfonamides; Z88.3 Allergy status to other anti-infective agents; Z88.6 Allergy status to analgesic agent; Z88.8 Allergy status to other drugs, medicaments and biological substances; Z87.891 Personal history of nicotine dependence; Z90.49 Acquired absence of other specified parts of digestive tract; Z90.710 Acquired absence of both cervix and uterus; Z82.49 Family history of ischemic heart disease and other diseases of the circulatory system; Z80.41 Family history of malignant neoplasm of ovary; Z80.42 Family history of malignant neoplasm of prostate
CPT/HCPCS: 82553; 80053; 36415; 81001; 85025; 82550; 83735; 85730; 85610; 84443; 84484; 83880; 83605; 74019; 70450; G8978; G8979; 97162; 99285; 93005; G0378

== ENCOUNTER → 2019-07-28 | Outpatient (CLI) | payer MEDICARE, OTHER | LOC: BFHH 17:15 | PROVIDERS: ATTEND Family Medicine | DX: R30.0 Dysuria (principal); R35.0 Frequency of micturition ==

== ENCOUNTER 2019-08-02 15:32 | Inpatient (IN) | payer MEDICARE, OTHER ==
[2019-08-02] MEDS ORDERED: SODIUM CHLORIDE 0.9% (FLUSH) 10 ML SYG IV PRN ×2 (15:35→21:09)
--- NOTE | 2019-08-02 15:37 | ED.PDOC ---
History of Present Illness - General Time Seen by Provider: 08/02/19 15:35 Source: patient - History of Present Illness Initial Comments: 89 yo female with PMH of HTN, CHF, COPD, a-fib, hx of CVA, dementia who is bib EMS from [facility] for cc of cough and dyspnea. Original EMS call was for nosebleed which lasted for several minutes but was resolved prior to EMS arrival and has not recurred. However, [place] reports pt has been having worsening cough, d ypsnea, and fever for 3-4 days now. Pt with hx of CVA and dementia and hx is very limited. Able to answer only some simple yes/no questions. Reports she is short of breath, coughing, and having fevers. Denies any chest pain, abd pain, n/v/d, urinary sx's. Reports some moderate swelling in both legs. EMS reported initial SpO2 of 89% on room air on arrival and gave 1 Duonebs en route. Here im proved to 92% on room air. Allergies/Adverse Reactions: Allergies Fluticasone [From Advair Diskus] Allergy (Verified 04/17/19 07:13) Macrolides and Ketolides Allergy (Verified 04/17/19 07:13) Milk Protein Extract [From Advair Diskus] Allergy (Verified 04/17/19 07:13) Salmeterol [From Advair Diskus] Allergy (Verified 04/17/19 07:13) Sulfa Antibiotics Allergy (Verified 04/17/19 07:13) Sulfacetamide [From Sulfacet-R] Allergy (Verified 04/17/19 07:13) Sulfur [From Sulfacet-R] Allergy (Verified 04/17/19 07:13) Lorazepam [From Ativan] Adverse Reaction (Unknown, Verified 04/17/19 07:13) Other Makes her mean Aspirin Adverse Reaction (Verified 10/11/18 10:11) Celecoxib [From Celebrex] Adverse Reaction (Verified 04/17/19 07:13) Morphine Adverse Reaction (Verified 04/17/19 07:13) Other Home Medications: Ambulatory Orders Estradiol 0.5 mg PO DAILY 10/25/15 [place]-3 Fatty Acids [[place] Oil-1000 200 mg] 1 cap PO DAILY 10/27/15 Apixaban [Eliquis] 2.5 mg PO BID #60 tab 10/29/15 Tramadol HCl 25 mg PO BEDTIME PRN 04/01/16 Trolamine Salicylate [Aspercreme Nighttime] 10 % EX Q6HR PRN 07/27/17 Docusate Sodium 100 mg PO BID PRN 10/11/18 Flecainide Acetate 100 mg PO BID 10/11/18 guaiFENesin ER TAB [Mucinex Tab] 600 mg PO BID PRN 10/11/18 Acetaminophen Arthritis [Tylenol Arthritis Pain] 650 mg PO Q6HR PRN 04/17/19 Lqpzeeretkb-Uvunfjcnazfg-Oryap [Trelegy Ellipta 100-62.5-25 Mcg/INH] 1 aer INH DAILY 04/17/19 Furosemide [Lasix] 20 mg PO DAILY PRN 04/17/19 Furosemide [Lasix] 20 mg PO NOON PRN 04/17/19 Nystatin (Topical) [Nystop] 100,000 unit TOP Q6HR PRN 04/17/19 Polyethy-Prop Glycol Ophth [Systane Ophth] 2 drop BOTH_EYES PRN PRN 04/17/19 Sumatriptan Succinate [Imitrex] 50 mg PO DAILY PRN 04/17/19 Atorvastatin Calcium [Lipitor] 20 mg PO DAILY #30 tab 04/18/19 Acetaminophen [Tylenol] 500 mg PO Q6H PRN tab 04/22/19 Albuterol Sulfate [Albuterol Sulfate Hfa] 90 mcg IN Q4HR PRN 04/22/19 Calcium + D3 600-200 mg-Unit 1 tablet PO DAILY 04/22/19 Cholecalciferol [Vitamin D3] 1,000 unit PO DAILY 04/22/19 Toprol Xl 25 mg PO DAILY 04/22/19 Review of Systems - Review of Systems Review of Systems: 08/02/19 15:53 as per HPI All other Systems: Reviewed and Negative Past Medical History (General) - Patient Medical History Hx Seizures: No Hx Stroke: No Hx Dementia: No Hx Asthma: No Hx of COPD: Yes Hx Cardiac Disorders: Yes - A-Fib, tachycardia, Hx Congestive Heart Failure: Yes Hx Pacemaker: No Hx Hypertension: Yes Hx Thyroid Disease: No Hx Diabetes: No Hx Gastroesophageal Reflux: Yes Hx Renal Disease: No Hx Cancer: Yes - lung Hx of HIV: No Hx Hepatitis C: No Hx MRSA: No - Vaccination History Hx Tetanus, Diphtheria Vaccination: - unknown Hx Influenza Vaccination: Yes - 2017 Hx Pneumococcal Vaccination: Yes - Social History Hx Tobacco Use: Yes - Quit 1997 Hx Chewing Tobacco Use: No Hx Alcohol Use: No Hx Substance Use: No Hx Substance Use Treatment: No Hx Depression: No Hx Physical Abuse: No Hx Emotional Abuse: No Hx Suspected Abuse: No - Female History Patient : No Family Medical History - Family History Father Family History: Unknown Living Status: Hx Family Asthma: No Hx Family Congestive Heart Failure: Yes Hx Family Hypertension: Yes Hx Family Stroke: No Hx Cardiac Disease: Yes Hx Family Diabetes: No Hx Family Cancer: Yes - mom-ovarian;prostate-ddad Physical Exam - Physical Exam General Appearance: Alert, Comfortable, No apparent distress Eye Exam: bilateral normal Ears, Nose, Throat: normal ENT inspection, normal pharynx, other - false teeth in place Neck: non-tender, full range of motion, supple, normal inspection Respiratory: chest non-tender, other - diminished breath sounds throughout left side, wet crackles on right side, worse at lung base Cardiovascular/Chest: normal peripheral pulses, no murmur, tachycardia, other - 1+ BL LE pitting edema Peripheral Pulses: radial,right: 2+, radial,left: 2+ Gastrointestinal/Abdominal: non tender, soft, no organomegaly Back Exam: normal inspection, no CVA tenderness, no vertebral tenderness Extremity: normal range of motion, non-tender, no calf tenderness Neurologic: associate curator II-XII nml as tested, no motor/sensory deficits, alert Skin Exam: normal color, warm/dry Progress - Progress Progress: 08/02/19 15:55 Cough, dypsnea, fever -consider flu vs URI vs PNA vs CHF vs COPD vs ACS vs PE vs multifactorial -obtain cardiac work-up, lactate, blood cx's, labs -CXR -Duonebs, reassess Epistaxis -seems controlled with pressure alone at [place], continue to monitor -check CBC 08/02/19 16:31 -Flu testing neg. WBC 16,900 with 78% segs and no bands, lactate 1.0. T bili 1.6 but on chart review has also been elevated as high as 1.8 at times in the past - suspect possibly 2/2 hepatic congestion from CHF. Na 130, K 4.2, BUN 14, Cr 0.5. BNP 181, Trop wnl. Remainder of labs pretty unremarkable. -suspect likely viral URI with acute on chronic COPD exacerbation. Will give NS 500 cc bolus and Solumedrol 80 mg IV. Consult hospitalist for admission. 08/02/19 17:24 -Pt's son and caregiver now at bedside and provide further hx, which was previously not reported. Her son states she was able to stand and ambulate with 4-point walker yesterday with assistance but when he saw her this morning she was having marked difficulty even standing with some aid. Pt denies any focal weakness or numbness. She reports hx of CVA in the past with residual left- sided weakness. Denies any new sx's to her. -reports feeling moderately improved and wants to go back to [place]. She is maintaining 97% SpO2 on 3 L by [place] - reports on 2 L continuous O2 by [place] at [place]. -Given new information of trouble standing which began this morning (last known normal yesterday evening it appears), will obtain stat CT head without IV contrast to evaluate for possible stroke. However, I suspect pt is likely generally weak from her acute illness as I appreciate no new focal neuro deficits on my exam of her. If CT head is negative, will likely admit for acute on chronic COPD exacerbation with hypoxia. 08/02/19 18:14 -CT head is negative for acute processes, report called to me verbally by reading radiologist. -Spoke with Gena Raygoza, who accepts for admission for acute on chronic COPD exacerbation. Discussed I suspect viral etiology and no Abx given at this point. Sanket Sawyer MD Billing #[id number] - EKG/XRAY/CT EKG: Sinus - Sinus tach, HR 105, no ST elevations, q waves noted in anteroseptal leads, axis and intervals normal, compared to 05/01/19 EKG sinus tach appears new but otherwise unchanged Departure - Departure Clinical Impression: Acute exacerbation of chronic obstructive pulmonary disease (COPD) Upper respiratory infection Qualifiers: URI type: unspecified URI Qualified Code(s): J06.9 - Acute upper respiratory infection, unspecified Time of Disposition: 18:18 Disposition: Admit Patient Condition: Fair Referrals: Bora Brown MD [Primary Care Provider] - 1-2 Weeks Home Medications: Ambulatory Orders Estradiol 0.5 mg PO DAILY 10/25/15 [place]-3 Fatty Acids [[place] Oil-1000 200 mg] 1 cap PO DAILY 10/27/15 Apixaban [Eliquis] 2.5 mg PO BID #60 tab 10/29/15 Tramadol HCl 25 mg PO BEDTIME PRN 04/01/16 Trolamine Salicylate [Aspercreme Nighttime] 10 % EX Q6HR PRN 07/27/17 Docusate Sodium 100 mg PO BID PRN 10/11/18 Flecainide Acetate 100 mg PO BID 10/11/18 guaiFENesin ER TAB [Mucinex Tab] 600 mg PO BID PRN 10/11/18 Acetaminophen Arthritis [Tylenol Arthritis Pain] 650 mg PO Q6HR PRN 04/17/19 Cagszkbltjp-Qemtfgnguonk-Dbact [Trelegy Ellipta 100-62.5-25 Mcg/INH] 1 aer INH DAILY 04/17/19 Furosemide [Lasix] 20 mg PO DAILY PRN 04/17/19 Furosemide [Lasix] 20 mg PO NOON PRN 04/17/19 Nystatin (Topical) [Nystop] 100,000 unit TOP Q6HR PRN 04/17/19 Polyethy-Prop Glycol Ophth [Systane Ophth] 2 drop BOTH_EYES PRN PRN 04/17/19 Sumatriptan Succinate [Imitrex] 50 mg PO DAILY PRN 04/17/19 Atorvastatin Calcium [Lipitor] 20 mg PO DAILY #30 tab 04/18/19 Acetaminophen [Tylenol] 500 mg PO Q6H PRN tab 04/22/19 Albuterol Sulfate [Albuterol Sulfate Hfa] 90 mcg IN Q4HR PRN 04/22/19 Calcium + D3 600-200 mg-Unit 1 tablet PO DAILY 04/22/19 Cholecalciferol [Vitamin D3] 1,000 unit PO DAILY 04/22/19 Toprol Xl 25 mg PO DAILY 04/22/19 Decision To Admit - Decistion To Admit Decision to Admit Reason: Admit from ER Decision to Admit Date: 08/02/19 Decision to Admit Time: 18:19
[2019-08-02] MEDS ORDERED: IPRATROPIUM/ALBUTEROL 3 ML VIAL NEB ONE ×2 (15:47→17:28)
--- NOTE | 2019-08-02 16:02 | RAD ---
EXAM: XR Chest, 1 View CLINICAL HISTORY: dyspnea, fever TECHNIQUE: Frontal view of the chest. COMPARISON: 04/17/2019 FINDINGS: Lungs: Postoperative changes partial right lung resection with stable apical and perihilar scarring. Pleural space: Unremarkable. No pneumothorax. Heart: Unremarkable. No cardiomegaly. Mediastinum: Unremarkable. Bones/joints: Unremarkable. IMPRESSION: No acute findings in the chest. Stable chronic changes. Electronically signed by: Mary Garnett MD 08/02/2019 4:00 PM BUILDING SERVICE WORKER
[2019-08-02] MEDS ORDERED: ACETAMINOPHEN 325 MG TAB PO ONE (16:05)
[2019-08-02] MEDS ORDERED: SODIUM CHLORIDE 0.9% 500ML 500 ML IVS ONE (16:30)
[2019-08-02] MEDS ORDERED: methylPREDNISolone SODIUM SUC 125 MG/2 ML VIAL IV ONE (16:34)
--- NOTE | 2019-08-02 18:04 | CT ---
EXAM: CT head CLINICAL INDICATION: Lower extremity weakness COMPARISON: 04/21/2019 TECHNIQUE: The CT scan was done using contiguous axial 2.5 mm sections through the brain. This exam was performed according to our departmental dose-optimization program, which includes automated exposure control, adjustment of the mA and/or kV according to patient size and/or use of iterative reconstruction technique. FINDINGS: There is no midline shift, mass effect, or extraaxial fluid collection. There is no evidence of acute intracranial hemorrhage, mass lesion, or cerebral edema. Mild diffuse atrophy and nonspecific chronic ischemic changes are identified. Bone window images reveal no evidence of a skull fracture. IMPRESSION: No evidence of an acute intracranial process. I telephoned these findings to Dr. Sawyer at 6:30 PM central time on 08/02/2019. Electronically signed by: Artemio Pritchett MD 08/02/2019 6:03 PM [facility]
--- NOTE | 2019-08-02 18:43 | HP ---
SUPERVISING PHYSICIAN: Qasim Seth MD CHIEF COMPLAINT: Coughing, shortness of breath. HISTORY OF PRESENT ILLNESS: This is an 89 year-old female patient who lives at [facility]. She has had an increased cough and shortness of breath over the last several days. EMS was originally called because her nose was bleeding but by the time they arrived it had resolved and she complained of shortness of breath with a productive cough and they brought her in due to her oxygen saturation being in the upper 80S. In the Emergency Room and they gave her 3 to 4 nebulizer treatments. Her initial vital signs were temperature of 102.2, heart rate 101, blood pressure 148/75, respiratory rate 20 to 24. Her oxygen saturation on room air was in the upper 80s. Once they placed her on oxygen per nasal cannula her oxygen saturation was 94 to 95%. Her influenza for A and B per PCR were done and they were both negative. Labs were done. Her WBCs were 16,900, hemoglobin 15.6, hematocrit 45.2. She had a left shift on her differential. Sodium was low at 133, potassium 4.2, chloride 92. BUN 14, creatinine 0.57, lactic acid 1, total bilirubin 1.6. Urinalysis showed 250 urine glucose and a trace of lysed urine blood. Blood cultures were drawn. Chest x-ray was completed and showed no acute findings in the chest with stable chronic changes. There was also question of some confusion and altered mental status so a head CT was done and showed no evidence of acute intracranial process. She was given fluids and breathing treatments as well as a dose of Solu-Medrol and I was called for hospital admission. PAST MEDICAL HISTORY: 1. Chronic obstructive pulmonary disease. 2. Peripheral vascular disease. 3. Atrial fibrillation on metoprolol and Eliquis. 4. Hypertension. 5. Osteoporosis. 6. History of lung cancer with right upper lung resection. 7. History of migraine headaches. 8. Atrial fibrillation with diastolic etiology. Her last echocardiogram was in 2006 and showed 55% ejection fraction. 9. Recent CVA with a very minimal right-sided residual weakness. PAST SURGICAL HISTORY: 1. Appendectomy. 2. Hysterectomy. 3. Right upper lobe lung resection secondary to lung cancer. 4. Bladder suspension. 5. Cataract removal. CURRENT MEDICATIONS: Per the EMR and awaiting verification. ALLERGIES: FLUTICASONE, MACROLIDES, SULFA, CLONAZEPAM, ASPIRIN, CELEBREX, MORPHINE. FAMILY HISTORY: SOCIAL HISTORY: She lives in [facility], she is . She quit smoking about 21 years ago. She denies any alcohol or illicit drug use. REVIEW OF SYSTEMS: GENERAL: Positive for fatigue and subjective fever, negative for weight changes. HEENT: Positive for nasal congestion or sinus symptoms. Negative for ear pain, vision changes or sore throat. RESPIRATORY: As per history of present illness. CARDIAC: Negative for chest pain, palpitations, tachycardia. GI: Negative for nausea, vomiting or diarrhea or constipation. GENITOURINARY: Negative for hematuria, dysuria, polyuria. SKIN: Negative for lesions or rashes. NEUROLOGICAL: Positive for recent CVA in April of 2019. Negative for headaches, dizziness or seizures. PHYSICAL EXAMINATION: VITAL SIGNS: Temperature 98.5, heart rate 87, blood pressure 99/55, respiratory rate 20, oxygen saturation 97% on 2 liters nasal cannula. GENERAL: This is an 89 year-old female patient who is sitting up in her hospital bed. She is in no acute distress, although she is in some mild respiratory distress. HEENT: Normocephalic and atraumatic. Pupils are equal and reactive. Oropharynx is clear. NECK: Supple without mass. CHEST: Diminished breath sounds throughout with a few scattered expiratory wheezing. There is equal rise and fall of the chest with inspiration and expiration. CARDIOVASCULAR: Regular rate, irregular rhythm. Atrial fibrillation with a controlled rate on the senior litigation paralegal. She is slightly tachypneic and she can only speak in 2 to 3 word phrases due to her shortness of breath. ABDOMEN: Soft, nondistended, non-tender. Bowel sounds are positive. EXTREMITIES: No cyanosis, clubbing, or edema. SKIN: Warm and dry. NEUROLOGIC: She is awake, alert and oriented x3. Cranial nerves II through XII are grossly intact as tested. Her hand tree fruit and nut farming supervisor are almost equal. Her right direct mail coordinator is slightly less strong than her left direct mail coordinator. There is no facial droop. Labs and films are as per the history of present illness. ASSESSMENT: 1. Exacerbation of chronic obstructive pulmonary disease with concerns of sepsis with admitting temperature of 102.2, WBCs of 16.9, respiratory rate 30, blood pressure 99/55 and her oxygen saturation in the upper 80s. 2. Recent CVA in April 2019. 3. History of atrial fibrillation on Eliquis and metoprolol. She is in a controlled rate. 4. Hypertension, on medication. 5. History of lung cancer with a right upper lobe resection. 6. Congestive heart failure without acute exacerbation. PLAN: The patient has been admitted to the hospital. She will have aggressive pulmonary hygiene including p.r.n. and scheduled nebulizer treatments. I started her on Levaquin and will monitor her cultures as they become available. She will also be on the cardiac minute monitor and her home medications will be restarted as soon as they are verified. Eliquis will be sufficient for DVT prophylaxis. We will continue to monitor and follow as needed. #[id number] [facility]
[2019-08-02] MEDS ORDERED: NYSTATIN POWDER 15GM BTTL TOP PRN (21:04)
[2019-08-02] MEDS ORDERED: traMADol HCL 50 MG TAB PO PRN (21:04)
[2019-08-02] MEDS ORDERED: SODIUM CHLORIDE 0.9% 1000ML 1,000 ML IVS ONE (21:09)
[2019-08-02] MEDS ORDERED: ONDANSETRON INJ 4 MG/2 ML VIAL IV PRN (21:09)
[2019-08-02] MEDS ORDERED: IPRATROPIUM/ALBUTEROL 3 ML VIAL NEB PRN (21:09)
[2019-08-02] MEDS ORDERED: NON-FORMULARY MEDICATION 1 EA MIS (Apixaban [Eliquis] 2.5 MG) PO SCH (21:15)
[2019-08-02] MEDS ORDERED: FLECAINIDE ACETATE 100 MG PO SCH (21:15)
[2019-08-02] MEDS ORDERED: FLECAINIDE 50 MG TAB PO ONE (21:38)
[2019-08-02] MEDS ORDERED: levoFLOXacin 500MG IV 100 ML IVPB ONE (21:38)
[2019-08-02] MEDS ORDERED: APIXABAN 5 MG TAB PO ONE (21:38)
[2019-08-02] MEDS: levoFLOXacin 500MG IV 500 MG in PREMIX BAG 1 BAG IVPB SCH (21:45)
[2019-08-02] MEDS: IV SET AND CAP CHANGE INJ INJ SCH (21:50)
--- NOTE | 2019-08-03 07:05 | RAD ---
EXAM: XR Chest, 1 View CLINICAL HISTORY: The patient is 89 years old and is Female; Pneumonia TECHNIQUE: Frontal view of the chest. COMPARISON: Chest radiograph from 08/02/2019 FINDINGS: LUNGS: Scarring and volume loss again noted in the right upper lung. Surgical clips project over the right perihilar region. The lungs are otherwise clear. No consolidation visualized. PLEURAL SPACE: Unremarkable. No pneumothorax. HEART: No significant enlargement of the cardiac silhouette. MEDIASTINUM: Unremarkable. BONES/JOINTS: No acute osseous findings. VASCULATURE: Atherosclerotic calcifications are visualized within the aorta. IMPRESSION: No acute findings visualized in the chest. Electronically signed by: Priti Pryor MD 08/03/2019 7:02 AM [facility]
[2019-08-03] MEDS ORDERED: FLECAINIDE 50 MG TAB PO ONE (07:47)
[2019-08-03] MEDS ORDERED: ESTRADIOL TAB 1 MG PO ONE (07:48)
[2019-08-03] MEDS ORDERED: APIXABAN 5 MG TAB PO ONE (07:48)
[2019-08-03] MEDS ORDERED: METOPROLOL SUCCINATE XL 25 MG TAB PO ONE (07:48)
[2019-08-03] MEDS: METOPROLOL SUCCINATE XL 25 MG TAB PO SCH (08:14)
[2019-08-03] MEDS: ESTRADIOL TAB 1 MG PO SCH (08:14)
[2019-08-03] MEDS: APIXABAN 5 MG TAB PO SCH ×2 (08:14→20:50)
[2019-08-03] MEDS: FLECAINIDE 50 MG TAB PO SCH ×2 (08:15→20:52)
[2019-08-03] MEDS: SODIUM CHLORIDE 0.9% (FLUSH) 10 ML SYG IV SCH ×2 (08:16→20:53)
[2019-08-03] MEDS: IPRATROPIUM/ALBUTEROL 3 ML VIAL NEB SCH ×4 (08:31→23:05)
[2019-08-03] MEDS ORDERED: NON-FORMULARY MEDICATION 1 EA MIS (Fluticasone-Umeclidinium-Vilan [Trelegy Ellipta 100-62. INH SCH (09:00)
[2019-08-03] MEDS: methylPREDNISolone SODIUM SUC 40 MG/ML VIAL IV SCH ×2 (09:30→20:52)
[2019-08-03] MEDS: [UNRECOGNIZED DRUG - OTHER] INH SCH (13:08)
[2019-08-03] MEDS: VILANTEROL INH SCH (13:08)
[2019-08-03] MEDS: UMECLIDINIUM INH SCH (13:08)
[2019-08-03] MEDS ORDERED: PHENOL THROAT SPRAY 180 ML BTTL MT PRN (19:47)
[2019-08-03] MEDS ORDERED: levoFLOXacin 500MG IV 100 ML IVPB ONE (20:30)
[2019-08-03] MEDS: ATORVASTATIN 20 MG TAB PO SCH (20:51)
[2019-08-03] MEDS: levoFLOXacin 500MG IV 500 MG in PREMIX BAG 1 BAG IVPB SCH (21:35)
[2019-08-04] MEDS ORDERED: PANTOPRAZOLE SODIUM IV 40 MG VIAL ONE (04:26)
--- NOTE | 2019-08-04 08:10 | PN ---
DATE: 08/03/19 SUPERVISING PHYSICIAN: Qasim Seth MD SUBJECTIVE: The patient is sitting up in her bed. She feels less short of breath than she did yesterday. She has no complaints of chest pain, nausea or vomiting. OBJECTIVE: VITAL SIGNS: Temperature 98.5, heart rate 95, blood pressure 124/82, respiratory rate 20, oxygen saturation 96% on 2 liters nasal cannula. RESPIRATORY: Diminished breath sounds throughout. She does have some expiratory wheezing in the apices. CARDIAC: Regular rate and rhythm. ABDOMEN: Soft, nondistended, non-tender. Bowel sounds are positive. NEURO: She is awake, alert, and oriented x3. LABORATORY: WBCs 15,000, hemoglobin 14, hematocrit 42.4. She has a left shift on her differential. Sodium is improved to 133 with a coag of 99. Her preliminary blood cultures show no growth after 24 hours. Chest x-ray shows no acute findings visualized in the chest. All other labs and films have been reviewed via the EMR. ASSESSMENT: 1. Exacerbation of chronic obstructive pulmonary disease with concerns of sepsis with admitting temperature of 102.2, WBCs of 16.9, respiratory rate 30, blood pressure 99/55 and her oxygen saturation in the upper 80s. 2. Recent CVA in April 2019. 3. History of atrial fibrillation on Eliquis and metoprolol. She is in a controlled rate. 4. Hypertension, on medication. 5. History of lung cancer with a right upper lobe resection. 6. Congestive heart failure without acute exacerbation. PLAN: We will continue present supportive care. I have continued her steroids every 12 hours and hopefully they can be tapered down and changed to p.o. in the next 24 to 48 hours. Will get aggressive pulmonary hygiene, I have ordered lab for in the morning. Her home medications were verified and restarted. We will continue to monitor closely and follow as needed. #[id number] [facility]
[2019-08-04] MEDS: UMECLIDINIUM INH SCH (08:30)
[2019-08-04] MEDS: [UNRECOGNIZED DRUG - OTHER] INH SCH (08:30)
[2019-08-04] MEDS: VILANTEROL INH SCH (08:30)
[2019-08-04] MEDS: IPRATROPIUM/ALBUTEROL 3 ML VIAL NEB SCH ×2 (08:30→08:43)
[2019-08-04] MEDS ORDERED: LEVALBUTEROL NEBS 1.25 MG/3 ML VIAL NEB PRN (08:46)
[2019-08-04] MEDS: LEVALBUTEROL NEBS 1.25 MG/3 ML VIAL NEB SCH ×2 (09:08→16:30)
[2019-08-04] MEDS: APIXABAN 5 MG TAB PO SCH ×2 (09:26→20:29)
[2019-08-04] MEDS: methylPREDNISolone SODIUM SUC 40 MG/ML VIAL IV SCH ×2 (09:26→20:28)
[2019-08-04] MEDS: FLECAINIDE 50 MG TAB PO SCH ×2 (09:26→20:29)
[2019-08-04] MEDS: ESTRADIOL TAB 1 MG PO SCH (09:26)
[2019-08-04] MEDS: SODIUM CHLORIDE 0.9% (FLUSH) 10 ML SYG IV SCH ×2 (09:27→20:28)
[2019-08-04] MEDS: METOPROLOL SUCCINATE XL 25 MG TAB PO SCH (09:27)
--- NOTE | 2019-08-04 15:51 | PN ---
DATE: 08/04/19 SUPERVISING PHYSICIAN: Fer Silveira MD SUBJECTIVE: The patient is a little anxious. She notes she doesn't feel like she is breathing as well as she has been in the last 24 hours. She reports that she has only had 2 hours of sleep and feels like the albuterol is making severely anxious. She denied chest pain, nausea or vomiting or diarrhea. OBJECTIVE: VITAL SIGNS: Temperature 97.6, heart rate 87, blood pressure 103/64, respiratory rate 18, oxygen saturation 97% on 2 liter nasal cannula. Weight 59.9 kg. GENERAL: The patient is obviously anxious. She just finished a breathing treatment. She does visibly look short of breath. She is alert. CHEST: Lung sounds are diminished throughout with continued expiratory wheezing in the upper apices.. CARDIAC: Regular rate and rhythm. ABDOMEN: Soft, non-tender. Bowel sounds are positive. EXTREMITIES: Without edema. NEURO: She is alert and oriented x3. LABORATORY: White count has shown an increase in leukocytosis at 19,300, hemoglobin 14.3, hematocrit 42.8, platelet count 205,000. Differential does show a left shift. Blood gases are pending. Chemistries shows normal sodium and potassium, carbon dioxide 23, anion gap slightly elevated at 18.4, BUN 14, creatinine 0.54, blood sugar 209. Liver functions all within normal limits. MICROBIOLOGY: Blood cultures remain negative at 24 hours. RADIOLOGY: No additional radiographic studies this morning. ASSESSMENT: 1. Acute exacerbation of chronic obstructive pulmonary disease. 2. Sepsis secondary to #1 with increasing leukocytosis secondary to #1 and exacerbated by clinical steroids. 3. History of recent CVA in April 2019. 4. Chronic atrial fibrillation on Eliquis and metoprolol with a controlled ventricular rate. 5. Hypertension, stable. . 6. History of lung cancer with a right upper lobe resection. 7. Congestive heart failure without signs of exacerbation. PLAN: We will get an ABG this morning given her respiratory effort and see if maybe she would benefit from some BiPAP. Given that she continues to have extensive wheezing, we will continue with Solu-Medrol every 12 hours and hopefully be able to transition her to p.o. in the morning. Will order lab for in the morning to include a CBC and repeat a chest x-ray. I anticipate discharge within the next 24 to 48 hours. Until the, we will continue to monitor and treat as needed. #[id number] [facility]
[2019-08-04] MEDS ORDERED: levoFLOXacin 500MG IV 100 ML IVPB ONE (19:08)
[2019-08-04] MEDS: ATORVASTATIN 20 MG TAB PO SCH (20:29)
[2019-08-04] MEDS: levoFLOXacin 500MG IV 500 MG in PREMIX BAG 1 BAG IVPB SCH (20:42)
[2019-08-05] MEDS: LEVALBUTEROL NEBS 1.25 MG/3 ML VIAL NEB SCH ×3 (00:07→16:35)
--- NOTE | 2019-08-05 07:08 | RAD ---
EXAM: XR Chest, 1 View CLINICAL HISTORY: copd exacerbation TECHNIQUE: Frontal view of the chest. COMPARISON: 08/03/2019. FINDINGS: Lungs: Stable postoperative changes partial right lung resection. Pleural space: Unremarkable. No pneumothorax. Heart: Unremarkable. No cardiomegaly. Mediastinum: Unremarkable. Bones/joints: Unremarkable. IMPRESSION: Stable chronic changes. No acute disease. Electronically signed by: Mary Garnett MD 08/05/2019 7:06 AM [employer]
[2019-08-05] MEDS: [UNRECOGNIZED DRUG - OTHER] INH SCH (08:38)
[2019-08-05] MEDS: UMECLIDINIUM INH SCH (08:38)
[2019-08-05] MEDS: VILANTEROL INH SCH (08:38)
[2019-08-05] MEDS: APIXABAN 5 MG TAB PO SCH ×2 (09:06→21:10)
[2019-08-05] MEDS: FLECAINIDE 50 MG TAB PO SCH ×2 (09:06→21:10)
[2019-08-05] MEDS: ESTRADIOL TAB 1 MG PO SCH (09:07)
[2019-08-05] MEDS: METOPROLOL SUCCINATE XL 25 MG TAB PO SCH (09:07)
[2019-08-05] MEDS: predniSONE 20 MG TAB PO SCH (09:47)
[2019-08-05] MEDS: SODIUM CHLORIDE 0.9% (FLUSH) 10 ML SYG IV SCH ×2 (09:47→21:12)
[2019-08-05] MEDS: methylPREDNISolone SODIUM SUC 40 MG/ML VIAL IV SCH (09:49)
--- NOTE | 2019-08-05 11:30 | PN ---
SUPERVISING PHYSICIAN: Lindsey Silveira MD DATE: 08/05/19 SUBJECTIVE: The patient is doing much better today, sitting in a bedside chair. She is not anxious. She is not having any shortness of breath. She said she was actually able to sleep through the night. She has had no further complaints. OBJECTIVE: VITAL SIGNS: Temperature 98.0. Pulse 87. Blood pressure 135/80. Respirations 18. Saturation 97% on 2 liters nasal cannula. GENERAL: The patient is resting comfortably, in no acute distress. She is alert. CHEST: Lung sounds are improved compared to yesterday, just diminished towards the bases. No obvious wheezing or rales. CARDIAC: Regular rate and rhythm. ABDOMEN: Soft, nontender. Bowel sounds are positive. EXTREMITIES: Without edema. NEURO: She is alert and oriented x3. LABORATORY: White count is now down to 14,300. Hemoglobin 14.2, hematocrit 42.6, stable, with differential showing a left shift. Chemistries show electrolytes within normal limits. Carbon dioxide 28, BUN 14, creatinine 0.5, calcium 9.1. MICROBIOLOGY: Sputum culture pending. Blood cultures are negative at 48 hours. RADIOLOGY: Chest x-ray this morning per radiologic interpretation of single view chest showed stable chronic changes, no acute disease. ASSESSMENT: 1. Acute exacerbation of chronic obstructive pulmonary disease. 2. Sepsis secondary to #1, improving with steroids and parenteral antibiotic. 3. History of recent cerebrovascular accident in April 2019. 4. Chronic atrial fibrillation on Eliquis and metoprolol with a controlled ventricular rate. 5. Hypertension, stable. 6. History of lung cancer with a right upper lobe resection. 7. Congestive heart failure without signs of exacerbation. PLAN: We will continue with antibiotic therapy as scheduled. We are tapering her steroid dose to oral prednisone today. She is to have an evaluation with [facility]. It is anticipated that if she does well today, she can discharge in the morning if [facility] approves her readmission. We will hold off on labs as they are stable and improving and her x-ray as well as it is stable. Until the patient can transition to outpatient management, we will continue to monitor and treat as needed. #[id number] [facility]
[2019-08-05] MEDS ORDERED: levoFLOXacin 500MG IV 100 ML IVPB ONE (20:42)
[2019-08-05] MEDS: ATORVASTATIN 20 MG TAB PO SCH (21:11)
[2019-08-05] MEDS: IV SET AND CAP CHANGE INJ INJ SCH (21:13)
[2019-08-05] MEDS: levoFLOXacin 500MG IV 500 MG in PREMIX BAG 1 BAG IVPB SCH (21:13)
[2019-08-06] MEDS: LEVALBUTEROL NEBS 1.25 MG/3 ML VIAL NEB SCH ×2 (00:16→08:40)
[2019-08-06] MEDS: UMECLIDINIUM INH SCH (08:40)
[2019-08-06] MEDS: VILANTEROL INH SCH (08:40)
[2019-08-06] MEDS: [UNRECOGNIZED DRUG - OTHER] INH SCH (08:40)
[2019-08-06] MEDS: APIXABAN 5 MG TAB PO SCH (09:38)
[2019-08-06] MEDS: METOPROLOL SUCCINATE XL 25 MG TAB PO SCH (09:38)
[2019-08-06] MEDS: SODIUM CHLORIDE 0.9% (FLUSH) 10 ML SYG IV SCH (09:38)
[2019-08-06] MEDS: FLECAINIDE 50 MG TAB PO SCH (09:38)
[2019-08-06] MEDS: predniSONE 20 MG TAB PO SCH (09:39)
[2019-08-06] MEDS: ESTRADIOL TAB 1 MG PO SCH (09:39)
[2019-08-06 09:47] VITALS: BP 103/65; TEMP 97.6; O2SAT 97
--- NOTE | 2019-08-06 11:15 | DS ---
SUPERVISING PHYSICIAN: Lindsey Silveira MD ADMISSION DIAGNOSIS: 1. Acute exacerbation of chronic obstructive pulmonary disease with concerns for sepsis given the temperature of 102.2 and leukocytosis. 2. Recent cerebrovascular accident in April of 2019. 3. History of atrial fibrillation on Eliquis and metoprolol. 4. Hypertension. 5. History of lung cancer with a right upper lobe lobectomy. 6. Congestive heart failure without an acute exacerbation. DISCHARGE DIAGNOSIS: 1. Acute exacerbation of chronic obstructive pulmonary disease. 2. Sepsis secondary to acute on chronic bronchitis. 3. History of cerebrovascular accident. 4. Chronic atrial fibrillation with a controlled ventricular rate on Eliquis and metoprolol. 5. Hypertension, stable. 6. History of lung cancer with a right upper lobe lobectomy. 7. Congestive heart failure without an acute exacerbation. HOSPITAL COURSE: This is an 89-year-old female who is a resident of [facility]. She had increased cough and shortness of breath several days prior to the Emergency Room visit. She also had some epistaxis, but had spontaneously resolved. In the Emergency Room, she was found to have some hypoxia and was placed on O2. She does utilize oxygen at night at [facility]. She does have advanced COPD as well. She was noted to have a negative flu screen, but she did have leukocytosis and a fever of 102.2. Therefore, she was referred for admission. On admission, she was placed on Levaquin, nebulizers as well as steroids. The patient stepwise improved on antibiotics and steroids. She has been wearing oxygen pretty much continuously since she has been here. Today, on day of discharge, the patient is alert and oriented. She is not having any problems breathing. I did ask her about the oxygen she wears and she said she wears it at night. I did take the oxygen off of her and ambulated her and she did desaturate while walking. My recommendation is for her to wear oxygen continuously. I have written for DuoNeb to be given 3 times a day at [facility] along with a prescription for Levaquin and a tapering dose of prednisone. The patient can followup with Dr. Brown as an outpatient in 1 to 2 weeks. Her diet is per her normal diet. Activity is as tolerated. #[id number] [facility]
== END 2019-08-06 11:15 | DRG 872 ==
LOC: ER 15:32 → MS 18:41 → OBSVTOIN 18:41
PROVIDERS: ADMIT Family Medicine; ATTEND Nurse Practitioner Acute Care
DX: A41.9 Sepsis, unspecified organism (principal); J44.1 Chronic obstructive pulmonary disease with (acute) exacerbation; J44.0 Chronic obstructive pulmonary disease with (acute) lower respiratory infection; I48.20 Chronic atrial fibrillation, unspecified; J20.9 Acute bronchitis, unspecified; I11.0 Hypertensive heart disease with heart failure; I50.9 Heart failure, unspecified; R09.02 Hypoxemia; F41.9 Anxiety disorder, unspecified; M81.0 Age-related osteoporosis without current pathological fracture; I73.9 Peripheral vascular disease, unspecified; Z85.118 Personal history of other malignant neoplasm of bronchus and lung; Z86.73 Personal history of transient ischemic attack (TIA), and cerebral infarction without residual deficits; Z90.2 Acquired absence of lung [part of]; Z79.01 Long term (current) use of anticoagulants; Z88.3 Allergy status to other anti-infective agents; Z88.1 Allergy status to other antibiotic agents; Z88.2 Allergy status to sulfonamides; Z88.6 Allergy status to analgesic agent; Z88.5 Allergy status to narcotic agent; Z87.891 Personal history of nicotine dependence; Z79.891 Long term (current) use of opiate analgesic; Z79.899 Other long term (current) drug therapy

== ENCOUNTER 2019-08-18 23:39 | Emergency (ER) | payer MEDICARE, OTHER ==
[2019-08-18] MEDS ORDERED: SODIUM CHLORIDE 0.9% 1000ML 1,000 ML IVS PRN (23:49)
[2019-08-18] MEDS ORDERED: SODIUM CHLORIDE 0.9% (FLUSH) 10 ML SYG IV PRN (23:49)
--- NOTE | 2019-08-18 23:56 | ED.PDOC ---
History of Present Illness - General Chief Complaint: Trauma Stated Complaint: fell, hit back of head Time Seen by Provider: 08/18/19 23:49 - History of Present Illness Initial Comments: 89 yo female with PMH of HTN, CHF, COPD on chronic O2 via [place], a-fib on Eliquis, hx of CVA who is bib EMS from [facility] for cc of fall with head injury. Reports she was trying to make her bed but became too weak to stand and fell to the ground and struck the back of her head against the hard ground. Reports constant moderate severity throbbing pain to back of the head without radiation, no meds taken for relief. Denies any LOC, chest pain, abd pain, n/v/d, leg swelling, fevers, sore throat, new weakness or numbness. Reports chronic dyspnea but unchanged from usual. Reports small bleeding wound to the back of her head. Allergies/Adverse Reactions: Allergies Fluticasone [From Advair Diskus] Allergy (Verified 08/04/19 00:16) Macrolides and Ketolides Allergy (Verified 08/04/19 00:16) Salmeterol [From Advair Diskus] Allergy (Verified 08/04/19 00:16) Sulfa Antibiotics Allergy (Verified 08/04/19 00:16) Sulfacetamide [From Sulfacet-R] Allergy (Verified 08/04/19 00:16) Sulfur [From Sulfacet-R] Allergy (Verified 08/04/19 00:16) Lorazepam [From Ativan] Adverse Reaction (Unknown, Verified 08/04/19 00:16) Other Makes her mean Aspirin Adverse Reaction (Verified 08/04/19 00:16) Celecoxib [From Celebrex] Adverse Reaction (Verified 08/04/19 00:16) Morphine Adverse Reaction (Verified 08/04/19 00:16) Other Home Medications: Ambulatory Orders RX: Estradiol 0.5 mg PO DAILY 10/25/15 RX: [place]-3 Fatty Acids [[place] Oil-1000 200 mg] 1 cap PO DAILY 10/27/15 RX: Apixaban [Eliquis] 2.5 mg PO BID #60 tab 10/29/15 RX: Tramadol HCl 25 mg PO BEDTIME PRN 04/01/16 RX: Trolamine Salicylate [Aspercreme Nighttime] 10 % EX Q6HR PRN 07/27/17 RX: Docusate Sodium 100 mg PO BID PRN 10/11/18 RX: Flecainide Acetate 100 mg PO BID 10/11/18 RX: guaiFENesin ER TAB [Mucinex Tab] 600 mg PO BID PRN 10/11/18 RX: Acetaminophen Arthritis [Tylenol Arthritis Pain] 650 mg PO Q6HR PRN 04/17/19 RX: Furosemide [Lasix] 20 mg PO DAILY PRN 04/17/19 RX: Furosemide [Lasix] 20 mg PO NOON PRN 04/17/19 RX: Nystatin (Topical) [Nystop] 100,000 unit TOP Q6HR PRN 04/17/19 RX: Polyethy-Prop Glycol Ophth [Systane Ophth] 2 drop BOTH_EYES DAILY 04/17/19 RX: Sumatriptan Succinate [Imitrex] 50 mg PO DAILY PRN 04/17/19 Calcium + D3 600-200 mg-Unit 1 tablet PO DAILY 04/22/19 RX: Albuterol Sulfate [Albuterol Sulfate Hfa] 90 mcg IN Q4HR PRN 04/22/19 RX: Cholecalciferol [Vitamin D3] 1,000 unit PO DAILY 04/22/19 Toprol Xl 25 mg PO DAILY 04/22/19 RX: Atorvastatin Calcium [Lipitor] 10 mg PO BEDTIME 08/02/19 RX: Umeclidinium-Vilanterol [Anoro Ellipta 62.5-25 Mcg/INH] 1 puff IN DAILY 08/03/19 RX: Ipratropium/Albuterol [Duoneb] 3 ml NEB TID 30 Days #2 b 08/06/19 RX: predniSONE 40 mg PO DAILY 30 Days #30 tab 08/06/19 levoFLOXacin [Levaquin] 500 mg PO DAILY 7 Days #7 tab 08/06/19 Review of Systems - Review of Systems Review of Systems: 08/18/19 23:56 as per HPI All other Systems: Reviewed and Negative Past Medical History (General) - Patient Medical History Hx Seizures: Yes Hx Stroke: Yes Hx Dementia: No Hx Asthma: Yes Hx of COPD: Yes Hx Cardiac Disorders: Yes - A-Fib, tachycardia, Hx Congestive Heart Failure: Yes Hx Pacemaker: No Hx Hypertension: Yes Hx Thyroid Disease: No Hx Diabetes: No Hx Gastroesophageal Reflux: Yes Hx Renal Disease: No Hx Cancer: Yes - lung Hx of HIV: No Hx Hepatitis C: No Hx MRSA: No - Vaccination History Hx Tetanus, Diphtheria Vaccination: - unknown Hx Influenza Vaccination: Yes - 2018 Hx Pneumococcal Vaccination: Yes - Social History Hx Tobacco Use: Yes - Quit 1997 Hx Chewing Tobacco Use: No Hx Alcohol Use: Yes - yrs ago Hx Substance Use: No Hx Substance Use Treatment: No Hx Depression: No Hx Physical Abuse: No Hx Emotional Abuse: No Hx Suspected Abuse: No - Female History Patient : No Family Medical History - Family History Father Family History: Unknown Living Status: Hx Family Asthma: No Hx Family Congestive Heart Failure: Yes Hx Family Hypertension: Yes Hx Family Stroke: No Hx Cardiac Disease: Yes Hx Family Diabetes: No Hx Family Cancer: Yes - mom-ovarian;prostate-ddad Physical Exam - Physical Exam General Appearance: Alert, Comfortable, No apparent distress Eye Exam: bilateral normal Ears, Nose, Throat: hearing grossly normal, normal ENT inspection, normal pharynx Neck: full range of motion, supple, normal inspection, tender lateral - BL lower c-spine paracervical ttp, no midline bony ttp or stepoffs noted Respiratory: chest non-tender, lungs clear, normal breath sounds, no respiratory distress, no accessory muscle use Cardiovascular/Chest: normal peripheral pulses, regular rate, rhythm, no edema, no gallop, no JVD, no murmur Peripheral Pulses: radial,right: 2+, radial,left: 2+ Gastrointestinal/Abdominal: non tender, soft, no organomegaly Back Exam: normal inspection, no CVA tenderness, no vertebral tenderness Extremity: normal range of motion, non-tender, normal inspection, no pedal edema, no calf tenderness Neurologic: lead 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 II-XII nml as tested, no motor/sensory deficits, alert, normal mood/affect, oriented x 3 Skin Exam: normal color, warm/dry, other - small hemostatic clean appearing <1 cm well approximated scalp laceration to back of head with underlying scalp contusion Progress - Progress Progress: 08/18/19 23:57 Ground level fall -with closed head injury -consider: ICH, skull frx, concussion, c-spine frx, ACS, CHF, PNA, UTI, electrolyte derangement, hip frx, pelvic frx -stat CT head & c-spine, CXR, pelvis XR, cardiac work-up, labs -pt refuses c-collar 08/19/19 02:23 -CT Head & c-spine without acute processes. CXR & pelvis XR without acute frx's. -Labwork pretty unremarkable. -Pt has remained stable. Wound cleansed copiously and examined - only 5 mm well approximated clean/hemostatic superficial wound not necessitating repair to occipital scalp -tetanus imm UTD -will dc back to [facility] in good condition, return warnings discussed at length Sanket Sawyer MD Billing #[id number] 08/19/19 02:45 08/18/19 23:49 IV Care:Saline Lock per Protoc QSHIFT Telemetry .ONCE Sodium Chloride 0.9% (Flush) [Saline Flush Syringe] 10 ml IV PRN PRN Sodium Chloride 0.9% 1000ML [Ns 1000 ml] 1,000 ml IVS .QD EKG Stat 08/18/19 23:50 Pulse Oximetry Assessment DAILY URINALYSIS Stat 08/19/19 09:00 Pulse Ox Daily Laboratory Results - last 24 hr 08/18/19 08/18/19 08/18/19 23:49 23:49 23:51 WBC 10.0 RBC 4.96 Hgb 15.3 Hct 45.4 MCV 91.6 MCH 30.9 MCHC 33.7 RDW 13.0 Plt Count 213 MPV 7.7 Absolute Neuts (auto) 7.10 H Absolute Lymphs (auto) 2.00 Absolute Monos (auto) 0.80 Absolute Eos (auto) 0.10 Absolute Basos (auto) 0.00 Neutrophils % 71.4 Lymphocytes % 19.9 L Monocytes % 7.6 Eosinophils % 0.8 L Basophils % 0.3 PT 10.1 INR 1.02 PTT (SP) 26.0 Sodium Potassium Chloride Carbon Dioxide Anion Gap BUN Creatinine BUN/Creatinine Ratio Random Glucose Serum Osmolality Calcium Troponin I < 0.02 B-Natriuretic Peptide 08/18/19 08/19/19 23:51 02:02 WBC RBC Hgb Hct MCV MCH MCHC RDW Plt Count MPV Absolute Neuts (auto) Absolute Lymphs (auto) Absolute Monos (auto) Absolute Eos (auto) Absolute Basos (auto) Neutrophils % Lymphocytes % Monocytes % Eosinophils % Basophils % PT INR PTT (SP) Sodium 136 Potassium 3.9 Chloride 100 L Carbon Dioxide 26 Anion Gap 13.9 BUN 20 H Creatinine 0.55 L BUN/Creatinine Ratio 36.4 H Random Glucose 153 H Serum Osmolality 277.6 Calcium 8.6 Troponin I B-Natriuretic Peptide 119.0 H - EKG/XRAY/CT EKG: Sinus - NSR with RBBB, HR 90, no ST elevations or q waves, axis normal, QTc prolonged 527 msecs, compared to 09/2018 EKG appears unchanged. XRAY: chest - no acute processes per my read - Additional EKG/XRAY/Consults XRAY #2: pelvis - no acute processes per my read Departure - Departure Clinical Impression: Fall, Contusion of scalp, initial encounter Time of Disposition: : Disposition: Discharge to Asst Living Condition: Good Departure Forms: ED Discharge - Pt. Copy, Patient Portal Self Enrollment Instructions: Closed Head Injury (DC) Diet: resume usual diet Referrals: Bora Brown MD [Primary Care Provider] - 1-2 Weeks Home Medications: Ambulatory Orders RX: Estradiol 0.5 mg PO DAILY 10/25/15 RX: [place]-3 Fatty Acids [[place] Oil-1000 200 mg] 1 cap PO DAILY 10/27/15 RX: Apixaban [Eliquis] 2.5 mg PO BID #60 tab 10/29/15 RX: Tramadol HCl 25 mg PO BEDTIME PRN 04/01/16 RX: Trolamine Salicylate [Aspercreme Nighttime] 10 % EX Q6HR PRN 07/27/17 RX: Docusate Sodium 100 mg PO BID PRN 10/11/18 RX: Flecainide Acetate 100 mg PO BID 10/11/18 RX: guaiFENesin ER TAB [Mucinex Tab] 600 mg PO BID PRN 10/11/18 RX: Acetaminophen Arthritis [Tylenol Arthritis Pain] 650 mg PO Q6HR PRN 04/17/19 RX: Furosemide [Lasix] 20 mg PO DAILY PRN 04/17/19 RX: Furosemide [Lasix] 20 mg PO NOON PRN 04/17/19 RX: Nystatin (Topical) [Nystop] 100,000 unit TOP Q6HR PRN 04/17/19 RX: Polyethy-Prop Glycol Ophth [Systane Ophth] 2 drop BOTH_EYES DAILY 04/17/19 RX: Sumatriptan Succinate [Imitrex] 50 mg PO DAILY PRN 04/17/19 Calcium + D3 600-200 mg-Unit 1 tablet PO DAILY 04/22/19 RX: Albuterol Sulfate [Albuterol Sulfate Hfa] 90 mcg IN Q4HR PRN 04/22/19 RX: Cholecalciferol [Vitamin D3] 1,000 unit PO DAILY 04/22/19 Toprol Xl 25 mg PO DAILY 04/22/19 RX: Atorvastatin Calcium [Lipitor] 10 mg PO BEDTIME 08/02/19 RX: Umeclidinium-Vilanterol [Anoro Ellipta 62.5-25 Mcg/INH] 1 puff IN DAILY 08/03/19 RX: Ipratropium/Albuterol [Duoneb] 3 ml NEB TID 30 Days #2 b 08/06/19 RX: predniSONE 40 mg PO DAILY 30 Days #30 tab 08/06/19 levoFLOXacin [Levaquin] 500 mg PO DAILY 7 Days #7 tab 08/06/19 Additional Instructions: Return if you develop any concerning symptoms such as severe or rapidly worsening headache, confusion, loss of consciousness, weakness, numbness, vision changes, slurred speech, etc... Continue ibuprofen and Tylenol as needed for pain control. Follow up with your primary care doctor as scheduled or sooner as needed.
--- NOTE | 2019-08-19 00:48 | CT ---
PROCEDURE: CT Cervical Spine CLINICAL HISTORY: 89 years Female ground level fall, closed head injury TECHNIQUE: Contiguous axial CT images obtained through the cervical spine without IV contrast. Coronal and sagittal reformatted images also provided. This CT exam was performed according to our departmental dose-optimization program, which includes one or more of the following dose reduction techniques: automated exposure control, adjustment of the mA and/or kV according to patient size, and/or use of iterative reconstruction technique. COMPARISON: 10/13/2010 FINDINGS: Occipital scalp swelling. There is no acute cervical fracture or spondylolisthesis. Calcifications in the alar ligaments and ligamentum flavum hypertrophy crescent the prior exam. Again seen is mild to moderate scattered multilevel degenerative disc disease, uncovertebral arthrosis, and facet arthrosis. No aggressive osseous lesion. Carotid atherosclerosis without soft tissue hemorrhage in the neck. Scarring in the lung apices, right greater than left. Biapical emphysema. At C2-C3, there is minimal left neural foraminal narrowing. At C3-C4, there is severe right and mild left neural foraminal stenosis. At C4-C5, there is mild central canal stenosis. At C5-C6, there is mild bilateral neural foraminal narrowing. At C6-C7, there is mild right neural foraminal narrowing. At C7-T1, there is no central canal or neural foraminal stenosis. IMPRESSION: Occipital scalp swelling. No acute cervical spine injury. Chronic degenerative changes described. Electronically signed by: Theresa Lal MD 08/19/2019 12:46 AM [employer]
--- NOTE | 2019-08-19 00:50 | CT ---
PROCEDURE: CT Head CLINICAL HISTORY: 89 years Female ground level fall, closed head injury TECHNIQUE: Contiguous axial CT images obtained through the brain without IV contrast. This CT exam was performed according to our departmental dose-optimization program, which includes one or more of the following dose reduction techniques: automated exposure control, adjustment of the mA and/or kV according to patient size, and/or use of iterative reconstruction technique. COMPARISON: 08/02/2019 FINDINGS: There is new occipital scalp swelling without soft tissue gas or foreign body. No acute skull fracture, parenchymal hemorrhage, extraaxial collection, or acute transcortical infarction. Patchy foci of low attenuation within the periventricular white matter are stable and compatible with chronic microvascular disease. There is stable diffuse volume loss without mass effect or midline shift. Minimal left mastoiditis again noted. The right mastoid air cells and visualized paranasal sinuses are clear. Postsurgical changes in the orbits without acute intraorbital injury. IMPRESSION: Mild occipital scalp swelling. No skull fracture or acute intracranial injury. Stable chronic microvascular changes and volume loss. Stable minimal left mastoiditis. Electronically signed by: Theresa Lal MD 08/19/2019 12:49 AM [facility]
--- NOTE | 2019-08-19 00:52 | RAD ---
EXAM DESCRIPTION: XR Chest,1 View CLINICAL HISTORY: 89 years Female ground level fall, closed head injury TECHNIQUE: One view of the chest. COMPARISON: 08/05/2019 FINDINGS: Stable postsurgical changes in the right hemithorax with volume loss and architectural distortion. There is biapical scarring, right greater than left. No new airspace consolidation, pleural effusion, or pneumothorax. Stable cardiomediastinal silhouette. No visualized acute fracture in the chest. IMPRESSION: Stable postsurgical changes. No new findings in the chest. Electronically signed by: Theresa Lal MD 08/19/2019 12:51 AM [facility]
--- NOTE | 2019-08-19 00:53 | RAD ---
EXAM DESCRIPTION: XR Pelvis CLINICAL HISTORY: 89 years Female ground level fall TECHNIQUE: One view of the pelvis COMPARISON: No prior exams provided for comparison. FINDINGS: There is no acute pelvic fracture or dislocation. 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 No evidence of avascular necrosis. The sacroiliac joints and pubic symphysis appear normal. No aggressive osseous lesion. IMPRESSION: No acute findings in the pelvis. Electronically signed by: Theresa Lal MD 08/19/2019 12:51 AM [facility]
[2019-08-19 02:38] VITALS: BP 150/69; O2SAT 100
[2019-08-19 02:40] VITALS: TEMP 97.4
== END 2019-08-19 03:06 ==
LOC: ER 23:39
DX: S01.01XA Laceration without foreign body of scalp, initial encounter (principal); I45.10 Unspecified right bundle-branch block; I45.81 Long QT syndrome; M50.30 Other cervical disc degeneration, unspecified cervical region; M11.252 Other chondrocalcinosis, left hip; M11.251 Other chondrocalcinosis, right hip; I11.0 Hypertensive heart disease with heart failure; I50.9 Heart failure, unspecified; J44.9 Chronic obstructive pulmonary disease, unspecified; I48.91 Unspecified atrial fibrillation; R56.9 Unspecified convulsions; K21.9 Gastro-esophageal reflux disease without esophagitis; W18.30XA Fall on same level, unspecified, initial encounter; Y93.89 Activity, other specified; Y92.122 Bedroom in nursing home as the place of occurrence of the external cause; Z79.01 Long term (current) use of anticoagulants; Z99.81 Dependence on supplemental oxygen; Z85.118 Personal history of other malignant neoplasm of bronchus and lung; Z87.891 Personal history of nicotine dependence; Z79.899 Other long term (current) drug therapy; Z86.73 Personal history of transient ischemic attack (TIA), and cerebral infarction without residual deficits; Z88.8 Allergy status to other drugs, medicaments and biological substances; Z88.2 Allergy status to sulfonamides; Z88.6 Allergy status to analgesic agent; Z88.5 Allergy status to narcotic agent
CPT/HCPCS: 36415; 70450; 71045; 72125; 72170; 80048; 81001; 83880; 84484; 85025; 85610; 85730; 93005; J7030

== ENCOUNTER 2019-08-23 06:19 | Emergency (ER) | payer MEDICARE, OTHER ==
--- NOTE | 2019-08-23 07:49 | ED.PDOC ---
History of Present Illness - General Chief Complaint: Trauma Stated Complaint: fell, hit head on floor Time Seen by Provider: 08/23/19 07:47 Source: patient, RN notes reviewed, Vital Signs reviewed, family - Son Exam Limitations: no limitations - History of Present Illness Initial Comments: Patient is a pleasant 89-year-old white female who presents with complaints of headache and neck pain status post trip and fall today. She had a similar episode 3 to 4 days ago. At that time, she did not present to the hospital. Today's pain is throbbing in nature. It is moderate in intensity. Worse with movement or palpation of the hematoma on her head. Better with rest. The pain is continuous. Patient denies loss of consciousness. She does have a headache. No blurry vision or dizziness. Patient denies any chest pain, nausea, vomiting, diarrhea. Patient denies any paresthesias or weakness. Timing/Duration: 1-3 hours Severity: moderate Improving Factors: immobilization, rest Worsening Factors: movement Associated Symptoms: headaches Allergies/Adverse Reactions: Allergies Fluticasone [From Advair Diskus] Allergy (Verified 08/04/19 00:16) Macrolides and Ketolides Allergy (Verified 08/04/19 00:16) Salmeterol [From Advair Diskus] Allergy (Verified 08/04/19 00:16) Sulfa Antibiotics Allergy (Verified 08/04/19 00:16) Sulfacetamide [From Sulfacet-R] Allergy (Verified 08/04/19 00:16) Sulfur [From Sulfacet-R] Allergy (Verified 08/04/19 00:16) Lorazepam [From Ativan] Adverse Reaction (Unknown, Verified 08/04/19 00:16) Other Makes her mean Aspirin Adverse Reaction (Verified 08/04/19 00:16) Celecoxib [From Celebrex] Adverse Reaction (Verified 08/04/19 00:16) Morphine Adverse Reaction (Verified 08/04/19 00:16) Other Home Medications: Ambulatory Orders Acetaminophen [Tylenol] 325 mg PO 08/23/19 Apixaban [Eliquis] 08/23/19 Budesonide (Inhalation) [Pulmicort] 0.5 mg IN 08/23/19 Cholecalciferol [Vitamin D-3] 08/23/19 Flecainide [Tambocor] 50 mg PO 08/23/19 Furosemide [Lasix] 20 mg PO 08/23/19 Ipratropium-Albuterol [Ipratropium [place]/Albut] 08/23/19 Propylene Glycol (Ophth) [Systane Complete] 0.6 % OP 08/23/19 SUMAtriptan SUCCINATE [Imitrex] 200 mg PO 08/23/19 Review of Systems - Review of Systems Constitutional: States: no symptoms reported, see HPI EENTM: States: no symptoms reported. Denies: eye pain, blurred vision, tearing, nose congestion Respiratory: Denies: cough, short of breath Cardiology: States: no symptoms reported. Denies: chest pain, palpitations, syncope Gastrointestinal/Abdominal: States: no symptoms reported. Denies: abdominal pain, nausea, vomiting Genitourinary: States: no symptoms reported Musculoskeletal: States: neck pain. Denies: joint swelling, muscle pain Skin: States: other - Patient with a hematoma in the back of her head. Neurological: States: see HPI, headache. Denies: paresthesia, tingling, weakness Endocrine: States: no symptoms reported Hematologic/Lymphatic: States: no symptoms reported All other Systems: Reviewed and Negative Past Medical History (General) - Patient Medical History Hx Seizures: Yes Hx Stroke: Yes Hx Dementia: No Hx Asthma: Yes Hx of COPD: Yes Hx Cardiac Disorders: Yes - A-Fib, tachycardia, Hx Congestive Heart Failure: Yes Hx Pacemaker: No Hx Hypertension: Yes Hx Thyroid Disease: No Hx Diabetes: No Hx Gastroesophageal Reflux: Yes Hx Renal Disease: No Hx Cancer: Yes - lung Hx of HIV: No Hx Hepatitis C: No Hx MRSA: No - Vaccination History Hx Tetanus, Diphtheria Vaccination: - unknown Hx Influenza Vaccination: Yes - 2018 Hx Pneumococcal Vaccination: Yes - Social History Hx Tobacco Use: Yes - Quit 1997 Hx Chewing Tobacco Use: No Hx Alcohol Use: Yes - yrs ago Hx Substance Use: No Hx Substance Use Treatment: No Hx Depression: No Hx Physical Abuse: No Hx Emotional Abuse: No Hx Suspected Abuse: No - Activities of Daily Living Retirement/Assisted Living (if applicable):: [place] - Female History Patient : No Family Medical History - Family History Father Family History: Unknown Living Status: Hx Family Asthma: No Hx Family Congestive Heart Failure: Yes Hx Family Hypertension: Yes Hx Family Stroke: No Hx Cardiac Disease: Yes Hx Family Diabetes: No Hx Family Cancer: Yes - mom-ovarian;prostate-ddad Physical Exam - Physical Exam General Appearance: Alert, Comfortable, Well Developed, Well Groomed, Well Hydrated, Well Nourished Eye Exam: bilateral normal Ears, Nose, Throat: hearing grossly normal, normal pharynx Neck: full range of motion, supple, tender lateral Respiratory: chest non-tender, lungs clear, no respiratory distress, other - Diminished lung sounds in the left lower lobe. Cardiovascular/Chest: normal peripheral pulses, regular rate, rhythm, no edema, no gallop, no JVD, no murmur Peripheral Pulses: radial,right: 2+, radial,left: 2+ Gastrointestinal/Abdominal: normal bowel sounds, non tender, soft, no organomegaly, no pulsatile mass Back Exam: normal inspection, no CVA tenderness, no vertebral tenderness Extremity: normal range of motion, non-tender, no pedal edema, no calf tenderness Neurologic: wire charger II-XII nml as tested, no motor/sensory deficits, alert, normal mood/affect Skin Exam: normal color, warm/dry Lymphatic: no adenopathy Progress - Progress Progress: Parental diagnosis: Skull fracture, intraparenchymal bleed, cervical spine fracture, head contusion among others. 08/23/19 08:22 Patient is resting comfortably. There are no acute findings on her CT of the head, CT of the C-spine nor the chest x-ray. This is the second fall in 4 days. Concerning that the patient continues to fall. Would recommend to the residential that they institute fall precautions as this patient is high risk. I discussed the plan of care and these findings with the family as well as the patient. They voiced understanding and agreement with the plan of care to discharge back to the residential. Yordy Chung M.D. #[id number] - Results/Orders Results/Orders: EXAM: CT head without IV contrast CLINICAL DATA: fall, takes blood thinners TECHNICAL DATA: Multiple axial CT images of the brain were performed followed by sagittal and coronal reconstructed images. The CT study is performed according to ALARA (as low as reasonably achievable) or ALARA/IMAGE GENTLY, with automatic adjustment of mA and/or kV according to patient size. Performed on: 08/23/2019 at 7:15 AM Comparisons: 08/19/2019. FINDINGS: There is no evidence of mass, acute mass effect or midline shift. There are no acute extra-axial fluid collections. There is no evidence of acute intracranial hemorrhage. There are calcifications along the cavernous carotid arteries. The cerebral sulci and ventricles are prominent consistent with moderate cerebral volume loss. There are scattered areas of decreased attenuation within the subcortical and periventricular white matter most likely due to mild chronic microangiopathy. There is no significant mucosal thickening of the paranasal sinuses. There is stable minimal opacification of the left mastoid air cells. The orbital contents are grossly unremarkable. No acute osseous abnormalities are identified. There is posterior scalp soft tissue swelling IMPRESSION: 1. No significant change when compared to the prior study. 2. Moderate cerebral atrophy with findings consistent with mild chronic microangiopathy. 3. Posterior scalp soft tissue swelling. 4. Minimal opacification in the left mastoid air cells. Electronically signed by: Alyse Soto DO 08/23/2019 8:01 AM EXAM DESCRIPTION: X-ray single view chest. CLINICAL HISTORY: 89 years Female, fall COMPARISON: 08/19/2019 and 08/05/2019 TECHNIQUE: Single portable x-ray view of the chest performed on 08/23/2019 at 7:05 AM FINDINGS: The lungs are well expanded and are grossly clear. Postsurgical changes project over the right hemithorax related to prior partial right lung resection. The lateral costophrenic sulci are clear. There is persistent opacification in the right lung apex. There is no evidence of a pneumothorax. The cardiac silhouette is normal in size and configuration. The mediastinal contours are normal. No acute osseous abnormality is identified. No focal soft tissue abnormalities are seen. Lines and tubes: None. IMPRESSION: 1. No significant change when compared to the prior studies. 2. Prior partial right lung resection with chronic opacification in the right lung apex. 3. No definite acute intrathoracic disease. Electronically signed by: Alyse Soto DO 08/23/2019 7:56 AM PROCEDURE: CT Cervical Spine Without Intravenous Contrast CLINICAL INDICATION: The patient is 89 years old and is Female; fall MAIN TECHNIQUE: Axial computed tomography images of the cervical spine without intravenous contrast. Sagittal and coronal reformatted images were created and reviewed. This CT exam was performed using one or more of the following dose reduction techniques: automated exposure control, adjustment of the mA and/or kV according to patient size, and/or use of iterative reconstruction technique. COMPARISON: Prior study from 4 days earlier. FINDINGS: VERTEBRAE: No fracture or malalignment identified in the cervical spine. Ununited posterior arch of C1. The lateral masses of C1 are normal with respect to C2. The dens is intact. DISCS/SPINAL CANAL/NEURAL FORAMINA: There is degenerative zygoapophyseal and uncovertebral hypertrophy at multiple levels. Subchondral sclerosis and severe disc space narrowing at C5-C6 without posterior osteophytosis. OTHER BONES/JOINTS: The visualized skull base is without fracture. SOFT TISSUES: No prevertebral soft tissue hematoma identified. VASCULATURE: Severe atherosclerotic calcifications of the bilateral carotid bifurcations. MASTOID AIR CELLS: The inferior mastoid air cells are clear. LUNG APICES: Unremarkable as visualized. PLEURAL SPACE: Circumferential pleural fluid and parenchymal scarring at the RIGHT apex. Pleural parenchymal scarring medially at the LEFT apex. There is mild centrilobular emphysematous change. IMPRESSION: No acute fracture or malalignment identified in the cervical spine. No change from 4 days earlier. Electronically signed by: Stanley Thornton MD 08/23/2019 8:14 AM [employer] 08/23/19 06:40 IV Care:Saline Lock per [facility] QSHIFT Telemetry .ONCE EKG Stat 08/23/19 06:41 Pulse Oximetry Assessment DAILY 08/23/19 09:00 Pulse Ox Daily Laboratory Results - last 24 hr 08/23/19 08/23/19 08/23/19 06:40 06:40 06:40 WBC 9.2 RBC 4.58 Hgb 14.2 Hct 42.6 MCV 93.0 MCH 31.0 MCHC 33.3 RDW 13.1 Plt Count 179 MPV 7.6 Absolute Neuts (auto) 7.60 H Absolute Lymphs (auto) 1.00 Absolute Monos (auto) 0.40 Absolute Eos (auto) 0.10 Absolute Basos (auto) 0.00 Neutrophils % 82.9 H Lymphocytes % 11.2 L Monocytes % 4.6 Eosinophils % 1.1 Basophils % 0.2 PT 9.6 INR < 1.00 PTT (SP) 26.3 Sodium 138 Potassium 4.8 Chloride 100 L Carbon Dioxide 28 Anion Gap 14.8 BUN 15 Creatinine 0.59 L BUN/Creatinine Ratio 25.4 H Random Glucose 150 H Serum Osmolality 279.4 Calcium 9.4 Total Bilirubin 1.2 H AST 20 ALT 23 Alkaline Phosphatase 75 Serum Total Protein 6.7 Albumin 3.4 Globulin 3.3 Albumin/Globulin Ratio 1.0 L - EKG/XRAY/CT CT Ordered: Yes Departure - Departure Clinical Impression: Fall Qualifiers: Encounter type: initial encounter Qualified Code(s): W19.XXXA - Unspecified fall, initial encounter Contusion of occipital region of scalp Qualifiers: Encounter type: initial encounter Qualified Code(s): S00.03XA - Contusion of scalp, initial encounter Time of Disposition: 08:24 Disposition: Discharge to Home or Self Care Condition: Good Departure Forms: ED Discharge - Pt. Copy, Patient Portal Self Enrollment Instructions: DI for Trauma, Minor Head Injury (DC), Contusion (DC) Activity: as per physical therapy Referrals: Bora Brown MD [Primary Care Provider] - 1-5 Days Home Medications: Ambulatory Orders Acetaminophen [Tylenol] 325 mg PO 08/23/19 Apixaban [Eliquis] 08/23/19 Budesonide (Inhalation) [Pulmicort] 0.5 mg IN 08/23/19 Cholecalciferol [Vitamin D-3] 08/23/19 Flecainide [Tambocor] 50 mg PO 08/23/19 Furosemide [Lasix] 20 mg PO 08/23/19 Ipratropium-Albuterol [Ipratropium [place]/Albut] 08/23/19 Propylene Glycol (Ophth) [Systane Complete] 0.6 % OP 08/23/19 SUMAtriptan SUCCINATE [Imitrex] 200 mg PO 08/23/19
[2019-08-23 07:57] VITALS: O2SAT 99
--- NOTE | 2019-08-23 07:58 | RAD ---
EXAM DESCRIPTION: X-ray single view chest. CLINICAL HISTORY: 89 years Female, fall COMPARISON: 08/19/2019 and 08/05/2019 TECHNIQUE: Single portable x-ray view of the chest performed on 08/23/2019 at 7:05 AM FINDINGS: The lungs are well expanded and are grossly clear. Postsurgical changes project over the right hemithorax related to prior partial right lung resection. The lateral costophrenic sulci are clear. There is persistent opacification in the right lung apex. There is no evidence of a pneumothorax. The cardiac silhouette is normal in size and configuration. The mediastinal contours are normal. No acute osseous abnormality is identified. No focal soft tissue abnormalities are seen. Lines and tubes: None. IMPRESSION: 1. No significant change when compared to the prior studies. 2. Prior partial right lung resection with chronic opacification in the right lung apex. 3. No definite acute intrathoracic disease. Electronically signed by: Alyse Soto DO 08/23/2019 7:56 AM [facility]
--- NOTE | 2019-08-23 08:02 | CT ---
EXAM: CT head without IV contrast CLINICAL DATA: fall, takes blood thinners TECHNICAL DATA: Multiple axial CT images of the brain were performed followed by sagittal and coronal reconstructed images. The CT study is performed according to ALARA (as low as reasonably achievable) or ALARA/IMAGE GENTLY, with automatic adjustment of mA and/or kV according to patient size. Performed on: 08/23/2019 at 7:15 AM Comparisons: 08/19/2019. FINDINGS: There is no evidence of mass, acute mass effect or midline shift. There are no acute extra-axial fluid collections. There is no evidence of acute intracranial hemorrhage. There are calcifications along the cavernous carotid arteries. The cerebral sulci and ventricles are prominent consistent with moderate cerebral volume loss. There are scattered areas of decreased attenuation within the subcortical and periventricular white matter most likely due to mild chronic microangiopathy. There is no significant mucosal thickening of the paranasal sinuses. There is stable minimal opacification of the left mastoid air cells. The orbital contents are grossly unremarkable. No acute osseous abnormalities are identified. There is posterior scalp soft tissue swelling IMPRESSION: 1. No significant change when compared to the prior study. 2. Moderate cerebral atrophy with findings consistent with mild chronic microangiopathy. 3. Posterior scalp soft tissue swelling. 4. Minimal opacification in the left mastoid air cells. Electronically signed by: Alyse Soto DO 08/23/2019 8:01 AM [facility]
--- NOTE | 2019-08-23 08:16 | CT ---
PROCEDURE: CT Cervical Spine Without Intravenous Contrast CLINICAL INDICATION: The patient is 89 years old and is Female; fall MAIN TECHNIQUE: Axial computed tomography images of the cervical spine without intravenous contrast. Sagittal and coronal reformatted images were created and reviewed. This CT exam was performed using one or more of the following dose reduction techniques: automated exposure control, adjustment of the mA and/or kV according to patient size, and/or use of iterative reconstruction technique. COMPARISON: Prior study from 4 days earlier. FINDINGS: VERTEBRAE: No fracture or malalignment identified in the cervical spine. Ununited posterior arch of C1. The lateral masses of C1 are normal with respect to C2. The dens is intact. DISCS/SPINAL CANAL/NEURAL FORAMINA: There is degenerative zygoapophyseal and uncovertebral hypertrophy at multiple levels. Subchondral sclerosis and severe disc space narrowing at C5-C6 without posterior osteophytosis. OTHER BONES/JOINTS: The visualized skull base is without fracture. SOFT TISSUES: No prevertebral soft tissue hematoma identified. VASCULATURE: Severe atherosclerotic calcifications of the bilateral carotid bifurcations. MASTOID AIR CELLS: The inferior mastoid air cells are clear. LUNG APICES: Unremarkable as visualized. PLEURAL SPACE: Circumferential pleural fluid and parenchymal scarring at the RIGHT apex. Pleural parenchymal scarring medially at the LEFT apex. There is mild centrilobular emphysematous change. IMPRESSION: No acute fracture or malalignment identified in the cervical spine. No change from 4 days earlier. Electronically signed by: Stanley Thornton MD 08/23/2019 8:14 AM NURSE EPIDEMIOLOGIST
[2019-08-23 08:38] VITALS: BP 134/80; TEMP 98
== END 2019-08-23 08:39 | disposition home or self-care (01) ==
LOC: ER 06:19
DX: S00.03XA Contusion of scalp, initial encounter (principal); M54.2 Cervicalgia; M50.322 Other cervical disc degeneration at C5-C6 level; G31.9 Degenerative disease of nervous system, unspecified; R56.9 Unspecified convulsions; J44.9 Chronic obstructive pulmonary disease, unspecified; I48.91 Unspecified atrial fibrillation; I50.9 Heart failure, unspecified; I11.0 Hypertensive heart disease with heart failure; K21.9 Gastro-esophageal reflux disease without esophagitis; Z87.891 Personal history of nicotine dependence; Z85.118 Personal history of other malignant neoplasm of bronchus and lung; Z86.73 Personal history of transient ischemic attack (TIA), and cerebral infarction without residual deficits; Z79.899 Other long term (current) drug therapy; Z88.2 Allergy status to sulfonamides; W01.0XXA Fall on same level from slipping, tripping and stumbling without subsequent striking against object, initial encounter; Y92.9 Unspecified place or not applicable

== ENCOUNTER 2020-01-31 14:45 | Emergency (ER) | payer MEDICARE, OTHER ==
--- NOTE | 2020-01-31 15:49 | ED.PDOC ---
History of Present Illness - General Chief Complaint: Respiratory Problem Stated Complaint: Coughing up trace blood, congestion Time Seen by Provider: 01/31/20 15:08 Source: patient, RN notes reviewed, Vital Signs reviewed, retirement records, old records Exam Limitations: no limitations Additional Information: This is an 89-year-old female with remote history of lung cancer status post ri ght upper lobectomy presenting to the emergency department with coughing up blood-tinged sputum onset 4 days ago. Patient has a longstanding history of coughing up dark brown sputum, but states she has now coughing up small amounts of red blood. The cough is chronic and unchanged. She is currently on Eliquis due to history of A. fib. She states she has had brief episodes of blood-tinged sputum going back for many years, stating that this is nothing new. She was sent to the emergency room because her son was concerned. She denies any shortness of breath, chest pain, leg swelling. No known COVID-19 contacts. She was recently swabbed for COVID-19 in her retirement and tested negative. - History of Present Illness Allergies/Adverse Reactions: Allergies Fluticasone [From Advair Diskus] Allergy (Verified 01/31/20 15:24) Macrolides and Ketolides Allergy (Verified 01/31/20 15:24) Salmeterol [From Advair Diskus] Allergy (Verified 01/31/20 15:24) Sulfa Antibiotics Allergy (Verified 01/31/20 15:24) Sulfacetamide [From Sulfacet-R] Allergy (Verified 01/31/20 15:24) Sulfur [From Sulfacet-R] Allergy (Verified 01/31/20 15:24) Lorazepam [From Ativan] Adverse Reaction (Unknown, Verified 01/31/20 15:24) Other Makes her mean Aspirin Adverse Reaction (Verified 01/31/20 15:24) Celecoxib [From Celebrex] Adverse Reaction (Verified 01/31/20 15:24) Morphine Adverse Reaction (Verified 01/31/20 15:24) Other Home Medications: Ambulatory Orders Acetaminophen [Tylenol] 325 mg PO 08/23/19 Apixaban [Eliquis] 08/23/19 Budesonide (Inhalation) [Pulmicort] 0.5 mg IN 08/23/19 Cholecalciferol [Vitamin D-3] 08/23/19 Flecainide [Tambocor] 50 mg PO 08/23/19 Furosemide [Lasix] 20 mg PO 08/23/19 Ipratropium-Albuterol [Ipratropium Valentine/Albut] 08/23/19 Propylene Glycol (Ophth) [Systane Complete] 0.6 % OP 08/23/19 SUMAtriptan SUCCINATE [Imitrex] 200 mg PO 08/23/19 Review of Systems - Review of Systems Constitutional: Denies: chills, fever EENTM: States: nose congestion. Denies: throat pain Respiratory: States: cough. Denies: short of breath, wheezing Cardiology: Denies: chest pain, edema Gastrointestinal/Abdominal: Denies: abdominal pain, constipation, diarrhea, nausea, vomiting Genitourinary: Denies: dysuria, hematuria Musculoskeletal: Denies: back pain, joint pain, muscle stiffness, neck pain Skin: Denies: lesions, rash Neurological: Denies: paresthesia, weakness Endocrine: States: no symptoms reported Hematologic/Lymphatic: States: easy bleeding - On Eliquis due to history of A. fib, easy bruising Past Medical History (General) - Patient Medical History Hx Seizures: Yes Hx Stroke: Yes Hx Dementia: No Hx Asthma: Yes Hx of COPD: Yes Hx Cardiac Disorders: No Hx Congestive Heart Failure: Yes Hx Pacemaker: No Hx Hypertension: Yes Hx Thyroid Disease: No Hx Diabetes: No Hx Gastroesophageal Reflux: Yes Hx Renal Disease: No Hx Cancer: Yes - Lung Hx of HIV: No Hx Hepatitis C: No Hx MRSA: No Surgical History: appendectomy, cancer surgery, tonsillectomy, other - Vaccination History Hx Tetanus, Diphtheria Vaccination: - unknown Hx Influenza Vaccination: Yes Hx Pneumococcal Vaccination: Yes - Social History Hx Tobacco Use: Yes Hx Chewing Tobacco Use: No Hx Alcohol Use: No Hx Substance Use: No Hx Substance Use Treatment: No Hx Depression: No Hx Physical Abuse: No Hx Emotional Abuse: No Hx Suspected Abuse: No - Activities of Daily Living Group Home/Assisted Living (if applicable):: [facility] - Female History Patient is a Female of Child Bearing Age (10 -59 yrs old): No Patient : No Family Medical History - Family History Father Family History: Unknown Living Status: Hx Family Asthma: No Hx Family Congestive Heart Failure: Yes Hx Family Hypertension: Yes Hx Family Stroke: No Hx Cardiac Disease: Yes Hx Family Diabetes: No Hx Family Cancer: Yes - mom-ovarian;prostate-dad Physical Exam - Physical Exam General Appearance: Alert, Comfortable, No apparent distress ENT Exam: normal ENT inspection, hearing grossly normal Neck: non-tender, full range of motion, supple Respiratory: chest non-tender, lungs clear, normal breath sounds, no respiratory distress, no accessory muscle use Cardiovascular/Chest: normal peripheral pulses, regular rate, rhythm, no edema, no gallop, no JVD, no murmur Gastrointestinal/Abdominal: non tender, soft Extremity: normal range of motion, non-tender, normal inspection Neurologic: no motor/sensory deficits, alert, normal mood/affect Skin Exam: normal color, warm/dry, rash Progress - Progress Progress: 01/31/20 20:10 Late entry. Plan for discharge home was discussed with the patient and her caregiver. Discussed chest x-ray findings. Sats remain normal. Patient and caregiver state that the amount of blood has gradually decreased since onset several days ago. Patient is concerned about being off her anticoagulation given history of A. fib and would like to restart it. I feel this is reasonable and will write a note for retirement to restart Eliquis. Strict warnings given to return the emergency room for worsening cough, shortness of breath, fever, increased hemoptysis, leg swelling, or any other concerns DDX: Bronchitis, COPD, very low suspicion for PE, low suspicion for COVID-19, low suspicion for pulmonary hemorrhage MDM: This patient has longstanding history of COPD, A. fib on Eliquis, as well as chronic intermittent episodes of hemoptysis. Patient states this is longstanding since her surgery for lung cancer several years ago. She denies any new shortness of breath, no increased cough, no fever. Her Eliquis is been held for several days due to hemoptysis. Her sats are normal, no respiratory distress, lungs clear, chest x-ray shows no acute process. Given chronicity of her symptoms, I do not feel it is unreasonable to restart Eliquis given decreasing bleeding over the last several days. I have very low suspicion for PE given anticoagulation. Chest x-ray, vitals not consistent with pulmonary hemorrhage. Strict warnings were given to return to the emergency room for worsening, recommended follow-up with PCP in 3 to 5 days. Reza Veras DO [facility] #[id number] - Results/Orders Results/Orders: EXAM DESCRIPTION: Chest x-ray two views: CLINICAL HISTORY: cough, hemoptysis COMPARISON: None TECHNIQUE: PA and lateral views of the chest were obtained. Patient is rotated. FINDINGS: The heart is normal in size . The hilar and mediastinal structures are within normal limits. The pulmonary vascularity is normal . Chronic pleural parenchymal changes are seen in the right upper lobe. Surgical clips are seen in the right hilar region. The bony structures demonstrate dorsal kyphosis.. IMPRESSION: No active disease. Electronically signed by: Alvina Doran MD 01/31/2020 3:50 PM CDT Departure - Departure Clinical Impression: Blood-tinged sputum, Chronic cough, Chronic anticoagulation, History of atrial fibrillation Time of Disposition: 16:17 Disposition: Discharge to Home or Self Care Condition: Fair Health Concerns: Pt may restart eliquis. Departure Forms: ED Discharge - Pt. Copy, Patient Portal Self Enrollment Diet: resume usual diet Activity: walking as tolerated Referrals: Bora Brown MD [Primary Care Provider] - 1-5 Days Home Medications: Ambulatory Orders Acetaminophen [Tylenol] 325 mg PO 08/23/19 Apixaban [Eliquis] 08/23/19 Budesonide (Inhalation) [Pulmicort] 0.5 mg IN 08/23/19 Cholecalciferol [Vitamin D-3] 08/23/19 Flecainide [Tambocor] 50 mg PO 08/23/19 Furosemide [Lasix] 20 mg PO 08/23/19 Ipratropium-Albuterol [Ipratropium Valentine/Albut] 08/23/19 Propylene Glycol (Ophth) [Systane Complete] 0.6 % OP 08/23/19 SUMAtriptan SUCCINATE [Imitrex] 200 mg PO 08/23/19 Additional Instructions: Return to the emergency department immediately for worsening shortness of breath, fever, increased cough, low oxygen saturations, changes in mental status, or any other concerns.
[2020-01-31 17:05] VITALS: BP 106/63; O2SAT 94
[2020-01-31 17:06] VITALS: TEMP 97.5
== END 2020-01-31 16:35 | disposition home or self-care (01) ==
LOC: ER 14:45
DX: R04.2 Hemoptysis (principal); J45.909 Unspecified asthma, uncomplicated; I48.91 Unspecified atrial fibrillation; I11.0 Hypertensive heart disease with heart failure; I50.9 Heart failure, unspecified; Z79.01 Long term (current) use of anticoagulants; Z85.118 Personal history of other malignant neoplasm of bronchus and lung; Z87.891 Personal history of nicotine dependence

== ENCOUNTER 2020-02-22 20:20 | Emergency (ER) | payer MEDICARE, OTHER ==
[2020-02-22] MEDS ORDERED: methylPREDNISolone SODIUM SUC 125 MG/2 ML VIAL IV ONE (20:26)
[2020-02-22] MEDS ORDERED: MAGNESIUM SULFATE INJ 2 GM in SODIUM CHLORIDE 0.9% 100ML 100 ML IVPB ONE (20:26)
[2020-02-22] MEDS ORDERED: SODIUM CHL 0.9% 50ML VIAL 3 ML, ALBUTEROL SULFATE NEBS 15 MG NEB ONE ×2 (20:29)
[2020-02-22] MEDS ORDERED: ALBUTEROL SULFATE 2.5 MG/3 ML VIAL NEB ONE ×2 (20:31→21:19)
[2020-02-22] MEDS ORDERED: MAGNESIUM SULFATE PREMIX 2GM 50 ML IVPB ONE (20:36)
--- NOTE | 2020-02-22 20:36 | ED.PDOC ---
History of Present Illness - General Chief Complaint: Syncope/Near Syncope Stated Complaint: syncopal episode, SOB, nausea, constipation Time Seen by Provider: 02/22/20 20:20 Source: Vital Signs reviewed, EMS notes reviewed Additional Information: 89-year-old female, with history of COPD high blood pressure patient presents via EMS, allegedly patient was having some issues with constipation, went after she was about to have a bowel movement she had a syncope episode caregivers at the assisted living facility called 911. Paramedics informed me that patient was not in any respiratory distress when they first make contact with her, by time she got into the ER she started having trouble breathing, patient on the initial evaluation was unable to communicate due to respiratory distress, she is tachypneic bilateral rales crackles and wheezing. Unable to give us an adequate history and we did not get much history from EMS except for the constipation syncope and then she decompensated in route to the hospital - History of Present Illness Improving Factors: nothing Worsening Factors: nothing Associated Symptoms: syncope, other - co Allergies/Adverse Reactions: Allergies Fluticasone [From Advair Diskus] Allergy (Verified 01/31/20 15:24) Macrolides and Ketolides Allergy (Verified 01/31/20 15:24) Salmeterol [From Advair Diskus] Allergy (Verified 01/31/20 15:24) Sulfa Antibiotics Allergy (Verified 01/31/20 15:24) Sulfacetamide [From Sulfacet-R] Allergy (Verified 01/31/20 15:24) Sulfur [From Sulfacet-R] Allergy (Verified 01/31/20 15:24) Lorazepam [From Ativan] Adverse Reaction (Unknown, Verified 01/31/20 15:24) Other Makes her mean Aspirin Adverse Reaction (Verified 01/31/20 15:24) Celecoxib [From Celebrex] Adverse Reaction (Verified 01/31/20 15:24) Morphine Adverse Reaction (Verified 01/31/20 15:24) Other Home Medications: Ambulatory Orders Acetaminophen [Tylenol] 325 mg PO 08/23/19 Apixaban [Eliquis] 08/23/19 Budesonide (Inhalation) [Pulmicort] 0.5 mg IN 08/23/19 Cholecalciferol [Vitamin D-3] 08/23/19 Flecainide [Tambocor] 50 mg PO 08/23/19 Furosemide [Lasix] 20 mg PO 08/23/19 Ipratropium-Albuterol [Ipratropium [place]/Albut] 08/23/19 Propylene Glycol (Ophth) [Systane Complete] 0.6 % OP 08/23/19 SUMAtriptan SUCCINATE [Imitrex] 200 mg PO 08/23/19 Review of Systems - Review of Systems Gastrointestinal/Abdominal: States: constipation Unable to Obtain Due To: condition, other - patient is non verbal Past Medical History (General) - Patient Medical History Hx Seizures: Yes Hx Stroke: Yes Hx Dementia: No Hx Asthma: Yes Hx of COPD: Yes Hx Cardiac Disorders: No Hx Congestive Heart Failure: Yes Hx Pacemaker: No Hx Hypertension: Yes Hx Thyroid Disease: No Hx Diabetes: No Hx Gastroesophageal Reflux: Yes Hx Renal Disease: No Hx Cancer: Yes - Lung Hx of HIV: No Hx Hepatitis C: No Hx MRSA: No - Vaccination History Hx Tetanus, Diphtheria Vaccination: - unknown Hx Influenza Vaccination: Yes Hx Pneumococcal Vaccination: Yes - Social History Hx Tobacco Use: Yes Hx Chewing Tobacco Use: No Hx Alcohol Use: No Hx Substance Use: No Hx Substance Use Treatment: No Hx Depression: No Hx Physical Abuse: No Hx Emotional Abuse: No Hx Suspected Abuse: No - Female History Patient : No Family Medical History - Family History Father Family History: Unknown Living Status: Hx Family Asthma: No Hx Family Congestive Heart Failure: Yes Hx Family Hypertension: Yes Hx Family Stroke: No Hx Cardiac Disease: Yes Hx Family Diabetes: No Hx Family Cancer: Yes - mom-ovarian;prostate-dad Physical Exam - Physical Exam General Appearance: Obvious distress Eye Exam: bilateral normal Ears, Nose, Throat: hearing grossly normal Neck: non-tender, full range of motion, supple, other Respiratory: accessory muscle use, crackles, rales, wheezing, other Cardiovascular/Chest: normal peripheral pulses, regular rate, rhythm, no edema, no gallop, no JVD, no murmur Peripheral Pulses: radial,right: 2+ Gastrointestinal/Abdominal: normal bowel sounds Rectal Exam: normal exam Back Exam: normal inspection Extremity: normal range of motion, non-tender, normal inspection, no pedal edema Neurologic: other - non due to respiratory distress Skin Exam: normal color, warm/dry Lymphatic: no adenopathy Progress - Progress Progress: The patient allegedly had a syncope episode and in route developed shortness of breath, patient physical signs real crackles rhonchi and wheezing, no signs of a true COPD but I did not see any history of CHF with the elevated blood pressure on the way the patient looked I initiated magnesium steroids I put the patient on BiPAP and also ordered IV nitro drip. 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 I ordered a covid swab, did order head CT and neuro monitoring with a family that patient does not want the patient to be intubated We will keep on BiPAP, will transfer to high-level care facility Patient was accepted We will try to get the head CT we will add a d-dimer, if elevated will try to get the CT chest to rule out PE before the patient gets transfer but will not delay transfer pending studies Departure - Departure Clinical Impression: Acute exacerbation of chronic obstructive pulmonary disease (COPD), Respiratory distress Disposition: Transfer to Hospital Departure Forms: ED Discharge - Pt. Copy, Patient Portal Self Enrollment Referrals: Bora Brown MD [Primary Care Provider] - 1-2 Weeks Home Medications: Ambulatory Orders Acetaminophen [Tylenol] 325 mg PO 08/23/19 Apixaban [Eliquis] 08/23/19 Budesonide (Inhalation) [Pulmicort] 0.5 mg IN 08/23/19 Cholecalciferol [Vitamin D-3] 08/23/19 Flecainide [Tambocor] 50 mg PO 08/23/19 Furosemide [Lasix] 20 mg PO 08/23/19 Ipratropium-Albuterol [Ipratropium [place]/Albut] 08/23/19 Propylene Glycol (Ophth) [Systane Complete] 0.6 % OP 08/23/19 SUMAtriptan SUCCINATE [Imitrex] 200 mg PO 08/23/19 Transfer to Outside Facility - Transfer Information Decision to Transfer Date: 02/22/20 Decision to Transfer Time: 21:25 Reason for Transfer: ICU
[2020-02-22] MEDS ORDERED: MAGNESIUM SULFATE PREMIX 2GM 2 GM in PREMIX BAG 1 BAG IVPB ONE (20:38)
[2020-02-22] MEDS ORDERED: NITROGLYCERIN/D5W IV 50,000 MCG in PREMIX BOTTLE 1 BOTTLE IVS SCH (21:00)
[2020-02-22] MEDS ORDERED: cefTRIAXone SODIUM 1 GM in SODIUM CHL 0.9% 50ML MIN-BAG+ 50 ML IVPB ONE (21:09)
[2020-02-22] MEDS ORDERED: AZITHROMYCIN IV 500 MG in SODIUM CHLORIDE 0.9% 250ML 250 ML IVPB ONE (21:09)
--- NOTE | 2020-02-22 21:14 | RAD ---
EXAM DESCRIPTION: Chest x-ray,1 View CLINICAL HISTORY: shortness of breath COMPARISON: January 31, 2020 FINDINGS: Focal opacity projecting at the medial left hemithorax compatible with a superimposed artifact. This limits evaluation of the mediastinum and of the focal parenchymal opacity visualized in the prior exam. Prior examination demonstrated abnormal opacity at this level worrisome for underlying mass. Patient is rotated. Right apical capping is unchanged. There is atherosclerosis. Cardiac silhouette is within normal limits. IMPRESSION: No significant change compared with the prior exam as described. Correlation with a CT recommended for further evaluation of the left upper hemithorax opacity... Electronically signed by: Oh Pedroza MD 02/22/2020 9:12 PM CDT
--- NOTE | 2020-02-22 21:26 | CT ---
PROCEDURE: Head CLINICAL HISTORY: 89 years Female ams COMPARISON: 08/23/2019 TECHNIQUE: Contiguous axial CT images obtained through the brain without IV contrast. This exam was performed according to our department optimization program which includes automated exposure control, adjustment of the mA and/or kv according to patient size and/or use of iterative reconstruction technique. FINDINGS: There is extensive motion artifact which significantly limits evaluation, particularly subtle changes in density. There is no gross abnormality noted. The ventricles and sulci are prominent consistent with atrophic changes. Microvascular ischemic changes. No midline shift or mass effect. No mass lesions. No acute hemorrhage. Atherosclerotic calcifications. No fluid or significant mucosal thickening in the visualized paranasal sinuses. No depressed calvarial fractures. IMPRESSION: Study is limited secondary to motion. No gross abnormality is identified, however subtle changes in density or early area of infarct could be easily obscured by motion artifact. Generalized atrophy with microvascular ischemic changes. Electronically signed by: Kandice Hillman MD 02/22/2020 9:24 PM CDT
[2020-02-22] MEDS ORDERED: KETOROLAC TROMETHAMINE INJ 30 MG/ML VIAL IM ONE (21:59)
[2020-02-22] MEDS ORDERED: AMOXICILLIN 500 MG CAP PO ONE (22:00)
[2020-02-22 22:23] VITALS: TEMP 97.9; O2SAT 95
--- NOTE | 2020-02-22 22:28 | CT ---
PROCEDURE: CTA Chest CLINICAL HISTORY: 89 years Female rule out pe COMPARISON: 02/22/2020 chest x-ray, 10/02/[address] TECHNIQUE: Contiguous axial images were obtained through the chest during the infusion of IV contrast. Reformatted images obtained. MIP reformatted images obtained. This exam was performed according to our department optimization program which includes automated exposure control, adjustment of the mA and/or kv according to patient size and/or use of iterative reconstruction technique. FINDINGS: Apical scarring bilaterally. There is chronic atelectasis and/or scarring in the medial aspect of the right upper lobe which was present on the patient's previous examination. Emphysematous changes are present. Changes of fibrosis are present bilaterally which appears similar to the previous. Coronary and aortic calcification. The aorta is normal in caliber without dissection or rupture. There is a spiculated lesion in the medial left upper lobe which measures 1.8 x 1.4 cm. Nodular scarring in the left lung apex which was present on the previous study. Some patchy areas of alveolar infiltrate in the left upper lobe which are indeterminant. Additional small nodular focus in the left upper lobe which measures 7 mm. Additional small nonspecific nodular foci are present. Additional soft tissue density in the left lower lobe measures 1.4 cm on image 151. Mild wall thickening and bronchi to the lower lobes. Additional small nodule in the right perihilar region measures 1 cm on image 95. IMPRESSION:No evidence of pulmonary embolus Spiculated lesion in the medial left upper lobe measuring 1.8 x 1.4 cm concerning for malignancy with numerous additional soft tissue nodules bilaterally as described. Findings could reflect primary bronchogenic neoplasm with metastatic disease or metastatic disease from additional primary Additionally, there are some vague alveolar densities which are nonspecific and may be related to infectious or inflammatory process Chronic atelectasis and scarring in the medial right upper lobe Electronically signed by: Kandice Hillman MD 02/22/2020 10:27 PM CDT
[2020-02-22 22:52] VITALS: BP 145/85
== END 2020-02-22 23:28 | disposition short-term general hospital (02) ==
LOC: ER 20:20
DX: J44.1 Chronic obstructive pulmonary disease with (acute) exacerbation (principal); R06.03 Acute respiratory distress; R55 Syncope and collapse; K59.00 Constipation, unspecified; R56.9 Unspecified convulsions; I50.9 Heart failure, unspecified; I11.0 Hypertensive heart disease with heart failure; K21.9 Gastro-esophageal reflux disease without esophagitis; Z86.73 Personal history of transient ischemic attack (TIA), and cerebral infarction without residual deficits; Z87.891 Personal history of nicotine dependence; Z85.118 Personal history of other malignant neoplasm of bronchus and lung; Z79.899 Other long term (current) drug therapy; Z88.5 Allergy status to narcotic agent; Z88.6 Allergy status to analgesic agent; Z88.8 Allergy status to other drugs, medicaments and biological substances; Z88.2 Allergy status to sulfonamides
CPT/HCPCS: 36600; 70450; 71045; 71275; 80053; 82803; 82805; 83605; 83880; 84484; 85025; 85379; 87040; 87635; 93005; 94644; 94660; J0456; J0696; J2930; J3475; J7050; J7611